=== PATIENT | female | born 1985 | race Caucasian/White ===

== ENCOUNTER 2017-01-25 14:37 | Inpatient (IN) | payer BC ==
[2017-01-25] MEDS ORDERED: Sodium Chloride 0.9% 2.5 ML Syringe FLUSH PRN (14:41)
--- NOTE | 2017-01-25 15:13 | PCM.HP ---
H&P History of Present Illness - General Date of Service: 01/25/17 Admit Problem/Dx: Admission Diagnosis/Problem Admission Diagnosis/Problem PE, Pulmonary embolism Source of Information: Patient History Limitations: Reports: No limitations - History of Present Illness Initial Comments - Free Text/Narative: This 31 year old female with pmh of HTN presented to the clinic today due to shortness of breath. She reports everyone in her office has been sick and started feeling ill on Tuesday. On Tuesday she continued to no feel well and noticed more SOB, today the SOB increased and she decided she needed to be evaluated. In the clinic, labwork was obtained. D dimer was elevated. CXR negative and CBC WNL. CT angio of chest ordered, which revealed multiple filling defects noted within the pulmonary arteries involving the right lower lobe, left upper lobe and left lower lobe bilaterally. No significant right ventricular enlargement. Heart is otherwise normal size. She reports she is currently taking control daily. She also reports she had been traveling the end of November on a flight to [place] and then on a Cruise in and near [place]. She also reports her father, who had multiple myeloma and other chronic medical issues, from a PE. She became emotional and is scared about her diagnosis. She was reassured regarding treatment and monitoring which did relieve some anxiety. She will be admitted for multiple PEs with dyspnea and tachycardia. - Related Data Allergies/Adverse Reactions: Allergies Allergy/AdvReac Type Severity Reaction Status Date / Time No Known Allergies Allergy Verified 01/25/17 15:18 Home Medications: Home Meds Hydrochlorothiazide 25 mg PO DAILY 01/25/17 [History] Levonorgestrel-Ethin Estradiol [Orsythia-28 Tablet] 1 tab PO DAILY 01/25/17 [ History] Past Medical History Cardiovascular History: Reports: Blood clots/VTE/DVT, Hypertension. Denies: CAD , [place] Respiratory History: Reports: None, PE (This admission is first. no personal history). Denies: Asthma, COPD Gastrointestinal History: Reports: None. Denies: GERD, GI bleed Genitourinary History: Reports: None. Denies: Chronic renal insuffiency Psychiatric History: Reports: None Endocrine/Metabolic History: Reports: Obesity/BMI 30+. Denies: Diabetes, type II, Hypothyroidism Hematologic History: Reports: None Social & Family History - Tobacco Use Smoking Status *Q: Former Smoker Tobacco Use Within Last Twelve Months: Cigarettes Used Tobacco, but Quit: Yes Month Tobacco Last Used: June 2016 - Alcohol Use Alcohol Use History: No Alcohol Use Frequency: Socially - Living Situation & Occupation Occupation: employed H&P Review of Systems - Review of Systems: Review Of Systems: See Below General: Reports: malaise. Denies: fever, chills HEENT: Reports: no symptoms. Denies: ear pain, headaches, post nasal drip, sinus congestion, visual changes Pulmonary: Reports: Shortness of Breath, Wheezing, Cough. Denies: Sputum Cardiovascular: Reports: chest pain (chest tightness and pressure with breathing ), dyspnea on exertion. Denies: palpitations, edema Gastrointestinal: Reports: No symptoms, Other. Denies: Abdominal pain, Black stool, Bloody stool, Nausea, Vomiting Genitourinary: Reports: no symptoms. Denies: dysuria, frequency, burning Musculoskeletal: Reports: no symptoms. Denies: leg pain Skin: Reports: no symptoms Psychiatric: Reports: no symptoms Neurological: Reports: No Symptoms Hematologic/Lymphatic: Reports: no symptoms Immunologic: Reports: no symptoms Exam - Exam Exam: See Below - Vital Signs Vital Signs: Last Vital Signs Temp 98.6 F 01/25/17 14:58 Pulse 120 H 01/25/17 14:58 Resp 18 01/25/17 14:58 BP 197/144 H 01/25/17 14:58 Pulse Ox 98 01/25/17 14:58 Weight: 186.4 kg - Exam Quality Assessment: DVT prophylaxis. No: supplemental oxygen General: alert, oriented, cooperative HEENT: Conjunctiva clear, Mucosa moist & pink, Nares patent, Normal nasal septum , Pupils reactive Neck: supple, trachea midline, 2 Lungs: Clear to auscultation, Normal respiratory effort Cardiovascular: regular rhythm, normal S1, normal S2, tachycardia. No: systolic murmur Abdomen: normal bowel sounds, soft. No: organomegaly, tenderness Extremities: normal inspection, normal pulses. No: calf tenderness, edema Neuro Extensive - Mental Status: alert, oriented x3, normal mood/affect, normal cognition Neuro Extensive - Motor, Sensory, Reflexes: CN II-XII intact, normal gait, normal reflexes Psychiatric: alert, normal affect, normal mood, anxious (intermittently) *Q Meaningful Use (ADM) - VTE *Q VTE Criteria *Q: - Stroke *Q Stroke Criteria *Q: - AMI *Q AMI Criteria *Q: - Problem List (1) Pulmonary emboli SNOMED Code(s): 53329685, 55486142 ICD Code: I26.99 - OTHER PULMONARY EMBOLISM WITHOUT ACUTE COR PULMONALE Status: Acute Current Visit: Yes Qualifiers: Chronicity: acute Acute cor pulmonale presence: without acute cor pulmonale (2) HTN (hypertension) SNOMED Code(s): 74988202 ICD Code: I10 - ESSENTIAL (PRIMARY) HYPERTENSION Status: Acute Current Visit: Yes Qualifiers: Hypertension type: essential hypertension Qualified Code(s): I10 - Essential (primary) hypertension Problem List Initiated/Reviewed/Updated: Yes Orders Last 24hrs: Active Orders 24 hr Category Date Time Status Patient Status [ADT] Routine ADT 01/25/17 14:39 Active Intake and Output [RC] QSHIFT Care 01/25/17 14:40 Active Oxygen Therapy [RC] PRN Care 01/25/17 14:39 Active Pulse Oximetry [RC] CONTINUOUS Care 01/25/17 14:40 Active Telemetry Monitoring [Cardiac Monitoring] [RC] . Care 01/25/17 14:42 Active DIRECTED Up With Assistance [RC] ASDIRECTED Care 01/25/17 14:39 Active VTE/DVT Education [RC] PER UNIT ROUTINE Care 01/25/17 14:39 Active Vital Signs [RC] Q4H Care 01/25/17 14:39 Active Regular Diet [DIET] Diet 01/25/17 Dinner Active BASIC METABOLIC PANEL,BMP [CHEM] AM Lab 01/26/17 05:11 Ordered BASIC METABOLIC PANEL,BMP [CHEM] AM Lab 01/27/17 05:11 Ordered BASIC METABOLIC PANEL,BMP [CHEM] AM Lab 01/28/17 05:11 Ordered CBC WITH AUTO DIFF [HEME] AM Lab 01/26/17 05:11 Ordered CBC WITH AUTO DIFF [HEME] AM Lab 01/27/17 05:11 Ordered CBC WITH AUTO DIFF [HEME] AM Lab 01/28/17 05:11 Ordered INR,PT,PROTHROMBIN TIME [COAG] Routine Lab 01/25/17 14:44 Ordered PTT,PARTIAL THROMBOPLSTIN TIME [COAG] Routine Lab 01/25/17 14:44 Ordered Acetaminophen [Tylenol] Med 01/25/17 14:39 Active 650 mg PO Q4H PRN Heparin Sodium/D5W [Heparin 25,000 Units in D5W 500 ML] Med 01/25/17 15:15 Ordered 25,000 units in 500 ml IV TITRATE Hydrochlorothiazide Med 01/25/17 15:15 Ordered 25 mg PO DAILY Morphine Med 01/25/17 14:39 Active 2 mg IVPUSH Q2H PRN Ondansetron [Zofran] Med 01/25/17 14:41 Active 4 mg IVPUSH Q4H PRN Sodium Chloride 0.9% [Saline Flush] Med 01/25/17 14:41 Active 2.5 ml FLUSH ASDIRECTED PRN Saline Lock Insert [OM.PC] Routine Oth 01/25/17 14:39 Ordered Resuscitation Status Routine Resus Stat 01/25/17 14:39 Ordered Medication Orders Acetaminophen (Tylenol) 650 mg PO Q4H PRN PRN Reason: Pain Heparin Sodium/Dextrose (Heparin 25,000 Units In D5w 500 Ml) 25,000 units in 500 mls @ 67.104 mls/hr IV TITRATE LAVERN; 18 UNITS/KG/HR PRN Reason: Protocol Morphine Sulfate (Morphine) 2 mg IVPUSH Q2H PRN PRN Reason: Pain (severe 7-10) Ondansetron HCl (Zofran) 4 mg IVPUSH Q4H PRN PRN Reason: Nausea Sodium Chloride (Saline Flush) 2.5 ml FLUSH ASDIRECTED PRN PRN Reason: Keep Vein Open Assessment/Plan Comment:: This 31 year old female admitted with multiple PEs 1. PE: Will intiate Heparin drip for anticoagulation. Has multiple risk factors including family history, control use and recent travel. Will discontinue control, patient aware and agrees with this. Will monitor on telemetry and continuos pulse oximetry. Oxygen PRN, analgesia for chest pain. Had discussion regarding oral regimen once heparin gtt stopped, would like to try a newer agent vs coumadin. Will monitor.
[2017-01-25] MEDS ORDERED: Heparin Sodium 5,000 Units/ML Vial IVPUSH PRN (15:20)
[2017-01-25] MEDS: Hydrochlorothiazide 25 MG Tab PO SCH (15:28)
[2017-01-25] MEDS ORDERED: Heparin Sodium 25,000 UNITS in Dextrose 5% in Water 500 ML IV SCH ×2 (15:30)
[2017-01-25] MEDS ORDERED: Heparin Sodium 5,000 Units/ML Vial IVPUSH SCH ×4 (15:30→16:06)
[2017-01-25 16:40] LABS: CHLORIDE,CL 105 mmol/L (98-110); SODIUM,NA 141 mmol/L (136-146)
[2017-01-25] MEDS ORDERED: LORazepam 1 MG Tab PO PRN (18:56)
[2017-01-26] MEDS: Acetaminophen 325 MG Tab PO PRN ×2 (00:36→09:01)
[2017-01-26 05:15] LABS: CHLORIDE,CL 103 mmol/L (98-110); SODIUM,NA 140 mmol/L (136-146)
--- NOTE | 2017-01-26 08:23 | PCM.PN ---
- General Info Date of Service: 01/26/17 Admission Dx/Problem (Free Text): Admission Diagnosis/Problem Admission Diagnosis/Problem PE, Pulmonary embolism Subjective Update: Feel good this am. Still having some SOB with chest tightness with activity and speech. When oxygen is on this is relieved. Still feeling very anxious. Functional Status: Reports: pain controlled, tolerating diet, ambulating, urinating - Review of Systems General: Reports: No Symptoms. Denies: Fever Pulmonary: Reports: shortness of breath, pleuritic chest pain. Denies: cough Cardiovascular: Reports: No Symptoms. Denies: Chest Pain, Palpitations, Edema Gastrointestinal: Reports: No symptoms. Denies: Abdominal pain, Nausea, Vomiting Genitourinary: Reports: no symptoms. Denies: dysuria, frequency, burning Musculoskeletal: Reports: no symptoms Skin: Reports: no symptoms Neurological: Reports: No Symptoms Psychiatric: Reports: no symptoms - Patient Data Vitals - most recent: Last Vital Signs Temp 97.2 F 01/26/17 04:00 Pulse 74 01/26/17 04:00 Resp 16 01/26/17 04:00 BP 134/64 01/26/17 04:00 Pulse Ox 100 01/26/17 04:00 Weight - most recent: 186.4 kg I&O - last 24 hours: Intake & Output 01/25/17 01/26/17 01/26/17 22:59 06:59 14:59 Intake Total 250 750 Balance 250 750 Lab Results last 24 hrs: Laboratory Results - last 24 hr 01/25/17 01/25/17 01/25/17 Range/Units 15:39 15:39 15:39 WBC (4.0-11.0) K/uL RBC (4.30-5.90) M/uL Hgb (12.0-16.0) g/dL Hct (36.0-46.0) % MCV (80.0-98.0) fL MCH (27.0-32.0) pg MCHC (31.0-37.0) g/dL RDW Std Deviation (28.0-62.0) fl RDW Coeff of Nicole (11.0-15.0) % Plt Count (150-400) K/uL MPV (7.40-12.00) fL Neut % (Auto) (48.0-80.0) % Lymph % (Auto) (16.0-40.0) % [place]ombs % (Auto) (0.0-15.0) % Eos % (Auto) (0.0-7.0) % Baso % (Auto) (0.0-1.5) % Neut # (Auto) (1.4-5.7) K/uL Lymph # (Auto) (0.6-2.4) K/uL [place]ombs # (Auto) (0.0-0.8) K/uL Eos # (Auto) (0.0-0.7) K/uL Baso # (Auto) (0.0-0.1) K/uL Nucleated RBC % /100WBC Nucleated RBCs # K/uL INR 1.00 (0.86-1.11) APTT 28.7 (18.6-31.3) SEC Sodium 141 (136-146) mmol/L Potassium 3.4 L (3.5-5.1) mmol/L Chloride 105 (98-110) mmol/L Carbon Dioxide 24 (21-31) mmol/L BUN 13 (6.0-23.0) mg/dL Creatinine 0.9 (0.6-1.5) mg/dL Est Cr Clr Drug Dosing 126.53 mL/min Estimated GFR (MDRD) > 60.0 ml/min Glucose 116 H (60-110) mg/dL Calcium 9.1 (8.8-10.8) mg/dL Total Bilirubin 0.3 (0.1-1.5) mg/dL AST 19 (5-40) IU/L ALT 26 (8-54) IU/L Alkaline Phosphatase 60 (40-150) Total Protein 7.9 (6.0-8.0) g/dL Albumin 3.8 (3.5-5.0) g/dL Globulin 4.1 H (2.0-3.5) g/dL Albumin/Globulin Ratio 0.9 L (1.3-2.8) 01/25/17 01/26/17 01/26/17 Range/Units 21:46 04:18 04:18 WBC 6.96 (4.0-11.0) K/uL RBC 4.84 (4.30-5.90) M/uL Hgb 12.4 (12.0-16.0) g/dL Hct 38.7 (36.0-46.0) % MCV 80.0 (80.0-98.0) fL MCH 25.6 L (27.0-32.0) pg MCHC 32.0 (31.0-37.0) g/dL RDW Std Deviation 45.7 (28.0-62.0) fl RDW Coeff of Nicole 16 H (11.0-15.0) % Plt Count 244 (150-400) K/uL MPV 9.70 (7.40-12.00) fL Neut % (Auto) 31.3 L (48.0-80.0) % Lymph % (Auto) 53.6 H (16.0-40.0) % [place]ombs % (Auto) 8.0 (0.0-15.0) % Eos % (Auto) 6.5 (0.0-7.0) % Baso % (Auto) 0.6 (0.0-1.5) % Neut # (Auto) 2.2 (1.4-5.7) K/uL Lymph # (Auto) 3.7 H (0.6-2.4) K/uL [place]ombs # (Auto) 0.6 (0.0-0.8) K/uL Eos # (Auto) 0.5 (0.0-0.7) K/uL Baso # (Auto) 0.0 (0.0-0.1) K/uL Nucleated RBC % 0.0 /100WBC Nucleated RBCs # 0 K/uL INR 1.01 (0.86-1.11) APTT 105.0 H (18.6-31.3) SEC Sodium 140 (136-146) mmol/L Potassium 3.5 (3.5-5.1) mmol/L Chloride 103 (98-110) mmol/L Carbon Dioxide 25 (21-31) mmol/L BUN 14 (6.0-23.0) mg/dL Creatinine 0.9 (0.6-1.5) mg/dL Est Cr Clr Drug Dosing 126.53 mL/min Estimated GFR (MDRD) > 60.0 ml/min Glucose 122 H (60-110) mg/dL Calcium 8.7 L (8.8-10.8) mg/dL Total Bilirubin (0.1-1.5) mg/dL AST (5-40) IU/L ALT (8-54) IU/L Alkaline Phosphatase (40-150) Total Protein (6.0-8.0) g/dL Albumin (3.5-5.0) g/dL Globulin (2.0-3.5) g/dL Albumin/Globulin Ratio (1.3-2.8) 01/26/17 Range/Units 04:18 WBC (4.0-11.0) K/uL RBC (4.30-5.90) M/uL Hgb (12.0-16.0) g/dL Hct (36.0-46.0) % MCV (80.0-98.0) fL MCH (27.0-32.0) pg MCHC (31.0-37.0) g/dL RDW Std Deviation (28.0-62.0) fl RDW Coeff of Nicole (11.0-15.0) % Plt Count (150-400) K/uL MPV (7.40-12.00) fL Neut % (Auto) (48.0-80.0) % Lymph % (Auto) (16.0-40.0) % [place]bs % (Auto) (0.0-15.0) % Eos % (Auto) (0.0-7.0) % Baso % (Auto) (0.0-1.5) % Neut # (Auto) (1.4-5.7) K/uL Lymph # (Auto) (0.6-2.4) K/uL [place]bs # (Auto) (0.0-0.8) K/uL Eos # (Auto) (0.0-0.7) K/uL Baso # (Auto) (0.0-0.1) K/uL Nucleated RBC % /100WBC Nucleated RBCs # K/uL INR 1.01 (0.86-1.11) APTT 60.4 H (18.6-31.3) SEC Sodium (136-146) mmol/L Potassium (3.5-5.1) mmol/L Chloride (98-110) mmol/L Carbon Dioxide (21-31) mmol/L BUN (6.0-23.0) mg/dL Creatinine (0.6-1.5) mg/dL Est Cr Clr Drug Dosing mL/min Estimated GFR (MDRD) ml/min Glucose (60-110) mg/dL Calcium (8.8-10.8) mg/dL Total Bilirubin (0.1-1.5) mg/dL AST (5-40) IU/L ALT (8-54) IU/L Alkaline Phosphatase (40-150) Total Protein (6.0-8.0) g/dL Albumin (3.5-5.0) g/dL Globulin (2.0-3.5) g/dL Albumin/Globulin Ratio (1.3-2.8) Med Orders - Current: Current Medications Acetaminophen (Tylenol) 650 mg PO Q4H PRN PRN Reason: Pain Last Admin: 01/26/17 00:36 Dose: 650 mg Heparin Sodium (Porcine) (Heparin Sodium) 0 units IVPUSH Q6H PRN PRN Reason: PTT LEVELS Hydrochlorothiazide (Hydrochlorothiazide) 25 mg PO DAILY LAVERN Last Admin: 01/25/17 15:28 Dose: 25 mg Heparin Sod,Pork In 0.45% Nacl (Heparin-1/2ns 25,000 Units/500) 500 mls @ 67.104 mls/hr IV TITRATE LAVERN; 18 UNITS/KG/HR PRN Reason: Protocol Last Admin: 01/26/17 01:00 Dose: 14.96 units/kg/hr, 55.8 mls/hr Lorazepam (Ativan) 1 mg PO Q6H PRN PRN Reason: Agitation Last Admin: 01/25/17 19:47 Dose: 1 mg Morphine Sulfate (Morphine) 2 mg IVPUSH Q2H PRN PRN Reason: Pain (severe 7-10) Ondansetron HCl (Zofran) 4 mg IVPUSH Q4H PRN PRN Reason: Nausea Sodium Chloride (Saline Flush) 2.5 ml FLUSH ASDIRECTED PRN PRN Reason: Keep Vein Open Discontinued Medications Heparin Sodium (Porcine) (Heparin Sodium) 5,000 units IVPUSH ONETIME LAVERN Stop: 01/25/17 17:00 Heparin Sodium (Porcine) (Heparin Sodium) 10,000 units IVPUSH ONETIME LAVERN Stop: 01/25/17 17:00 Heparin Sodium (Porcine) (Heparin Sodium) 15,000 units IVPUSH ONETIME LAVERN Stop: 01/25/17 17:00 Heparin Sodium (Porcine) (Heparin Sodium) 10,000 units IVPUSH ONETIME LAVERN Stop: 01/25/17 17:00 Last Admin: 01/25/17 16:13 Dose: 10,000 units Heparin Sodium (Porcine) 25, (000 units/ Dextrose/Water) 505 mls @ 67.77 mls/ hr IV TITRATE LAVERN; 18 UNITS/KG/HR PRN Reason: Protocol - Exam Quality Assessment: supplemental oxygen General: alert, oriented, cooperative Lungs: Clear to auscultation, Normal respiratory effort Cardiovascular: Regular Rate, Regular Rhythm Extremities: no edema, normal pulses Neurological: no new focal deficit Psy/Mental Status: alert, normal affect, normal mood - Problem List & Annotations (1) Pulmonary emboli SNOMED Code(s): 18971040, 39627497 Code(s): I26.99 - OTHER PULMONARY EMBOLISM WITHOUT ACUTE COR PULMONALE Status: Acute Current Visit: Yes Qualifiers: Chronicity: acute Acute cor pulmonale presence: without acute cor pulmonale (2) HTN (hypertension) SNOMED Code(s): 56626692 Code(s): I10 - ESSENTIAL (PRIMARY) HYPERTENSION Status: Acute Current Visit: Yes Qualifiers: Hypertension type: essential hypertension Qualified Code(s): I10 - Essential (primary) hypertension - Problem List Review Problem List Initiated/Reviewed/Updated: Yes - My Orders Last 24 Hours: My Active Orders 01/25/17 14:39 Patient Status [ADT] Routine Oxygen Therapy [RC] PRN Up With Assistance [RC] ASDIRECTED VTE/DVT Education [RC] PER UNIT ROUTINE Vital Signs [RC] Q4H Acetaminophen [Tylenol] 650 mg PO Q4H PRN Morphine 2 mg IVPUSH Q2H PRN Saline Lock Insert [OM.PC] Routine Resuscitation Status Routine 01/25/17 14:40 Intake and Output [RC] QSHIFT Pulse Oximetry [RC] CONTINUOUS 01/25/17 14:41 Ondansetron [Zofran] 4 mg IVPUSH Q4H PRN Sodium Chloride 0.9% [Saline Flush] 2.5 ml FLUSH ASDIRECTED PRN 01/25/17 14:42 Telemetry Monitoring [Cardiac Monitoring] [RC] Q8H 01/25/17 15:15 Hydrochlorothiazide 25 mg PO DAILY 01/25/17 15:19 EKG 12 Lead [EKG Documentation Completion] [RC] URGENT 01/25/17 15:20 Heparin Sodium 0 units IVPUSH Q6H PRN 01/25/17 15:30 Heparin Sod,Pork In 0.45% Nacl [Heparin-1/2Ns 25,000 Units/500] 500 ml IV TITRATE 01/25/17 Dinner Regular Diet [DIET] 01/27/17 05:11 BASIC METABOLIC PANEL,BMP [CHEM] AM CBC WITH AUTO DIFF [HEME] AM 01/28/17 05:11 BASIC METABOLIC PANEL,BMP [CHEM] AM CBC WITH AUTO DIFF [HEME] AM - Plan Plan:: This 31 year old female admitted with multiple PEs 1. PE: Continue Heparin drip for anticoagulation. Will monitor on telemetry and continuous pulse oximetry. Oxygen PRN, analgesia for chest pain. Will need to initiate Coumadin today, 10 mg and monitor INR. Unable to use new agents due to weight criteria. Will need to bridge Coumadin therapy for at least 5 days and monitor INR.
[2017-01-26] MEDS: Hydrochlorothiazide 25 MG Tab PO SCH (09:05)
[2017-01-26] MEDS: Morphine 2 MG/ML Syringe IVPUSH PRN ×2 (10:19→20:12)
[2017-01-26] MEDS: Ondansetron 4 MG/2 ML SDV IVPUSH PRN ×2 (10:19→23:37)
[2017-01-26] MEDS: LORazepam 1 MG Tab PO PRN ×2 (11:20→23:39)
[2017-01-26] MEDS ORDERED: Warfarin 10 MG Tab PO ONE (14:00)
[2017-01-27 07:41] LABS: CHLORIDE,CL 106 mmol/L (98-110); SODIUM,NA 141 mmol/L (136-146)
[2017-01-27] MEDS: Hydrochlorothiazide 25 MG Tab PO SCH (08:51)
--- NOTE | 2017-01-27 08:59 | PCM.PN ---
- General Info Date of Service: 01/27/17 Admission Dx/Problem (Free Text): Admission Diagnosis/Problem Admission Diagnosis/Problem PE, Pulmonary embolism Subjective Update: Doing better today, still has dyspnea with speech and activity, chest tightness has improved some. Feels less emotional today. Mother at bedside and discussed treatment plan and goals for Coumadin therapy and bridging with Heparin. Functional Status: Reports: pain controlled, tolerating diet, ambulating, urinating - Review of Systems General: Reports: No Symptoms Pulmonary: Reports: shortness of breath. Denies: cough Cardiovascular: Reports: Dyspnea on Exertion. Denies: Chest Pain, Edema Gastrointestinal: Reports: No symptoms. Denies: Abdominal pain, Nausea, Vomiting Genitourinary: Reports: no symptoms. Denies: dysuria, frequency, burning Musculoskeletal: Reports: no symptoms Skin: Reports: no symptoms Neurological: Reports: No Symptoms Psychiatric: Reports: no symptoms - Patient Data Vitals - most recent: Last Vital Signs Temp 97.0 F 01/27/17 08:00 Pulse 80 01/27/17 08:00 Resp 20 01/27/17 08:00 BP 150/90 H 01/27/17 08:00 Pulse Ox 99 01/27/17 08:00 Weight - most recent: 186.4 kg I&O - last 24 hours: Intake & Output 01/26/17 01/27/17 01/27/17 22:59 06:59 14:59 Intake Total 1700 2000 Output Total 900 1100 Balance 800 900 Lab Results last 24 hrs: Laboratory Results - last 24 hr 01/26/17 01/26/17 01/26/17 Range/Units 10:43 16:33 22:45 WBC (4.0-11.0) K/uL RBC (4.30-5.90) M/uL Hgb (12.0-16.0) g/dL Hct (36.0-46.0) % MCV (80.0-98.0) fL MCH (27.0-32.0) pg MCHC (31.0-37.0) g/dL RDW Std Deviation (28.0-62.0) fl RDW Coeff of Nicole (11.0-15.0) % Plt Count (150-400) K/uL MPV (7.40-12.00) fL Neut % (Auto) (48.0-80.0) % Lymph % (Auto) (16.0-40.0) % [place] % (Auto) (0.0-15.0) % Eos % (Auto) (0.0-7.0) % Baso % (Auto) (0.0-1.5) % Neut # (Auto) (1.4-5.7) K/uL Lymph # (Auto) (0.6-2.4) K/uL [place] # (Auto) (0.0-0.8) K/uL Eos # (Auto) (0.0-0.7) K/uL Baso # (Auto) (0.0-0.1) K/uL Nucleated RBC % /100WBC Nucleated RBCs # K/uL INR 1.04 0.98 0.97 (0.86-1.11) APTT 68.2 H 64.3 H 56.7 H (18.6-31.3) SEC Sodium (136-146) mmol/L Potassium (3.5-5.1) mmol/L Chloride (98-110) mmol/L Carbon Dioxide (21-31) mmol/L BUN (6.0-23.0) mg/dL Creatinine (0.6-1.5) mg/dL Est Cr Clr Drug Dosing mL/min Estimated GFR (MDRD) ml/min Glucose (60-110) mg/dL Calcium (8.8-10.8) mg/dL 01/27/17 01/27/17 01/27/17 Range/Units 07:09 07:09 07:09 WBC 6.79 (4.0-11.0) K/uL RBC 4.75 (4.30-5.90) M/uL Hgb 12.1 (12.0-16.0) g/dL Hct 38.2 (36.0-46.0) % MCV 80.4 (80.0-98.0) fL MCH 25.5 L (27.0-32.0) pg MCHC 31.7 (31.0-37.0) g/dL RDW Std Deviation 45.7 (28.0-62.0) fl RDW Coeff of Nicole 16 H (11.0-15.0) % Plt Count 228 (150-400) K/uL MPV 9.50 (7.40-12.00) fL Neut % (Auto) 41.3 L (48.0-80.0) % Lymph % (Auto) 41.2 H (16.0-40.0) % [place] % (Auto) 8.4 (0.0-15.0) % Eos % (Auto) 8.7 H (0.0-7.0) % Baso % (Auto) 0.4 (0.0-1.5) % Neut # (Auto) 2.8 (1.4-5.7) K/uL Lymph # (Auto) 2.8 H (0.6-2.4) K/uL [place] # (Auto) 0.6 (0.0-0.8) K/uL Eos # (Auto) 0.6 (0.0-0.7) K/uL Baso # (Auto) 0.0 (0.0-0.1) K/uL Nucleated RBC % 0.0 /100WBC Nucleated RBCs # 0 K/uL INR (0.86-1.11) APTT 67.9 H (18.6-31.3) SEC Sodium 141 (136-146) mmol/L Potassium 3.6 (3.5-5.1) mmol/L Chloride 106 (98-110) mmol/L Carbon Dioxide 26 (21-31) mmol/L BUN 16 (6.0-23.0) mg/dL Creatinine 0.9 (0.6-1.5) mg/dL Est Cr Clr Drug Dosing 126.53 mL/min Estimated GFR (MDRD) > 60.0 ml/min Glucose 104 (60-110) mg/dL Calcium 9.0 (8.8-10.8) mg/dL 01/27/17 Range/Units 07:09 WBC (4.0-11.0) K/uL RBC (4.30-5.90) M/uL Hgb (12.0-16.0) g/dL Hct (36.0-46.0) % MCV (80.0-98.0) fL MCH (27.0-32.0) pg MCHC (31.0-37.0) g/dL RDW Std Deviation (28.0-62.0) fl RDW Coeff of Nicole (11.0-15.0) % Plt Count (150-400) K/uL MPV (7.40-12.00) fL Neut % (Auto) (48.0-80.0) % Lymph % (Auto) (16.0-40.0) % [place] % (Auto) (0.0-15.0) % Eos % (Auto) (0.0-7.0) % Baso % (Auto) (0.0-1.5) % Neut # (Auto) (1.4-5.7) K/uL Lymph # (Auto) (0.6-2.4) K/uL [place] # (Auto) (0.0-0.8) K/uL Eos # (Auto) (0.0-0.7) K/uL Baso # (Auto) (0.0-0.1) K/uL Nucleated RBC % /100WBC Nucleated RBCs # K/uL INR 0.99 (0.86-1.11) APTT (18.6-31.3) SEC Sodium (136-146) mmol/L Potassium (3.5-5.1) mmol/L Chloride (98-110) mmol/L Carbon Dioxide (21-31) mmol/L BUN (6.0-23.0) mg/dL Creatinine (0.6-1.5) mg/dL Est Cr Clr Drug Dosing mL/min Estimated GFR (MDRD) ml/min Glucose (60-110) mg/dL Calcium (8.8-10.8) mg/dL Med Orders - Current: Current Medications Acetaminophen (Tylenol) 650 mg PO Q4H PRN PRN Reason: Pain Last Admin: 01/26/17 09:01 Dose: 650 mg Heparin Sodium (Porcine) (Heparin Sodium) 0 units IVPUSH Q6H PRN PRN Reason: PTT LEVELS Hydrochlorothiazide (Hydrochlorothiazide) 25 mg PO DAILY LAVERN Last Admin: 01/27/17 08:51 Dose: 25 mg Heparin Sod,Pork In 0.45% Nacl (Heparin-1/2ns 25,000 Units/500) 500 mls @ 67.104 mls/hr IV TITRATE LAVERN; 18 UNITS/KG/HR PRN Reason: Protocol Last Admin: 01/27/17 06:26 Dose: 14.96 units/kg/hr, 55.771 mls/hr Lorazepam (Ativan) 2 mg PO Q6H PRN PRN Reason: Anxiety Last Admin: 01/26/17 23:39 Dose: 2 mg Morphine Sulfate (Morphine) 2 mg IVPUSH Q2H PRN PRN Reason: Pain (severe 7-10) Last Admin: 01/26/17 20:12 Dose: 2 mg Ondansetron HCl (Zofran) 4 mg IVPUSH Q4H PRN PRN Reason: Nausea Last Admin: 01/26/17 23:37 Dose: 4 mg Sodium Chloride (Saline Flush) 2.5 ml FLUSH ASDIRECTED PRN PRN Reason: Keep Vein Open Warfarin Sodium (Coumadin) 15 mg PO 01/27/17@1400 LAVERN Stop: 01/27/17 14:01 Discontinued Medications Heparin Sodium (Porcine) (Heparin Sodium) 5,000 units IVPUSH ONETIME LAVERN Stop: 01/25/17 17:00 Heparin Sodium (Porcine) (Heparin Sodium) 10,000 units IVPUSH ONETIME LAVERN Stop: 01/25/17 17:00 Heparin Sodium (Porcine) (Heparin Sodium) 15,000 units IVPUSH ONETIME LAVERN Stop: 01/25/17 17:00 Heparin Sodium (Porcine) (Heparin Sodium) 10,000 units IVPUSH ONETIME LAVERN Stop: 01/25/17 17:00 Last Admin: 01/25/17 16:13 Dose: 10,000 units Heparin Sodium (Porcine) 25, (000 units/ Dextrose/Water) 505 mls @ 67.77 mls/ hr IV TITRATE LAVERN; 18 UNITS/KG/HR PRN Reason: Protocol Lorazepam (Ativan) 1 mg PO Q6H PRN PRN Reason: Agitation Last Admin: 01/25/17 19:47 Dose: 1 mg Warfarin Sodium (Coumadin) 10 mg PO ONETIME ONE Stop: 01/26/17 14:01 Last Admin: 01/26/17 14:00 Dose: 10 mg Warfarin Sodium (Coumadin Ask) 1 each PO ONETIME ONE Stop: 01/26/17 10:31 Last Admin: 01/26/17 11:28 Dose: Not Given - Exam General: alert, oriented, cooperative Lungs: Clear to auscultation, Normal respiratory effort Cardiovascular: Regular Rate, Regular Rhythm Abdomen: bowel sounds present, soft, no tenderness, no distension Extremities: no edema Neurological: no new focal deficit Psy/Mental Status: alert, normal affect, normal mood - Problem List & Annotations (1) Pulmonary emboli SNOMED Code(s): 14115442, 82930001 Code(s): I26.99 - OTHER PULMONARY EMBOLISM WITHOUT ACUTE COR PULMONALE Status: Acute Current Visit: Yes Qualifiers: Chronicity: acute Acute cor pulmonale presence: without acute cor pulmonale (2) HTN (hypertension) SNOMED Code(s): 31389814 Code(s): I10 - ESSENTIAL (PRIMARY) HYPERTENSION Status: Acute Current Visit: Yes Qualifiers: Hypertension type: essential hypertension Qualified Code(s): I10 - Essential (primary) hypertension - Problem List Review Problem List Initiated/Reviewed/Updated: Yes - My Orders Last 24 Hours: My Active Orders 01/26/17 10:29 LORazepam [Ativan] 2 mg PO Q6H PRN 01/28/17 05:11 BASIC METABOLIC PANEL,BMP [CHEM] AM CBC WITH AUTO DIFF [HEME] AM - Plan Plan:: This 31 year old female admitted with multiple PEs 1. PE: Continue Heparin drip for anticoagulation. Will monitor on telemetry and continuous pulse oximetry. Oxygen PRN, analgesia for chest pain. Continue Coumadin today pharmacy to dose and will monitor INR. Will need to bridge Coumadin therapy for at least 5 days and monitor INR.
[2017-01-27] MEDS: Acetaminophen 325 MG Tab PO PRN (13:28)
[2017-01-27] MEDS ORDERED: Warfarin 5 MG Tab PO SCH (14:00)
[2017-01-28] MEDS: LORazepam 1 MG Tab PO PRN (02:58)
[2017-01-28] MEDS: Acetaminophen 325 MG Tab PO PRN (03:03)
[2017-01-28 05:27] LABS: CHLORIDE,CL 104 mmol/L (98-110); SODIUM,NA 139 mmol/L (136-146)
[2017-01-28] MEDS: Hydrochlorothiazide 25 MG Tab PO SCH (09:18)
[2017-01-28] MEDS: Morphine 2 MG/ML Syringe IVPUSH PRN (09:46)
[2017-01-28] MEDS ORDERED: Fluticasone Propionate Nasal Spray 16 GM Bottle NASBOTH SCH (10:15)
[2017-01-28 12:26] VITALS: BP 164/121
[2017-01-28] MEDS ORDERED: Enoxaparin 150 MG/1 ML Syringe SUBCUT SCH (12:30)
[2017-01-28] MEDS ORDERED: Enoxaparin 40 MG/0.4 ML Syringe SUBCUT SCH (12:30)
[2017-01-28] MEDS ORDERED: Enoxaparin 150 MG/1 ML Syringe SUBCUT ONE (12:30)
[2017-01-28] MEDS ORDERED: Warfarin 5 MG Tab PO SCH (14:00)
--- NOTE | 2017-02-01 10:05 | PCM.DCSUM1 ---
Discharge Summary - Hospital Course Free Text/Narrative:: Admission diagnosis: 1. Multiple PE's Discharge diagnosis: 1. Multiple PE's 2. Sinus congestion 31 year old female admitted with multiple PE's as shown on Chest CT angio. Patient also had an elevated D-Dimer. She was started on a Heparin drip for bridging while starting daily Warfarin until her INR was therapeutic between 2- 3. Daily INR's were done with her INR at discharge being 1.12. She was started on Coumadin as opposed to the newer anticoagulant agents because of weight based restrictions in terms of their dosing. Throughout admission, the patients HR and RR improved to WNL and her work of breathing improved. She did not require supplemental O2 during admission. She was anxious at times throughout admission because of a family history of blood clots. Her control was d/c upon admission. At discharge, the heparin drip was stopped and she was started on Lovenox 190mg BID. Prior to leaving the hospital, the pharmacist came by to help her with her first injection. Patient also developed some sinus congestion during admission and was started on Flonase. ABX were not started as they would affect the patients INR. - Discharge Data Discharge Date: 01/28/17 Discharge Disposition: Home, Self-Care 01 Condition: Good - Patient Instructions Diet: Usual Diet as Tolerated Activity: As Tolerated Driving: May Drive Today Showering/Bathing: May Shower Notify Provider of: Fever, Increased Pain, Nausea and/or Vomiting - Discharge Plan Prescriptions/Med Rec: Enoxaparin [Lovenox] 40 mg SUBCUT Q12HR #10 syringe Enoxaparin [Lovenox] 150 mg SQ BID #10 syringe Fluticasone Propionate [Flonase] 2 sprays NASBOTH DAILY #1 bottle Home Medications: Home Meds Hydrochlorothiazide 25 mg PO DAILY 01/25/17 [History] Enoxaparin [Lovenox] 40 mg SUBCUT Q12HR #10 syringe 01/28/17 [Rx] Enoxaparin [Lovenox] 150 mg SQ BID #10 syringe 01/28/17 [Rx] Fluticasone Propionate [Flonase] 2 sprays NASBOTH DAILY #1 bottle 01/28/17 [Rx] Orphenadrine [Norflex] 100 mg PO BID #28 tab.er 01/31/17 [Rx] Warfarin [Coumadin] 15 mg PO DAILY 01/31/17 [History] methylPREDNISolone [Medrol] 4 mg PO DAILY #21 tab.ds.pk 01/31/17 [Rx] Patient Handouts: Warfarin: What You Need to Know, Fluticasone nasal spray, Enoxaparin injection, Warfarin tablets, Pulmonary Embolism, How and Where to Give Subcutaneous Injections Using a Prefilled Syringe Referrals: Radha Temple PA [Physician Roof Mechanic] - 02/02/17 10:00 am - Discharge Summary/Plan Comment DC Time >30 min.: No Discharge Summary/Plan Comment: Admission diagnosis: 1. Multiple PE's Discharge diagnosis: 1. Multiple PE's 2. Sinus congestion 31 year old female admitted with multiple PE's as shown on Chest CT angio. Patient also had an elevated D-Dimer. She was started on a Heparin drip for bridging while starting daily Warfarin until her INR was therapeutic between 2- 3. Daily INR's were done with her INR at discharge being 1.12. She was started on Coumadin as opposed to the newer anticoagulant agents because of weight based restrictions in terms of their dosing. Throughout admission, the patients HR and RR improved to WNL and her work of breathing improved. She did not require supplemental O2 during admission. She was anxious at times throughout admission because of a family history of blood clots. Her control was d/c upon admission. At discharge, the heparin drip was stopped and she was started on Lovenox 190mg BID. Prior to leaving the hospital, the pharmacist came by to help her with her first injection. Patient also developed some sinus congestion during admission and was started on Flonase. ABX were not started as they would affect the patients INR. Discharge plan: 1. Prescribed Lovenox 190mg BID until she f/u with Radha Fuchs on 02/02/17. 2. Prescribed flonase for sinus congestion 3. Prescribed Warfarin 15mg daily. Will get INR checked on Tuesday01/31/17. A referral has been [facility] to [facility]. 4. Patients control was d/c and she was told to stop taking it. - Patient Data Vitals - Most Recent: Last Vital Signs Temp 97.2 F 01/28/17 12:00 Pulse 115 H 01/28/17 12:00 Resp 18 01/28/17 12:00 BP 164/121 H 01/28/17 12:00 Pulse Ox 97 01/28/17 14:00 Weight - Most Recent: 410 lb 15.066 oz Med Orders - Current: Current Medications Discontinued Medications Acetaminophen (Tylenol) 650 mg PO Q4H PRN PRN Reason: Pain Last Admin: 01/28/17 03:03 Dose: 650 mg Enoxaparin Sodium (Lovenox) 150 mg SUBCUT ONETIME LAVERN Last Admin: 01/28/17 12:38 Dose: 150 mg Enoxaparin Sodium (Lovenox) 40 mg SUBCUT ONETIME LAVERN Last Admin: 01/28/17 12:38 Dose: 40 mg Fluticasone Propionate (Flonase) 0 gm NASBOTH DAILY LAVERN Last Admin: 01/28/17 11:16 Dose: 2 spray Heparin Sodium (Porcine) (Heparin Sodium) 0 units IVPUSH Q6H PRN PRN Reason: PTT LEVELS Heparin Sodium (Porcine) (Heparin Sodium) 5,000 units IVPUSH ONETIME LAVERN Stop: 01/25/17 17:00 Heparin Sodium (Porcine) (Heparin Sodium) 10,000 units IVPUSH ONETIME LAVERN Stop: 01/25/17 17:00 Heparin Sodium (Porcine) (Heparin Sodium) 15,000 units IVPUSH ONETIME LAVERN Stop: 01/25/17 17:00 Heparin Sodium (Porcine) (Heparin Sodium) 10,000 units IVPUSH ONETIME LAVERN Stop: 01/25/17 17:00 Last Admin: 01/25/17 16:13 Dose: 10,000 units Hydrochlorothiazide (Hydrochlorothiazide) 25 mg PO DAILY LAVERN Last Admin: 01/28/17 09:18 Dose: 25 mg Heparin Sodium (Porcine) 25, (000 units/ Dextrose/Water) 505 mls @ 67.77 mls/ hr IV TITRATE LAVERN; 18 UNITS/KG/HR PRN Reason: Protocol Heparin Sod,Pork In 0.45% Nacl (Heparin-1/2ns 25,000 Units/500) 500 mls @ 67.104 mls/hr IV TITRATE LAVERN; 18 UNITS/KG/HR PRN Reason: Protocol Last Titration: 01/28/17 06:51 Dose: 12.96 units/kg/hr, 48.315 mls/hr Lorazepam (Ativan) 1 mg PO Q6H PRN PRN Reason: Agitation Last Admin: 01/25/17 19:47 Dose: 1 mg Lorazepam (Ativan) 2 mg PO Q6H PRN PRN Reason: Anxiety Last Admin: 01/28/17 02:58 Dose: 2 mg Morphine Sulfate (Morphine) 2 mg IVPUSH Q2H PRN PRN Reason: Pain (severe 7-10) Last Admin: 01/28/17 09:46 Dose: 2 mg Ondansetron HCl (Zofran) 4 mg IVPUSH Q4H PRN PRN Reason: Nausea Last Admin: 01/26/17 23:37 Dose: 4 mg Sodium Chloride (Saline Flush) 2.5 ml FLUSH ASDIRECTED PRN PRN Reason: Keep Vein Open Warfarin Sodium (Coumadin) 10 mg PO ONETIME ONE Stop: 01/26/17 14:01 Last Admin: 01/26/17 14:00 Dose: 10 mg Warfarin Sodium (Coumadin Ask) 1 each PO ONETIME ONE Stop: 01/26/17 10:31 Last Admin: 01/26/17 11:28 Dose: Not Given Warfarin Sodium (Coumadin) 15 mg PO 01/27/17@1400 COUNT INCLUDES THE [facility] Stop: 01/27/17 14:01 Last Admin: 01/27/17 13:25 Dose: 15 mg Warfarin Sodium (Coumadin Ask) 1 each PO DAILY@1400 COUNT INCLUDES THE [facility] Warfarin Sodium (Coumadin) 15 mg PO 01/28/17@1400 COUNT INCLUDES THE [facility] Stop: 01/28/17 14:01 Last Admin: 01/28/17 13:24 Dose: 15 mg *Q Meaningful Use (DIS) - VTE *Q VTE Criteria *Q: - Stroke *Q Stroke Criteria *Q: - AMI *Q AMI Criteria *Q:
== END 2017-01-28 13:50 | disposition home or self-care (01) | DRG 134 ==
LOC: MW.MS 14:37
PROVIDERS: ADMIT Internal Medicine; ATTEND Internal Medicine
DX: I26.99 Other pulmonary embolism without acute cor pulmonale (principal); I10 Essential (primary) hypertension; Z79.3 Long term (current) use of hormonal contraceptives; Z86.718 Personal history of other venous thrombosis and embolism; E66.9 Obesity, unspecified; Z68.30 Body mass index [BMI] 30.0-30.9, adult; Z87.891 Personal history of nicotine dependence; R06.00 Dyspnea, unspecified; R79.89 Other specified abnormal findings of blood chemistry
CPT/HCPCS: 36415; 71020; 71020-26; 71275; 71275-26; 80048; 80053; 85025; 85379; 85610; 85730; 93005; A9270-GY; J1644; J1650; J2270; J2405; Q9967

== ENCOUNTER 2017-01-31 11:54 | Emergency (ER) | payer BC ==
[2017-01-31] MEDS ORDERED: Morphine 2 MG/ML Syringe IVPUSH ONE (12:23)
[2017-01-31] MEDS ORDERED: Sodium Chloride 0.9% 1,000 ML IV ONE (12:23)
[2017-01-31] MEDS ORDERED: Ondansetron 4 MG/2 ML SDV IVPUSH ONE (12:23)
[2017-01-31] MEDS ORDERED: Ketorolac 30 MG/ML SDV IVPUSH ONE (12:23)
--- NOTE | 2017-01-31 12:26 | EDM.PDOC ---
ED HPI GENERAL MEDICAL PROBLEM - General Chief Complaint: General Stated Complaint: BACK Time Seen by Provider: 01/31/17 12:25 Source of Information: Reports: Patient, Family History Limitations: Reports: No limitations - History of Present Illness INITIAL COMMENTS - FREE TEXT/NARRATIVE: History of present illness: [A 31-year-old female presenting with acute onset lower back pain. Patient was discharged from the hospital approximately 3 days ago for treatment of a PE. Patient indicates she was half asleep and rolled over this morning felt a stabbing pain in her lower back and subsequently felt like she was nauseated and would vomit. Patient indicates that it is very painful in her lower back she called to her mother from her bed and they returned here since she was instructed on discharge to return if she had any pain or any concerns. She denies any shortness of breath or difficulty breathing or any chest pain indicates that the pain is strictly related to her back and she must ambulate hunched over.] Review of systems: As per history of present illness and below otherwise all systems reviewed and negative. Past medical history: As per history of present illness and as reviewed below otherwise noncontributory. Surgical history: As per history of present illness and as reviewed below otherwise noncontributory. Social history: No reported history of drug or alcohol abuse. Family history: As per history of present illness and as reviewed below otherwise noncontributory. Physical exam: HEENT: Atraumatic, normocephalic, pupils reactive, negative for conjunctival pallor or scleral icterus, mucous membranes moist, throat clear, neck supple, nontender, trachea midline. Lungs: Clear to auscultation, breath sounds equal bilaterally, chest nontender. Heart: S1S2, regular, negative for clicks, rubs, or JVD. Abdomen: Soft, nondistended, nontender. Negative for masses or hepatosplenomegaly. Negative for costovertebral tenderness. Pelvis: Stable nontender. Genitourinary: Deferred. Rectal: Deferred. Extremities: Atraumatic, negative for cords or calf pain. Neurovascular unremarkable. Neuro: Awake, alert, oriented. Cranial nerves II through XII unremarkable. Cerebellum unremarkable. Motor and sensory unremarkable throughout. Exam nonfocal. Diagnostics: [For x-ray of the back lumbar spine sacral and coccyx] Therapeutics: [IV fluid, Toradol, Zofran, morphine] Impression: [Back pain] Plan: [Muscle relaxers, were brief bursts of steroids followup with PCP] Definitive disposition and diagnosis as appropriate pending reevaluation and review of above. Bilateral Back Pain Score (Numeric/FACES): 8 - Related Data Allergies Allergy/AdvReac Type Severity Reaction Status Date / Time No Known Allergies Allergy Verified 01/25/17 15:18 Home Meds: Home Meds Hydrochlorothiazide 25 mg PO DAILY 01/25/17 [History] Enoxaparin [Lovenox] 40 mg SUBCUT Q12HR #10 syringe 01/28/17 [Rx] Enoxaparin [Lovenox] 150 mg SQ BID #10 syringe 01/28/17 [Rx] Fluticasone Propionate [Flonase] 2 sprays NASBOTH DAILY #1 bottle 01/28/17 [Rx] Orphenadrine [Norflex] 100 mg PO BID #28 tab.er 01/31/17 [Rx] Warfarin [Coumadin] 15 mg PO DAILY 01/31/17 [History] methylPREDNISolone [Medrol] 4 mg PO DAILY #21 tab.ds.pk 01/31/17 [Rx] Past Medical History Cardiovascular History: Reports: Blood clots/VTE/DVT, Hypertension Respiratory History: Reports: None, PE Gastrointestinal History: Reports: None Genitourinary History: Reports: None 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 (see below) Other OB/BYN History: on control pills Psychiatric History: Reports: None Endocrine/Metabolic History: Reports: Obesity/BMI 30+ Hematologic History: Reports: None - Past Surgical History GI Surgical History: Reports: Appendectomy Social & Family History - Tobacco Use Smoking Status *Q: Never Smoker Used Tobacco, but Quit: Yes Month Tobacco Last Used: June 2016 Second Hand Smoke Exposure: No - Caffeine Use Caffeine Use: Reports: None - Alcohol Use Days Per Week of Alcohol Use: 1 Number of Drinks Per Day: 1 Total Drinks Per Week: 1 - Recreational Drug Use Recreational Drug Use: No - Living Situation & Occupation Occupation: employed ED ROS GENERAL - Review of Systems Review Of Systems: See Below (History of present illness) ED EXAM, GENERAL - Physical Exam Exam: See Below (History of present illness) Course - Vital Signs Last Recorded V/S: Last Vital Signs Temp 36.3 C 01/31/17 12:15 Pulse 77 01/31/17 12:15 Resp 18 01/31/17 12:15 BP 151/106 H 01/31/17 12:15 Pulse Ox 96 01/31/17 12:15 - Orders/Labs/Meds Orders: Active Orders 24 hr Category Date Time Status EKG 12 Lead [EKG Documentation Completion] [RC] STAT Care 01/31/17 13:38 Active Labs: Laboratory Tests 01/31/17 01/31/17 01/31/17 Range/Units 12:43 12:43 12:43 WBC 7.85 (4.0-11.0) K/uL RBC 5.33 (4.30-5.90) M/uL Hgb 13.8 (12.0-16.0) g/dL Hct 42.3 (36.0-46.0) % MCV 79.4 L (80.0-98.0) fL MCH 25.9 L (27.0-32.0) pg MCHC 32.6 (31.0-37.0) g/dL RDW Std Deviation 44.6 (28.0-62.0) fl RDW Coeff of Nicole 15 (11.0-15.0) % Plt Count 249 (150-400) K/uL MPV 9.40 (7.40-12.00) fL Neut % (Auto) 49.0 (48.0-80.0) % Lymph % (Auto) 38.0 (16.0-40.0) % [place] % (Auto) 8.4 (0.0-15.0) % Eos % (Auto) 4.2 (0.0-7.0) % Baso % (Auto) 0.4 (0.0-1.5) % Neut # (Auto) 3.9 (1.4-5.7) K/uL Lymph # (Auto) 3.0 H (0.6-2.4) K/uL [place] # (Auto) 0.7 (0.0-0.8) K/uL Eos # (Auto) 0.3 (0.0-0.7) K/uL Baso # (Auto) 0.0 (0.0-0.1) K/uL Nucleated RBC % 0.0 /100WBC Nucleated RBCs # 0 K/uL INR 2.10 H (0.86-1.11) Sodium 139 (136-146) mmol/L Potassium 4.1 (3.5-5.1) mmol/L Chloride 105 (98-110) mmol/L Carbon Dioxide 24 (21-31) mmol/L BUN 19 (6.0-23.0) mg/dL Creatinine 0.9 (0.6-1.5) mg/dL Est Cr Clr Drug Dosing 126.53 mL/min Estimated GFR (MDRD) > 60.0 ml/min Glucose 121 H (60-110) mg/dL Calcium 9.6 (8.8-10.8) mg/dL Total Bilirubin 0.2 (0.1-1.5) mg/dL AST 50 H (5-40) IU/L ALT 94 H (8-54) IU/L Alkaline Phosphatase 73 (40-150) Total Protein 8.3 H (6.0-8.0) g/dL Albumin 4.0 (3.5-5.0) g/dL Globulin 4.3 H (2.0-3.5) g/dL Albumin/Globulin Ratio 0.9 L (1.3-2.8) Meds: Medications Discontinued Medications Generic Name Dose Route Start Last Admin Trade Name Freq PRN Reason Stop Dose Admin Sodium Chloride 1,000 mls @ 999 mls/hr 01/31/17 12:23 01/31/17 12:44 Normal Saline IV 01/31/17 13:23 999 mls/hr STAT ONE Administration Ketorolac Tromethamine 30 mg 01/31/17 12:23 01/31/17 12:44 Toradol IVPUSH 01/31/17 12:24 30 mg ONETIME ONE Administration Morphine Sulfate 2 mg 01/31/17 12:23 01/31/17 12:45 Morphine IVPUSH 01/31/17 12:24 2 mg ONETIME ONE Administration Ondansetron HCl 8 mg 01/31/17 12:23 01/31/17 12:44 Zofran IVPUSH 01/31/17 12:24 8 mg ONETIME ONE Administration Departure - Departure Time of Disposition: 13:56 Disposition: Home, Self-Care 01 Condition: good Clinical Impression: Lower back pain Qualifiers: Chronicity: acute Back pain laterality: midline Sciatica presence: unspecified whether sciatica present Qualified Code(s): M54.5 - Low back pain Prescriptions: Orphenadrine [Norflex] 100 mg PO BID #28 tab.er methylPREDNISolone [Medrol] 4 mg PO DAILY #21 tab.ds.pk Forms: ED Department Discharge Additional Instructions: The following information is given to patients seen in the emergency department who are being discharged to home. This information is to outline your options for follow-up care. We provide all patients seen in our emergency department with a follow-up referral. The need for follow-up, as well as the timing and circumstances, are variable depending upon the specifics of your emergency department visit. If you don't have a primary care physician on staff, we will provide you with a referral. We always advise you to contact your personal physician following an emergency department visit to inform them of the circumstance of the visit and for follow-up with them and/or the need for any referrals to a consulting specialist. The emergency department will also refer you to a specialist when appropriate. This referral assures that you have the opportunity for follow-up care with a specialist. All of these measure are taken in an effort to provide you with optimal care, which includes your follow-up. Under all circumstances we always encourage you to contact your private physician who remains a resource for coordinating your care. When calling for follow-up care, please make the office aware that this follow-up is from your recent emergency room visit. If for any reason you are refused follow-up, please contact the [facility] Emergency Department at and asked to speak to the emergency department charge nurse. Take medication as directed Followup with PCP 1-2 days Return to ED as needed as discussed - My Orders Last 24 Hours: My Active Orders 01/31/17 13:38 EKG 12 Lead [EKG Documentation Completion] [RC] STAT - Assessment/Plan Last 24 Hours: My Active Orders 01/31/17 13:38 EKG 12 Lead [EKG Documentation Completion] [RC] STAT
[2017-01-31 13:17] LABS: CHLORIDE,CL 105 mmol/L (98-110); SODIUM,NA 139 mmol/L (136-146)
--- NOTE | 2017-01-31 13:43 | CR ---
EXAMINATION: Lumbar spine HISTORY: Pain COMPARISON: 07/16/2014 TECHNIQUE: AP and lateral views of the lumbar spine. Single lateral view of the sacrum and coccyx wa s obtained FINDINGS: The lumbar spinal alignment appears normal. The vertebral body heights and disc spaces devin ear well-maintained. There is no fracture or dislocation. Early marginal osteophytes are noted. The SI joints are symmetric. The sacrum and coccyx appear intact. Bone mineralization is normal. IMPRESSION: No acute osseous abnormality demonstrated.
[2017-01-31 14:24] VITALS: BP 118/78
== END 2017-01-31 14:24 | disposition home or self-care (01) ==
LOC: MW.ED 11:54
DX: M54.5 Low back pain (principal); Z79.899 Other long term (current) drug therapy; Z90.49 Acquired absence of other specified parts of digestive tract; I10 Essential (primary) hypertension; E66.9 Obesity, unspecified; Z68.42 Body mass index [BMI] 45.0-49.9, adult
CPT/HCPCS: 36415; 72100; 80053; 85025; 85610; 93005; 96361; 96374; 96375; 99284; J1885; J2270; J2405; J7040

== ENCOUNTER → 2017-02-02 | Outpatient (CLI) | payer BC | LOC: MW.CHFP 10:40 | PROVIDERS: ATTEND Physician Assistant | DX: I26.99 Other pulmonary embolism without acute cor pulmonale (principal) | CPT/HCPCS: 36415; 81291; 85300; 85303; 85306; 85610; 85611; 85613; 85670; 85730; 85732; 86146; 86147 ==

== ENCOUNTER 2017-09-11 21:48 | Observation (INO) | payer BC ==
[2017-09-11] MEDS ORDERED: Sodium Chloride 0.9% 10 ML Syringe FLUSH PRN (22:24)
[2017-09-11] MEDS ORDERED: Sodium Chloride 0.9% 2.5 ML Syringe FLUSH PRN (22:24)
--- NOTE | 2017-09-11 22:29 | EDM.PDOC ---
ED HPI GENERAL MEDICAL PROBLEM - General Chief Complaint: Headache Stated Complaint: SEIZURE Time Seen by Provider: 09/11/17 22:18 - History of Present Illness INITIAL COMMENTS - FREE TEXT/NARRATIVE: HISTORY AND PHYSICAL: History of present illness: Patient is a 32-year-old white female history of pulmonary embolus and was currently on warfarin who presents status post seizure this was witnessed and generalized lasted approximately 1-2 minutes with a postictal period upon arrival here via paramedics she's awake alert with no complaints other than mild headache and no numbness no weakness no visual disturbances she denies any recent trauma denies chest pain but states she has had some mild shortness of breath recently she states she's been compliant and therapeutic on her warfarin Review of systems: As per history of present illness and below otherwise all systems reviewed and negative. Past medical history: As per history of present illness and as reviewed below otherwise noncontributory. Surgical history: As per history of present illness and as reviewed below otherwise noncontributory. Social history: No reported history of drug or alcohol abuse. Family history: As per history of present illness and as reviewed below otherwise noncontributory. Physical exam: HEENT: Atraumatic, normocephalic, pupils reactive, negative for conjunctival pallor or scleral icterus, mucous membranes moist, throat clear, neck supple, nontender, trachea midline. Lungs: Clear to auscultation, breath sounds equal bilaterally, chest nontender. Heart: S1S2, regular, negative for clicks, rubs, or JVD. Abdomen: Soft, nondistended, nontender. Negative for masses or hepatosplenomegaly. Negative for costovertebral tenderness. Pelvis: Stable nontender. Genitourinary: Deferred. Rectal: Deferred. Extremities: Atraumatic, negative for cords or calf pain. Neurovascular unremarkable. Neuro: Awake, alert, oriented. Cranial nerves II through XII unremarkable. Cerebellum unremarkable. Motor and sensory unremarkable throughout. Exam nonfocal. Diagnostics: CBC CMP PT/INR chest x-ray EKG prolactin level urine drug screen chest x-ray CT brain Therapeutics: IV monitor Impression: #1 new onset seizure #2 history of pulmonary embolism Definitive disposition and diagnosis as appropriate pending reevaluation and review of above. Headache Pain Score (Numeric/FACES): 6 - Related Data Allergies Allergy/AdvReac Type Severity Reaction Status Date / Time No Known Allergies Allergy Verified 09/11/17 22:11 Home Meds: Home Meds Hydrochlorothiazide 25 mg PO DAILY 01/25/17 [History] Enoxaparin [Lovenox] 40 mg SUBCUT Q12HR #10 syringe 01/28/17 [Rx] Enoxaparin [Lovenox] 150 mg SQ BID #10 syringe 01/28/17 [Rx] Fluticasone Propionate [Flonase] 2 sprays NASBOTH DAILY #1 bottle 01/28/17 [Rx] Orphenadrine [Norflex] 100 mg PO BID #28 tab.er 01/31/17 [Rx] Warfarin [Coumadin] 15 mg PO DAILY 01/31/17 [History] methylPREDNISolone [Medrol] 4 mg PO DAILY #21 tab.ds.pk 01/31/17 [Rx] Past Medical History HEENT History: Reports: None Cardiovascular History: Reports: Blood Clots/VTE/DVT, Hypertension Respiratory History: Reports: None, PE Gastrointestinal History: Reports: None Genitourinary History: Reports: None 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) Other OB/BYN History: on control pills Musculoskeletal History: Reports: None Neurological History: Reports: None Psychiatric History: Reports: None Endocrine/Metabolic History: Reports: Obesity/BMI 30+ Hematologic History: Reports: None Immunologic History: Reports: None Oncologic (Cancer) History: Reports: None Dermatologic History: Reports: None - Infectious Disease History Infectious Disease History: Reports: Chicken Pox - Past Surgical History Head Surgeries/Procedures: Reports: None HEENT Surgical History: Reports: None Respiratory Surgical History: Reports: None GI Surgical History: Reports: Appendectomy Endocrine Surgical History: Reports: None Neurological Surgical History: Reports: None Musculoskeletal Surgical History: Reports: None Oncologic Surgical History: Reports: None Dermatological Surgical History: Reports: None Social & Family History - Family History Family Medical History: Noncontributory - Tobacco Use Smoking Status *Q: Never Smoker Used Tobacco, but Quit: Yes Month Tobacco Last Used: June 2016 Second Hand Smoke Exposure: No - Caffeine Use Caffeine Use: Reports: Coffee - Alcohol Use Days Per Week of Alcohol Use: 1 Number of Drinks Per Day: 1 Total Drinks Per Week: 1 - Recreational Drug Use Recreational Drug Use: No - Living Situation & Occupation Occupation: Employed ED ROS GENERAL - Review of Systems Review Of Systems: ROS reveals no pertinent complaints other than HPI. ED EXAM, GENERAL - Physical Exam Exam: See Below (The dictation) Course - Vital Signs Last Recorded V/S: Last Vital Signs Temp 36.8 C 09/11/17 22:11 Pulse 155 H 09/11/17 22:11 Resp 20 09/11/17 22:11 BP 163/106 H 09/11/17 22:11 Pulse Ox 99 09/11/17 23:10 - Orders/Labs/Meds Orders: Active Orders 24 hr Category Date Time Status Cardiac Monitoring [RC] . DIRECTED Care 09/11/17 22:24 Active EKG Documentation Completion [RC] STAT Care 09/11/17 22:24 Active Oxygen Therapy, ED [RC] ASDIRECTED Care 09/11/17 22:24 Active Chest 1V Frontal [CR] Stat Exams 09/11/17 22:25 Taken Head wo Cont [CT] Stat Exams 09/11/17 22:25 Taken Sodium Chloride 0.9% [Saline Flush] Med 09/11/17 22:24 Active 10 ml FLUSH ASDIRECTED PRN Sodium Chloride 0.9% [Saline Flush] Med 09/11/17 22:24 Active 2.5 ml FLUSH ASDIRECTED PRN Saline Lock Insert [OM.PC] Stat Oth 09/11/17 22:24 Ordered Medication Orders Sodium Chloride (Saline Flush) 10 ml FLUSH ASDIRECTED PRN PRN Reason: Keep Vein Open Sodium Chloride (Saline Flush) 2.5 ml FLUSH ASDIRECTED PRN PRN Reason: Keep Vein Open Labs: Laboratory Tests 09/11/17 09/11/17 09/11/17 Range/Units 22:05 22:05 22:44 WBC 14.09 H (4.0-11.0) K/uL RBC 4.98 (4.30-5.90) M/uL Hgb 13.9 (12.0-16.0) g/dL Hct 41.5 (36.0-46.0) % MCV 83.3 (80.0-98.0) fL MCH 27.9 (27.0-32.0) pg MCHC 33.5 (31.0-37.0) g/dL RDW Std Deviation 46.0 (28.0-62.0) fl RDW Coeff of Nicole 15 (11.0-15.0) % Plt Count 288 (150-400) K/uL MPV 9.60 (7.40-12.00) fL Neut % (Auto) 77.0 (48.0-80.0) % Lymph % (Auto) 15.7 L (16.0-40.0) % [place] % (Auto) 5.6 (0.0-15.0) % Eos % (Auto) 1.5 (0.0-7.0) % Baso % (Auto) 0.2 (0.0-1.5) % Neut # (Auto) 10.9 H (1.4-5.7) K/uL Lymph # (Auto) 2.2 (0.6-2.4) K/uL [place] # (Auto) 0.8 (0.0-0.8) K/uL Eos # (Auto) 0.2 (0.0-0.7) K/uL Baso # (Auto) 0.0 (0.0-0.1) K/uL Nucleated RBC % 0.0 /100WBC Nucleated RBCs # 0 K/uL INR (0.86-1.11) Sodium (136-146) mmol/L Potassium (3.5-5.1) mmol/L Chloride (98-110) mmol/L Carbon Dioxide (21-31) mmol/L BUN (6.0-23.0) mg/dL Creatinine (0.6-1.5) mg/dL Est Cr Clr Drug Dosing mL/min Estimated GFR (MDRD) ml/min Glucose (60-110) mg/dL Calcium (8.8-10.8) mg/dL Total Bilirubin (0.1-1.5) mg/dL AST (5-40) IU/L ALT (8-54) IU/L Alkaline Phosphatase (40-150) Total Protein (6.0-8.0) g/dL Albumin (3.5-5.0) g/dL Globulin (2.0-3.5) g/dL Albumin/Globulin Ratio (1.3-2.8) Prolactin (0-27) ng/mL HCG, Qual (NEG) Urine Color YELLOW Urine Appearance SLT CLOUDY Urine pH 5.5 (5.0-8.0) Ur Specific [place] >= 1.030 (1.001-1.035) Urine Protein TRACE (NEGATIVE) mg/dL Urine Glucose (UA) NEGATIVE (NEGATIVE) mg/dL Urine Ketones NEGATIVE (NEGATIVE) mg/dL Urine Occult Blood NEGATIVE (NEGATIVE) Urine Nitrite NEGATIVE (NEGATIVE) Urine Bilirubin NEGATIVE (NEGATIVE) Urine Urobilinogen 0.2 (<2.0) EU/dL Ur Leukocyte Esterase SMALL (NEGATIVE) Urine RBC 0-3 (0-2/HPF) Urine WBC 4-6 (0-5/HPF) Ur Epithelial Cells MODERATE (NONE-FEW) Urine Bacteria FEW (NEGATIVE) Urine Opiates Screen NEGATIVE (NEGATIVE) Ur Oxycodone Screen NEGATIVE (NEGATIVE) Urine Methadone Screen NEGATIVE (NEGATIVE) Ur Barbiturates Screen NEGATIVE (NEGATIVE) Ur Phencyclidine Scrn NEGATIVE (NEGATIVE) Ur Amphetamine Screen NEGATIVE (NEGATIVE) U Methamphetamines Scrn NEGATIVE (NEGATIVE) U Benzodiazepines Scrn NEGATIVE (NEGATIVE) U Cocaine Metab Screen NEGATIVE (NEGATIVE) U Marijuana (THC) Screen NEGATIVE (NEGATIVE) 09/11/17 09/11/17 09/11/17 Range/Units 22:44 22:44 22:44 WBC (4.0-11.0) K/uL RBC (4.30-5.90) M/uL Hgb (12.0-16.0) g/dL Hct (36.0-46.0) % MCV (80.0-98.0) fL MCH (27.0-32.0) pg MCHC (31.0-37.0) g/dL RDW Std Deviation (28.0-62.0) fl RDW Coeff of Nicole (11.0-15.0) % Plt Count (150-400) K/uL MPV (7.40-12.00) fL Neut % (Auto) (48.0-80.0) % Lymph % (Auto) (16.0-40.0) % [place] % (Auto) (0.0-15.0) % Eos % (Auto) (0.0-7.0) % Baso % (Auto) (0.0-1.5) % Neut # (Auto) (1.4-5.7) K/uL Lymph # (Auto) (0.6-2.4) K/uL [place] # (Auto) (0.0-0.8) K/uL Eos # (Auto) (0.0-0.7) K/uL Baso # (Auto) (0.0-0.1) K/uL Nucleated RBC % /100WBC Nucleated RBCs # K/uL INR 2.02 H (0.86-1.11) Sodium 136 (136-146) mmol/L Potassium 3.5 (3.5-5.1) mmol/L Chloride 102 (98-110) mmol/L Carbon Dioxide 22 (21-31) mmol/L BUN 14 (6.0-23.0) mg/dL Creatinine 1.3 (0.6-1.5) mg/dL Est Cr Clr Drug Dosing 86.81 mL/min Estimated GFR (MDRD) 48.1 ml/min Glucose 214 H (60-110) mg/dL Calcium 9.7 (8.8-10.8) mg/dL Total Bilirubin 0.2 (0.1-1.5) mg/dL AST 15 (5-40) IU/L ALT 20 (8-54) IU/L Alkaline Phosphatase 83 (40-150) Total Protein 8.1 H (6.0-8.0) g/dL Albumin 4.0 (3.5-5.0) g/dL Globulin 4.1 H (2.0-3.5) g/dL Albumin/Globulin Ratio 1.0 L (1.3-2.8) Prolactin 36 H (0-27) ng/mL HCG, Qual NEGATIVE (NEG) Urine Color Urine Appearance Urine pH (5.0-8.0) Ur Specific [place] (1.001-1.035) Urine Protein (NEGATIVE) mg/dL Urine Glucose (UA) (NEGATIVE) mg/dL Urine Ketones (NEGATIVE) mg/dL Urine Occult Blood (NEGATIVE) Urine Nitrite (NEGATIVE) Urine Bilirubin (NEGATIVE) Urine Urobilinogen (<2.0) EU/dL Ur Leukocyte Esterase (NEGATIVE) Urine RBC (0-2/HPF) Urine WBC (0-5/HPF) Ur Epithelial Cells (NONE-FEW) Urine Bacteria (NEGATIVE) Urine Opiates Screen (NEGATIVE) Ur Oxycodone Screen (NEGATIVE) Urine Methadone Screen (NEGATIVE) Ur Barbiturates Screen (NEGATIVE) Ur Phencyclidine Scrn (NEGATIVE) Ur Amphetamine Screen (NEGATIVE) U Methamphetamines Scrn (NEGATIVE) U Benzodiazepines Scrn (NEGATIVE) U Cocaine Metab Screen (NEGATIVE) U Marijuana (THC) Screen (NEGATIVE) Meds: Medications Generic Name Dose Route Start Last Admin Trade Name Fretroy PRN Reason Stop Dose Admin Sodium Chloride 10 ml 09/11/17 22:24 Saline Flush FLUSH ASDIRECTED PRN Keep Vein Open Sodium Chloride 2.5 ml 09/11/17 22:24 Saline Flush FLUSH ASDIRECTED PRN Keep Vein Open Discontinued Medications Generic Name Dose Route Start Last Admin Trade Name Freq PRN Reason Stop Dose Admin Ondansetron HCl 4 mg 09/11/17 23:38 Zofran IVPUSH 09/11/17 23:39 ONETIME ONE Departure - Departure Time of Disposition: 23:42 Disposition: Refer to Observation Condition: Good Clinical Impression: New onset seizure, History of pulmonary embolus (PE) - Discharge Information Referrals: PCP,None [Primary Care Provider] - Forms: ED Department Discharge - My Orders Last 24 Hours: My Active Orders 09/11/17 22:24 Cardiac Monitoring [RC] . DIRECTED EKG Documentation Completion [RC] STAT Oxygen Therapy, ED [RC] ASDIRECTED Sodium Chloride 0.9% [Saline Flush] 10 ml FLUSH ASDIRECTED PRN Sodium Chloride 0.9% [Saline Flush] 2.5 ml FLUSH ASDIRECTED PRN Saline Lock Insert [OM.PC] Stat 09/11/17 22:25 Chest 1V Frontal [CR] Stat Head wo Cont [CT] Stat - Assessment/Plan Last 24 Hours: My Active Orders 09/11/17 22:24 Cardiac Monitoring [RC] . DIRECTED EKG Documentation Completion [RC] STAT Oxygen Therapy, ED [RC] ASDIRECTED Sodium Chloride 0.9% [Saline Flush] 10 ml FLUSH ASDIRECTED PRN Sodium Chloride 0.9% [Saline Flush] 2.5 ml FLUSH ASDIRECTED PRN Saline Lock Insert [OM.PC] Stat 09/11/17 22:25 Chest 1V Frontal [CR] Stat Head wo Cont [CT] Stat
[2017-09-11] MEDS ORDERED: Ondansetron 4 MG/2 ML SDV IVPUSH ONE (23:38)
[2017-09-12] MEDS ORDERED: levETIRAcetam 500 MG Tab PO ONE (00:58)
[2017-09-12] MEDS ORDERED: FLU Vacc QS 2017-18 (36mos UP)/PF 60 MCG/0.5 ML Syringe IM SCH (01:00)
[2017-09-12] MEDS ORDERED: LORazepam 2 MG/ML SDV IVPUSH PRN (01:01)
[2017-09-12] MEDS: Morphine 2 MG/ML Syringe IVPUSH PRN ×3 (02:13→12:52)
[2017-09-12 08:02] LABS: CHLORIDE,CL 105 mmol/L (98-110); SODIUM,NA 138 mmol/L (136-146)
[2017-09-12 09:41] VITALS: BP 126/83
--- NOTE | 2017-09-12 10:18 | PCM.HP ---
H&P History of Present Illness - General Date of Service: 09/12/17 Admit Problem/Dx: Admission Diagnosis/Problem Admission Diagnosis/Problem Seizure Source of Information: Patient History Limitations: Reports: No Limitations - History of Present Illness Initial Comments - Free Text/Narative: This 32 year old female with pmh of PE on chronic anticoagulation, HTN, obesity presented to the ED via EMS with seizure activity witnessed by her brother and mother. What she last remembers was she was sitting on the couch watching TV and then waking up in the ambulance. From reports from family, her mother started hearing weird noises from the living room and called out to her with no response they headed to the living room and noted her to be having a generalized seizure, arms and legs were stiff, she had blue lips. This last approimately 1-2 minutes and she then woke up, initially groggy mumbling then she become more alert and was near normal when the ambulance arrived. She reports no recent head trauma, no fevers or suspected infections. No alcohol intake and no recreational drug use. She does not smoke or use tobacco products. She reports she has had very little sleep the last couple days with family around, maybe 4 hours total in the last day and a half. She reports never having seizure activity in the past, a half brother reported he had a seizure 6 months ago, but never sought medical treatment/workup for this. She recently started the Keto diet to help with losing weight, she knows to monitor amount of leafy greens she is taking in due to Warfarin. In the ED leukocytosis was noted 14,090. INR 2.02, Prolactin 36, HCG negative. Toxicology screen negative. Head CT negative and CXR negative. UA negative as well. Keppra 1,000 mg PO given in ED. She was admitted for observation on telemetry for new onset seizure. Headache Pain Score (Numeric/FACES): 8 Right Arm Pain Score (Numeric/FACES): 8 - Related Data Allergies/Adverse Reactions: Allergies Allergy/AdvReac Type Severity Reaction Status Date / Time No Known Allergies Allergy Verified 09/11/17 22:11 Home Medications: Home Meds Hydrochlorothiazide 25 mg PO DAILY 01/25/17 [History] Warfarin [Coumadin] 10 mg PO DAILY 01/31/17 [History] Acetaminophen/HYDROcodone [Olympia 325-10 MG] 1 tab PO Q4H PRN #20 tablet [Rx] Losartan [Cozaar] 50 mg PO DAILY 09/12/17 [History] metFORMIN [Glucophage] 500 mg PO DAILY 09/12/17 [History] Past Medical History HEENT History: Reports: Impaired Vision Other HEENT History: uses eyeglasses Cardiovascular History: Reports: Blood Clots/VTE/DVT, Hypertension. Denies: Heart Failure, MA Respiratory History: Reports: PE Gastrointestinal History: Reports: None. Denies: GI Bleed Genitourinary History: Reports: None. Denies: Acute Renal Failure, Chronic Renal Insuffiency COPYMAN History: Reports: Other (See Below) Other OB/BYN History: on control pills Musculoskeletal History: Reports: None Neurological History: Reports: None Psychiatric History: Reports: Anxiety Endocrine/Metabolic History: Reports: Diabetes, Type II (borderline, metformin daily), Obesity/BMI 30+ Hematologic History: Reports: None Immunologic History: Reports: None Oncologic (Cancer) History: Reports: None Dermatologic History: Reports: None - Infectious Disease History Infectious Disease History: Reports: Chicken Pox - Past Surgical History Head Surgeries/Procedures: Reports: None HEENT Surgical History: Reports: None Cardiovascular Surgical History: Reports: None Respiratory Surgical History: Reports: None GI Surgical History: Reports: Appendectomy Endocrine Surgical History: Reports: None Neurological Surgical History: Reports: None Musculoskeletal Surgical History: Reports: Other (See Below) Other Musculoskeletal Surgeries/Procedures:: meniscus repair left knee Oncologic Surgical History: Reports: None Dermatological Surgical History: Reports: None Social & Family History - Family History Respiratory: Reports: PE (father) Neurological: Reports: Seizure (half brother who never was worked up for it, otherwise no known family history) - Tobacco Use Smoking Status *Q: Former Smoker Used Tobacco, but Quit: No Month Tobacco Last Used: June 2016 Second Hand Smoke Exposure: No - Caffeine Use Caffeine Use: Reports: Coffee Caffeine Use Comment: 2 cups a day - Alcohol Use Days Per Week of Alcohol Use: 1 Number of Drinks Per Day: 1 Total Drinks Per Week: 1 Alcohol Use Frequency: Rarely, Socially - Recreational Drug Use Recreational Drug Use: No - Living Situation & Occupation Living situation: Reports: Single 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 Denies: Fever, Chills HEENT: Reports: No Symptoms. Denies: Headaches, Hearing Changes, Sinus Congestion, Sore Throat, Visual Changes Pulmonary: Reports: No Symptoms. Denies: Shortness of Breath, Wheezing, Cough, Sputum Cardiovascular: Reports: No Symptoms. Denies: Chest Pain, Palpitations, Edema Gastrointestinal: Reports: No Symptoms. Denies: Abdominal Pain, Black Stool, Bloody Stool, Nausea, Vomiting Musculoskeletal: Reports: Neck Pain (tension not really pain. ), Shoulder Pain ( tension, not really pain), Arm Pain (mid R arm bruising unclear of how this happened. very sore. ). Denies: Leg Pain Psychiatric: Reports: No Symptoms. Denies: Confusion Neurological: Reports: Seizure (last evening.). Denies: Dizziness, Numbness, Paresthesia, Syncope, Trouble Speaking Exam - Exam Exam: See Below - Vital Signs Vital Signs: Last Vital Signs Temp 97.9 F 09/12/17 08:00 Pulse 85 09/12/17 08:00 Resp 16 09/12/17 08:00 BP 126/83 09/12/17 08:00 Pulse Ox 97 09/12/17 08:00 Weight: 186.563 kg - Exam General: Alert, Oriented, Cooperative HEENT: Conjunctiva Clear, Mucosa Moist & Poole, Posterior Pharynx Clear, Pupils Reactive, Other (no tongue abrasions or lacerations from seizure) Neck: Supple, Trachea Midline, 2 Lungs: Clear to Auscultation, Normal Respiratory Effort Cardiovascular: Regular Rate, Regular Rhythm, Normal S1, Normal S2. No: Systolic Murmur GI/Abdominal Exam: Normal Bowel Sounds, Soft, Non-Tender, No Organomegaly, No Distention, No Abnormal Bruit, No Mass, Pelvis Stable, Other (obese abdomen) Extremities: Normal Inspection, Normal Range of Motion, Non-Tender, No Pedal Edema, Normal Capillary Refill Skin: Ecchymosis (bruising noted mid humerus, some pain and swelling noted. Patient reports "muscle pain". ) Neurological: Cranial Nerves Intact, Reflexes Equal Bilateral, Strength Equal Bilateral, Normal Gait, Normal Speech Neuro Extensive - Mental Status: Alert, Oriented x3, Normal Mood/Affect, Normal Cognition, Memory Intact Neuro Extensive - Motor, Sensory, Reflexes: CN II-XII Intact, Normal Gait, Normal Reflexes Psychiatric: Alert, Normal Affect, Normal Mood - Patient Data Lab Results Last 24 hrs: Laboratory Results - last 24 hr 09/12/17 09/12/17 09/12/17 Range/Units 06:28 06:28 08:28 WBC 13.62 H (4.0-11.0) K/uL RBC 4.63 (4.30-5.90) M/uL Hgb 13.0 (12.0-16.0) g/dL Hct 38.6 (36.0-46.0) % MCV 83.4 (80.0-98.0) fL MCH 28.1 (27.0-32.0) pg MCHC 33.7 (31.0-37.0) g/dL RDW Std Deviation 46.7 (28.0-62.0) fl RDW Coeff of Nicole 15 (11.0-15.0) % Plt Count 269 (150-400) K/uL MPV 9.60 (7.40-12.00) fL Nucleated RBC % 0.0 /100WBC Nucleated RBCs # 0 K/uL Sodium 138 (136-146) mmol/L Potassium 3.3 L (3.5-5.1) mmol/L Chloride 105 (98-110) mmol/L Carbon Dioxide 24 (21-31) mmol/L BUN 15 (6.0-23.0) mg/dL Creatinine 0.9 (0.6-1.5) mg/dL Est Cr Clr Drug Dosing 125.23 mL/min Estimated GFR (MDRD) > 60.0 ml/min Glucose 107 (60-110) mg/dL Calcium 8.6 L (8.8-10.8) mg/dL Magnesium 1.5 (1.5-2.3) mEq/L TSH 3rd Generation 1.86 (0.47-5.0) uIU/mL Result Diagrams: 09/12/17 06:28 09/12/17 06:28 *Q Meaningful Use (ADM) - VTE *Q VTE Criteria *Q: - Stroke *Q Stroke Criteria *Q: - AMI *Q AMI Criteria *Q: - Problem List (1) New onset seizure SNOMED Code(s): 69735412 ICD Code: R56.9 - UNSPECIFIED CONVULSIONS Status: Acute Current Visit: Yes (2) Right arm pain SNOMED Code(s): 440880075 ICD Code: M79.601 - PAIN IN RIGHT ARM Status: Acute Current Visit: Yes (3) History of pulmonary embolus (PE) SNOMED Code(s): 736628405 ICD Code: Z86.711 - PERSONAL HISTORY OF PULMONARY EMBOLISM Status: Chronic Current Visit: Yes (4) HTN (hypertension) SNOMED Code(s): 24541314 ICD Code: I10 - ESSENTIAL (PRIMARY) HYPERTENSION Status: Chronic Current Visit: No Qualifiers: Hypertension type: essential hypertension Qualified Code(s): I10 - Essential (primary) hypertension (5) Obesity SNOMED Code(s): 976818224 ICD Code: E66.9 - OBESITY, UNSPECIFIED Status: Chronic Current Visit: Yes Qualifiers: Obesity type: due to excess calories Body mass index: BMI 45.0-49.9 Problem List Initiated/Reviewed/Updated: Yes Orders Last 24hrs: Active Orders 24 hr Category Date Time Status Patient Status [ADT] Routine ADT 09/12/17 00:53 Active Antiembolic Devices [RC] PER UNIT ROUTINE Care 09/12/17 00:58 Active Neuro Check [RC] Q2H Care 09/12/17 01:00 Active Oxygen Therapy [RC] PRN Care 09/12/17 00:53 Active Pulse Oximetry [RC] PRN Care 09/12/17 00:54 Active Telemetry Monitoring [Cardiac Monitoring] [RC] Q8H Care 09/12/17 00:28 Active Up With Assistance [RC] ASDIRECTED Care 09/12/17 00:53 Active Vital Signs [RC] Q4H Care 09/12/17 00:53 Active 2 Gram Sodium Diet [DIET] Diet 09/12/17 Breakfast Active FLU Vacc [id number] 36mos UP/PF [Fluarix Quad [id number]] Med 09/12/17 01:00 Active 60 mcg IM .ONCE Hydrochlorothiazide Med 09/13/17 09:00 Active 25 mg PO DAILY LORazepam [Ativan] Med 09/12/17 01:01 Active 2 mg IVPUSH Q4H PRN Losartan [Cozaar] Med 09/13/17 09:00 Active 50 mg PO DAILY Morphine Med 09/12/17 01:23 Active 2 mg IVPUSH Q2H PRN Warfarin [Coumadin] Med 09/12/17 14:00 Active 10 mg PO DAILY@1400 levETIRAcetam [Keppra] Med 09/12/17 21:00 Active 500 mg PO BID Seizure Precautions [OM.PC] Routine Oth 09/12/17 01:01 Ordered Sequential Compression Device [OM.PC] Per Unit Routine Oth 09/12/17 00:57 Ordered Resuscitation Status Routine Resus Stat 09/12/17 00:53 Ordered Medication Orders Hydrochlorothiazide (Hydrochlorothiazide) 25 mg PO DAILY [facility] Influenza Virus Vaccine (Fluarix Quad 9821-5734) 60 mcg IM .ONCE [facility] Levetiracetam (Keppra) 500 mg PO BID [facility] Lorazepam (Ativan) 2 mg IVPUSH Q4H PRN PRN Reason: Seizures Losartan Potassium (Cozaar) 50 mg PO DAILY [facility] Morphine Sulfate (Morphine) 2 mg IVPUSH Q2H PRN PRN Reason: Pain Last Admin: 09/12/17 07:39 Dose: 2 mg Admin: 09/12/17 02:13 Dose: 2 mg Sodium Chloride (Saline Flush) 10 ml FLUSH ASDIRECTED PRN PRN Reason: Keep Vein Open Last Admin: 09/11/17 23:49 Dose: 10 ml Sodium Chloride (Saline Flush) 2.5 ml FLUSH ASDIRECTED PRN PRN Reason: Keep Vein Open Last Admin: 09/11/17 23:50 Dose: 2.5 ml Warfarin Sodium (Coumadin) 10 mg PO DAILY@1400 [facility] Assessment/Plan Comment:: This 32 year old female admitted for new onset seizure ADMISSION/DISCHARGE PLAN 1. New onset seizure: Labwork WNL. No further seizures. I spoke with Dr. rod regarding this patient and she requested outpatient MRI and sleep deprived EEG. She recommended to hold off on starting Keppra. Telemetry shows no arrhythmia. SR 80-100s. She will follow up on test results and see patient as an outpatient. Patient is alert and oriented now and comfortable with discharge this morning. Brother at bedside to hear instructions and seizure precautions to follow at home. She was explained the [place] law, that she is unable to drive for 6 months. She will be arranged with outpatient MRI and sleep deprived EEG this week. She will also follow up with PCP. She understands not continuing Keppra. 2. R upper arm pain: Injury likely occured during seizure. muscle soreness as patient describes, some bruisnig noted, no taughtness ,but scant swelling. She is able to move extremity/fingers but has some pain in her shoulder upon movement. ICE is helping. She was encouraged to monitor this for worsening hematoma, especially due to anticoagulation. She declines wanting xray, " I don' t think is a bone issue, is muscle, Ill be ok." Brother at bedside who also agrees. He remembers trying to lift her and give her the heimlich because he thought she was choking. She will be given Olympia 10/325 mg 1 tab every 4-6 hrs PRN pain #20 no refills. She is unable to take NSAIDs due to anticoagulation. She was also encouraged to elevated and ice PRN. She will follow with PCP as well. 3. Hx PE: Continue Warfarin. INR therapeutic' 4. HTN: stable, Continue HCTZ/Losartan Return to Clinic or ED if concerns should arise. Brother at bedside who will be at home with her as well and all questions and concerns answered.
[2017-09-12] MEDS ORDERED: Acetaminophen/HYDROcodone 325-10 MG Tab PO PRN (10:37)
[2017-09-12] MEDS ORDERED: Warfarin 10 MG Tab PO SCH (14:00)
--- NOTE | 2017-09-12 17:33 | CR ---
EXAM DATE: 09/11/17 PATIENT'S AGE: 32 Patient: OSCAR MINOR Facility: [place], [place] Site . Site : 1985 Study: XRay Chest [id number]/26/2017 11:30:11 PM Ordering Physician: Colette Aragon Final Report: INDICATION: pain/sob TECHNIQUE: Chest 1 view. COMPARISON: None. FINDINGS: Cardiovascular and mediastinum: Heart size and vasculature are normal in caliber and appearance. Mediastinum is within normal limits. Lungs and pleural space: Lungs are clear. No sign of infiltrate or mass. No sign of pleural effusion. No pneumothorax. Bones and soft tissues: No significant findings. IMPRESSION: Unremarkable chest. Dictated by: Jeffrey Sky MD @ 09/11/2017 23:55:12 (Electronic Signature) Report Signed by Proxy. [facility]Alfonso
--- NOTE | 2017-09-12 17:34 | CT ---
EXAM DATE: 09/11/17 PATIENT'S AGE: 32 Patient: OSCAR MINOR Facility: [place], [place] Site . Site : 1985 Study: CT Head [id number]/26/2017 11:32:53 PM Ordering Physician: Colette Aragon Final Report: INDICATION: Seizure TECHNIQUE: CT head without contrast. COMPARISON: None FINDINGS: CSF spaces: Within normal limits for age. Brain parenchyma: The nuñez-white differentiation is normal. No sign of mass, hemorrhage, or midline shift. Skull base and calvarium: The visualized paranasal sinuses and mastoid air cells demonstrate no acute or significant findings. The visualized orbits are grossly unremarkable. No skull fractures. IMPRESSION: Unremarkable noncontrast head CT. Dictated by Jeffrey Sky MD @ 09/11/2017 11:58:31 PM Dictated by: Jeffrey Sky MD @ 09/11/2017 23:58:37 (Electronic Signature) Report Signed by Proxy. [facility]
[2017-09-12] MEDS ORDERED: levETIRAcetam 500 MG Tab PO SCH (21:00)
[2017-09-13] MEDS ORDERED: Losartan 50 MG Tab PO SCH (09:00)
[2017-09-13] MEDS ORDERED: Hydrochlorothiazide 25 MG Tab PO SCH (09:00)
== END 2017-09-12 13:20 | disposition home or self-care (01) ==
LOC: MW.ED 21:48 → MW.MS 23:43
PROVIDERS: ADMIT Internal Medicine; ATTEND Internal Medicine
DX: R56.9 Unspecified convulsions (principal); M79.601 Pain in right arm; I10 Essential (primary) hypertension; E11.9 Type 2 diabetes mellitus without complications; F41.9 Anxiety disorder, unspecified; E66.09 Other obesity due to excess calories; Z68.42 Body mass index [BMI] 45.0-49.9, adult; Z86.711 Personal history of pulmonary embolism; Z86.718 Personal history of other venous thrombosis and embolism; Z79.01 Long term (current) use of anticoagulants; Z79.84 Long term (current) use of oral hypoglycemic drugs; Z79.3 Long term (current) use of hormonal contraceptives; Z79.899 Other long term (current) drug therapy; Z98.890 Other specified postprocedural states; Z87.891 Personal history of nicotine dependence
CPT/HCPCS: 36415; 70450; 71010; 80048; 80053; 80305; 81001; 83735; 84146; 84443; 84703; 85025; 85027; 85610; 93005; 96374; 96375; 96376; 99285; A9270; G0378; J2270; J2405; 99283

== ENCOUNTER 2020-10-24 18:40 | Emergency (ER) | payer BC ==
[2020-10-24] MEDS ORDERED: Codeine/Promethazine 10-6.25 MG/5 ML Syrup 5 ML UD Cup PO STA (19:10)
[2020-10-24] MEDS ORDERED: Sodium Chloride 0.9% 1,000 ML IV ONE ×2 (19:10→20:45)
[2020-10-24 19:44] LABS: CARBON DIOXIDE,CO2 26.9 mmol/L (21.0-32.0); POTASSIUM,K 3.5 mmol/L (3.5-5.1)
--- NOTE | 2020-10-24 19:46 | EDM.PDOC ---
ED HPI GENERAL MEDICAL PROBLEM - General Chief Complaint: ENT Problem Stated Complaint: STREP, ABCESS TOOTH, UNABLE TO EAT OR DRINK Time Seen by Provider: 10/24/20 18:41 Source of Information: Reports: Patient History Limitations: Reports: No Limitations - History of Present Illness INITIAL COMMENTS - FREE TEXT/NARRATIVE: HISTORY AND PHYSICAL: History of present illness: Patient is a 35-year-old female who presents to the emergency room with complaints of throat pain, fever, difficulty/pain with swallowing and eating. She was seen at the clinic yesterday and was told she had strep throat and a dental abscess. She was started on Augmentin yesterday but does not feel any improvement. Her pain is "so bad I feel nauseated". She is able to swallow although this does cause increased pain. She states she was also tested for COVID-19, negative. Patient denies any chills, headache, change in vision, syncope or near syncope. Denies any chest pain, back pain, shortness of breath or cough. Denies any abdominal pain, vomiting, diarrhea, constipation or dysuria. Review of systems: As per history of present illness and below otherwise all systems reviewed and negative. Past medical history: As per history of present illness and as reviewed below otherwise noncontributory. Surgical history: As per history of present illness and as reviewed below otherwise nonco ntributory. Social history: See social history for further information Family history: As per history of present illness and as reviewed below otherwise noncontributory. Physical exam: General: Well developed and well nourished. Alert and orientated x 3. Nontoxic in appearance and in no acute distress. Vital signs are stable and have been reviewed by me. Nursing notes were reviewed. HEENT: Atraumatic, normocephalic, pupils equal and reactive bilaterally, negative for conjunctival pallor or scleral icterus, mucous membranes moist, TMs normal bilaterally, throat is erythematous with +1 fullness bilaterally, she does have exudate to the left side of throat and erythema to her left posterior gumline, neck supple, nontender, trachea midline. No drooling or trismus noted. No meningeal signs. No hot potato voice noted. Lungs: Clear to auscultation, breath sounds equal bilaterally. Normal work of breathing, no accessory muscles used. Heart: S1S2, regular rate and rhythm without overt murmur Abdomen: Soft, nondistended, nontender. Negative for masses or hepatosplenomegaly. Negative for costovertebral tenderness. Skin: Intact, warm, dry. No lesions or rashes noted. Hematologic: No petechiae or purpra. Mucosa appropriate color and normal nail bed color and refill. Extremities: Atraumatic, moves all extremities per self without difficulty or deficits. Neurovascular unremarkable. Neuro: Awake, alert, oriented. Cranial nerves II through XII unremarkable. Cerebellum unremarkable. Motor and sensory unremarkable throughout. Exam nonfocal. Psychiatric: Mood and affect are appropriate. Normal thought process. Answering questions appropriately. Notes: Patient states she did not get much relief with the Phenergan with codeine. We will give her additional medication. CT shows mild tonsillar enlargement which can be seen in tonsillitis without evidence of peritonsillar abscess. Submandibular and jugular lymphadenopathy, likely reactive. Lab work is unremarkable. She does feel improved after the IV fluids. Patient has only had 2 doses of her antibiotic, will have her continue and monitor his symptoms closely. She states she does feel better after the pain medications and would like to be discharged home I have talked with the patient about today's findings, in addition to providing specific details for plan of care. Reassessment at the time of disposition demonstrates that the patient is in no acute distress. The patient is stable for discharge, counseling was provided and we discussed in great detail signs and symptoms that would prompt them to return to the Emergency Department. Medication, follow up and supportive care measures were reviewed and discussed. Voices understanding and is agreeable to plan of care. Denies any further questions or concerns at this time. Diagnostics: CBC, CMP, HCG, CT soft tissue neck Therapeutics: IV fluids, Phenergan w/ codeine Prescription: Miracle mouthwash, Percocet Impression: Tonsillitis Plan: 1. Today your lab work and CT are within normal limits. Continue taking your antibiotic as prescribed.. 2. Use the miracle mouthwash as directed. You can alternate Tylenol and ibuprofen as needed. Percocet for moderate to sever pain. This medication may cause drowsiness, so do not take while driving or needing to be functioning outside the house. 3. We encourage you to follow up with your primary care provider and/or recommended specialist in the next few days for re-evaluation and further care/management. If your symptoms should worsen, new symptoms develop or any of the signs and symptoms we discussed should arise please return to the emergency room or call 911 (if needed). Definitive disposition and diagnosis as appropriate pending reevaluation and review of above. throat Pain Score (Numeric/FACES): 8 - Related Data Allergies Allergy/AdvReac Type Severity Reaction Status Date / Time No Known Allergies Allergy Verified 10/24/20 18:58 Home Meds: Home Meds Amoxicillin/Potassium Clav [Amox Tr-K Clv 875-125 mg Tab] 1 each PO BID 10/24/20 [History] Labetalol HCl [Labetalol] 100 mg PO DAILY 10/24/20 [History] lamoTRIgine [Lamotrigine] 150 mg PO BID 10/24/20 [History] metFORMIN [Glucophage] 1,000 mg PO WITHDINNER 10/24/20 [History] oxyCODONE HCl/Acetaminophen [Percocet 5-325 mg Tablet] 1 - 2 tab PO Q6HR PRN #20 tablet 10/24/20 [Rx] Past Medical History HEENT History: Reports: Impaired Vision Other HEENT History: uses eyeglasses Cardiovascular History: Reports: Blood Clots/VTE/DVT, Hypertension Respiratory History: Reports: PE Gastrointestinal History: Reports: None Genitourinary History: Reports: None [employer] History: Reports: None Other [employer] History: on control pills Musculoskeletal History: Reports: None Neurological History: Reports: None Psychiatric History: Reports: Anxiety Endocrine/Metabolic History: Reports: Diabetes, Type II, Obesity/BMI 30+ Insulin Pump Model and Exhaust Tender: None Hematologic History: Reports: None Immunologic History: Reports: None Oncologic (Cancer) History: Reports: None Dermatologic History: Reports: None - Infectious Disease History Infectious Disease History: Reports: Chicken Pox - Past Surgical History Head Surgeries/Procedures: Reports: None HEENT Surgical History: Reports: None Cardiovascular Surgical History: Reports: None Respiratory Surgical History: Reports: None GI Surgical History: Reports: Appendectomy Endocrine Surgical History: Reports: None Neurological Surgical History: Reports: None Musculoskeletal Surgical History: Reports: Other (See Below) Other Musculoskeletal Surgeries/Procedures:: meniscus repair left knee Oncologic Surgical History: Reports: None Dermatological Surgical History: Reports: None Social & Family History - Family History Family Medical History: No Pertinent Family History Respiratory: Reports: PE Neurological: Reports: Seizure - Tobacco Use Tobacco Use Status *Q: Former Tobacco User Used Tobacco, but Quit: No - Caffeine Use Caffeine Use: Reports: Coffee Caffeine Use Comment: 2 cups a day - Recreational Drug Use Recreational Drug Use: No - Living Situation & Occupation Living situation: Reports: Single 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 ED EXAM, ENT - Physical Exam Exam: See Below (See dictation) Course - Vital Signs Last Recorded V/S: Last Vital Signs Temp 97.2 F 10/24/20 19:01 Pulse 107 H 10/24/20 19:01 Resp 18 10/24/20 19:01 BP 141/95 H 10/24/20 19:01 Pulse Ox 97 10/24/20 19:01 - Orders/Labs/Meds Orders: Active Orders 24 hr Category Date Time Status Sodium Chloride 0.9% [Normal Saline] 1,000 ml Med 10/24/20 20:45 Active IV STAT Medication Orders Sodium Chloride (Normal Saline) 1,000 mls @ 999 mls/hr IV STAT ONE Stop: 10/24/20 21:45 Last Admin: 10/24/20 21:06 Dose: 999 mls/hr Documented by: WYATT Labs: Laboratory Tests 10/24/20 10/24/20 10/24/20 Range/Units 19:18 19:18 19:28 WBC 10.60 (4.0-11.0) K/uL RBC 5.11 (4.30-5.90) M/uL Hgb 14.4 (12.0-16.0) g/dL Hct 43.5 (36.0-46.0) % MCV 85.1 (80.0-98.0) fL MCH 28.2 (27.0-32.0) pg MCHC 33.1 (31.0-37.0) g/dL RDW Std Deviation 44.9 (28.0-62.0) fl RDW Coeff of Nicole 15 (11.0-15.0) % Plt Count 276 (150-400) K/uL MPV 9.60 (7.40-12.00) fL Neut % (Auto) 69.3 (48.0-80.0) % Lymph % (Auto) 16.3 (16.0-40.0) % [place] % (Auto) 14.1 (0.0-15.0) % Eos % (Auto) 0.0 (0.0-7.0) % Baso % (Auto) 0.3 (0.0-1.5) % Neut # (Auto) 7.4 H (1.4-5.7) K/uL Lymph # (Auto) 1.7 (0.6-2.4) K/uL [place] # (Auto) 1.5 H (0.0-0.8) K/uL Eos # (Auto) 0.0 (0.0-0.7) K/uL Baso # (Auto) 0.0 (0.0-0.1) K/uL Nucleated RBC % 0.0 /100WBC Nucleated RBCs # 0 K/uL Sodium 133 L (136-145) mmol/L Potassium 3.5 (3.5-5.1) mmol/L Chloride 95 L (98-107) mmol/L Carbon Dioxide 26.9 (21.0-32.0) mmol/L BUN 13 (7.0-18.0) mg/dL Creatinine 1.1 H (0.6-1.0) mg/dL Est Cr Clr Drug Dosing 99.79 mL/min Estimated GFR (MDRD) 57.2 ml/min Glucose 106 (74-106) mg/dL Calcium 9.0 (8.5-10.1) mg/dL Total Bilirubin 0.5 (0.2-1.0) mg/dL AST 53 H (15-37) IU/L ALT 38 (14-63) IU/L Alkaline Phosphatase 81 (46-116) U/L Total Protein 8.5 H (6.4-8.2) g/dL Albumin 3.7 (3.4-5.0) g/dL Globulin 4.8 H (2.6-4.0) g/dL Albumin/Globulin Ratio 0.8 L (0.9-1.6) Urine HCG, Qual NEGATIVE (NEGATIVE) Meds: Medications Generic Name Dose Route Start Last Admin Trade Name Freq PRN Reason Stop Dose Admin Sodium Chloride 1,000 mls @ 999 mls/hr 10/24/20 20:45 10/24/20 21:06 Normal Saline IV 10/24/20 21:45 999 mls/hr STAT ONE Administration Discontinued Medications Generic Name Dose Route Start Last Admin Trade Name Chris PRN Reason Stop Dose Admin Sodium Chloride 1,000 mls @ 999 mls/hr 10/24/20 19:10 10/24/20 19:19 Normal Saline IV 10/24/20 20:10 999 mls/hr STAT ONE Administration Iopamidol 80 ml 10/24/20 20:07 10/24/20 20:09 Isovue-370 (76%) IVPUSH 10/24/20 20:08 80 ml ONETIME ONE Administration Lidocaine HCl 20 ml 10/24/20 20:37 10/24/20 21:12 Xylocaine 2% Viscous PO 10/24/20 20:38 Not Given ONETIME ONE Lidocaine HCl Confirm 10/24/20 21:00 10/24/20 21:09 Xylocaine 2% Viscous Administered 10/24/20 21:01 Not Given Dose 15 ml .ROUTE .STK-MED ONE Lidocaine HCl 15 ml 10/24/20 21:09 10/24/20 21:10 Xylocaine 2% Viscous PO 10/24/20 21:10 15 ml ONETIME ONE Administration Morphine Sulfate 4 mg 10/24/20 20:37 10/24/20 21:07 Morphine IVPUSH 10/24/20 20:38 4 mg ONETIME ONE Administration Promethazine HCl/Codeine 10 ml 10/24/20 19:10 10/24/20 19:19 Phenergan With Codeine PO 10/24/20 19:11 10 ml NOW STA Administration Departure - Departure Time of Disposition: 21:40 Disposition: Home, Self-Care 01 Clinical Impression: Tonsillitis - Discharge Information Prescriptions: oxyCODONE HCl/Acetaminophen [Percocet 5-325 mg Tablet] 1 - 2 tab PO Q6HR PRN #20 tablet PRN Reason: Pain Instructions: Tonsillitis, [id number] Referrals: [facility] [Primary Care Provider] - Forms: ED Department Discharge Additional Instructions: The following information is given to patients seen in the emergency department who are being discharged to home. This information is to outline your options for follow-up care. We provide all patients seen in our emergency department with a follow-up referral. The need for follow-up, as well as the timing and circumstances, are variable depending upon the specifics of your emergency department visit. If you don't have a primary care physician on staff, we will provide you with a referral. We always advise you to contact your personal physician following an emergency department visit to inform them of the circumstance of the visit and for follow-up with them and/or the need for any referrals to a consulting specialist. The emergency department will also refer you to a specialist when appropriate. This referral assures that you have the opportunity for follow-up care with a specialist. All of these measure are taken in an effort to provide you with optimal care, which includes your follow-up. Under all circumstances we always encourage you to contact your private physician who remains a resource for coordinating your care. When calling for follow-up care, please make the office aware that this follow-up is from your recent emergency room visit. If for any reason you are refused follow-up, please contact the [facility] Emergency Department at and asked to speak to the emergency department charge nurse. [facility] [address] [place] [id number] [place] [address] Thank you for choosing the [facility] emergency department in [place] for your medical needs today. It was a pleasure caring for you. Today you were seen in the emergency department for increased throat pain. 1. Today your lab work and CT are within normal limits. Continue taking your antibiotic as prescribed. 2. Use the miracle mouthwash as directed. You can alternate Tylenol and ibuprofen as needed. Percocet for moderate to sever pain. This medication may cause drowsiness, so do not take while driving or needing to be functioning outside the house. 3. We encourage you to follow up with your primary care provider and/or recommended specialist in the next few days for re-evaluation and further care/management. If your symptoms should worsen, new symptoms develop or any of the signs and symptoms we discussed should arise please return to the emergency room or call 911 (if needed). Sepsis Event Note (ED) - Evaluation Sepsis Screening Result: No Definite Risk - Focused Exam Vital Signs: Vital Signs Temp Pulse Resp BP Pulse Ox 10/24/20 19:01 97.2 F 107 H 18 141/95 H 97 - My Orders Last 24 Hours: My Active Orders 10/24/20 20:45 Sodium Chloride 0.9% [Normal Saline] 1,000 ml IV STAT - Assessment/Plan Last 24 Hours: My Active Orders 10/24/20 20:45 Sodium Chloride 0.9% [Normal Saline] 1,000 ml IV STAT
[2020-10-24] MEDS ORDERED: Iopamidol 755 Mg/ML 100 ML Bottle IVPUSH ONE (20:07)
--- NOTE | 2020-10-24 20:33 | CT ---
INDICATION: Pain, possible peritonsillar abscess TECHNIQUE: CT soft tissue of the neck was acquired with 80 cc Isovue 370 intravenous contrast. COMPARISON: None FINDINGS: Included portions of the brain are unremarkable. Orbits are unremarkable. Paranasal sinuses are clear. Parotid and submandibular glands are unremarkable. The tonsils are mildly enlarged although without peritonsillar collection. Epiglottis is unremarkable. Submandibular adenopathy with submandibular lymph nodes measure up to 12 millimeters in short axis. Jugular adenopathy with lymph nodes measuring up to 15 millimeters in short axis. Vocal cords and thyroid gland unremarkable. IMPRESSION: 1. Mild tonsillar enlargement which can be seen in tonsillitis without evidence of peritonsillar abscess. 2. Submandibular and jugular lymphadenopathy, likely reactive. Please note that all CT scans at this facility use dose modulation, iterative reconstruction, and/or weight-based dosing when appropriate to reduce radiation dose to as low as reasonably achievable. Dictated by Rafael Moya MD @ Oct 24 2020 8:22PM Signed by Dr. Rafael Moya @ Oct 24 2020 8:32PM
[2020-10-24] MEDS ORDERED: Lidocaine 2% Viscous Solution 100 ML Bottle PO ONE (20:37)
[2020-10-24] MEDS ORDERED: Morphine 4 MG/ML Syringe IVPUSH ONE (20:37)
[2020-10-24] MEDS ORDERED: Lidocaine 2% Viscous Solution 15 ML Cup ONE (21:00)
[2020-10-24] MEDS ORDERED: Lidocaine 2% Viscous Solution 15 ML Cup PO ONE (21:09)
[2020-10-24 22:28] VITALS: BP 135/85; PULSE 100
== END 2020-10-24 22:16 | disposition home or self-care (01) ==
LOC: MW.ED 18:40
DX: J03.90 Acute tonsillitis, unspecified (principal); I10 Essential (primary) hypertension; E11.9 Type 2 diabetes mellitus without complications; E66.9 Obesity, unspecified; Z68.42 Body mass index [BMI] 45.0-49.9, adult; Z79.84 Long term (current) use of oral hypoglycemic drugs; Z79.899 Other long term (current) drug therapy; Z87.891 Personal history of nicotine dependence
CPT/HCPCS: 36415; 70491; 80053; 81025; 85025; 96374; 99284; A9270; J2270; J7030; Q9967; 99283

== ENCOUNTER 2020-10-26 02:53 | Emergency (ER) | payer BC ==
[2020-10-26] MEDS ORDERED: Ketorolac 60 MG/2 ML SDV IM ONE (03:12)
[2020-10-26] MEDS ORDERED: traMADol 50 MG Tab PO ONE (03:12)
[2020-10-26] MEDS ORDERED: Morphine 4 MG/ML Syringe IM ONE (03:13)
[2020-10-26] MEDS ORDERED: Ondansetron 4 MG Tab.DIS PO ONE (03:13)
--- NOTE | 2020-10-26 03:21 | EDM.PDOC ---
ED HPI GENERAL MEDICAL PROBLEM - General Chief Complaint: ENT Problem Stated Complaint: MEDICATION NOT HELPING PAIN; HARD TIME BREATHING Time Seen by Provider: 10/26/20 03:05 - History of Present Illness INITIAL COMMENTS - FREE TEXT/NARRATIVE: HISTORY AND PHYSICAL: History of present illness: This is a 35-year-old female who presents to the ER today secondary to pain to her mouth, tongue, throat x2 days. Patient reports she was seen in the ED here yesterday and was diagnosed with a throat infection and was discharged home. Patient reports that she has been taking Percocet at home with some relief in her discomfort however this evening she felt like her throat was getting more swollen and she was having difficulty breathing and with having more pain that she can tolerate. Patient reports she has been able to tolerate some p.o. liquids without much difficulty. Patient currently is on some antibiotics that was prescribed to her for a throat infection. Patient's coronavirus test was negative on Tuesday. Patient reports tactile fevers, no nausea, vomiting, diarrhea, dysuria, frequency, urgency, chest pain, shortness of breath. Patient reports that she was tested for STDs recently because she is undergoing nicole tility treatment at this time. Patient denies any history of herpes simplex 1 or herpes simplex 2 in the past. Patient denies any other sick family members at home. Review of systems: As per history of present illness and below otherwise all systems reviewed and negative. Past medical history: As per history of present illness and as reviewed below otherwise noncontributory. Surgical history: As per history of present illness and as reviewed below otherwise noncontributory. Social history: No reported history of drug or alcohol abuse. Family history: As per history of present illness and as reviewed below otherwise noncontributory. Physical exam: Constitutional: Patient is oriented to person, place, and time. Appears well- developed and well-nourished. No distress. HEENT: Moist mucous membranes Head: Normocephalic and atraumatic Eyes: Right eye exhibits no discharge. Left eye exhibits no discharge. No scleral icterus Neck: Normal range of motion. No tracheal deviation present. Cardiovascular: Normal rate and regular rhythm. Pulmonary: Effort normal, no respiratory distress. Abdominal: No distention Musculoskeletal: Normal range of motion Neurologic: Alert and oriented to person, place and time. Skin: [place], warm and dry. Psychiatric: Normal mood and affect. Behavior is normal. Judgment and thought content normal. Nursing note and vital signs have been reviewed Patient's ER physical exam is significant for bilateral pharyngeal erythema. Patient's oropharynx is clear and her tonsils are just mildly edematous with mild erythema. Patient does have multiple oral ulcers on her tonsillar pillar as well as on the lateral aspect of her tongue on the left and right. Patient has extremely moist mucous membranes. Patient has no stridor. Patient is able speak in full sentences without difficulty. Patient is voice is not appear to be hoarse. Patient reports she has pain with talking secondary to discomfort from her tongue. Patient reports that she feels like her tongue is swollen although on exam I do not appreciate any evidence of angioedema of the tongue, uvula, soft palate, lips. Patient is having a hard time talking and appears mor e related to pain secondary to the multiple ulcerative lesions that are seen on her tongue. Patient has no stridor. Patient appears to be in no acute respiratory distress and does not appear to have any evidence of airway obstruction. This patient was seen and evaluated during the 2019 SARS-CoV-2 novel coronavirus pandemic period. Community viral transmission is ongoing at time of this encounter and the emergency department is operating under pandemic response procedures. Diagnostics: CT scan of her neck was reviewed from yesterday with no evidence of abscess identified. Therapeutics: Toradol 60 IM, Ultram 50 p.o., morphine 4 mg IM, Zofran ODT Assessment and plan: This is a 35-year-old female who presents ER today secondary to pain to her throat and tongue and mouth x2 days. Patient exam appears to be consistent with multiple ulcerative appearing lesions to her tongue and oral mucosa. This appears to be consistent with a viral stomatitis. Patient's airway is patent and there is no concern with airway compromise at this time. Patient appears to be well-hydrated with a significant amount of saliva underneath her tongue. There is no evidence of any angioedema appreciated on exam. I have discussed with the patient that this appears to be most consistent with a viral stomatitis and that she needs to continue taking the Percocet for her pain and I will prescribe Ultram as well as ibuprofen to assist her with pain as well. Patient is to follow-up with her doctor on Tuesday for reevaluation. Reassessment at the time of disposition demonstrates that the patient is in no acute distress. The patient has remained stable throughout the entire ED visit and is without objective evidence for acute process requiring urgent intervention or hospitalization. The patient is stable for discharge, counseling is provided as documented above, discussed symptomatic treatment and specific conditions for return. I have spoken with the patient/caregiver and discussed todays findings, in addition to providing specific details for the plan of care. Questions are answered and there is agreement with the plan. 7:26 PM October 26, 2020. Phone call follow-up made no answer. Message left on machine. Definitive disposition and diagnosis as appropriate pending reevaluation and review of above. Oral/Mouth Pain Score (Numeric/FACES): 9 - Related Data Allergies Allergy/AdvReac Type Severity Reaction Status Date / Time No Known Allergies Allergy Verified 10/26/20 03:09 Home Meds: Home Meds Amoxicillin/Potassium Clav [Amox Tr-K Clv 875-125 mg Tab] 1 each PO BID 10/24/20 [History] Labetalol HCl [Labetalol] 100 mg PO DAILY 10/24/20 [History] lamoTRIgine [Lamotrigine] 150 mg PO BID 10/24/20 [History] metFORMIN [Glucophage] 1,000 mg PO WITHDINNER 10/24/20 [History] oxyCODONE HCl/Acetaminophen [Percocet 5-325 mg Tablet] 1 - 2 tab PO Q6HR PRN #20 tablet 10/24/20 [Rx] Ibuprofen 600 mg PO Q6HR PRN #30 tablet 10/26/20 [Rx] traMADol [Ultram] 50 mg PO Q6H PRN #12 tab 10/26/20 [Rx] Past Medical History HEENT History: Reports: Impaired Vision Other HEENT History: uses eyeglasses Cardiovascular History: Reports: Blood Clots/VTE/DVT, Hypertension Respiratory History: Reports: PE Gastrointestinal History: Reports: None Genitourinary History: Reports: None 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 Musculoskeletal History: Reports: None Neurological History: Reports: None Psychiatric History: Reports: Anxiety Endocrine/Metabolic History: Reports: Diabetes, Type II, Obesity/BMI 30+ 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 Pump Model 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 Hematologic History: Reports: None Immunologic History: Reports: None Oncologic (Cancer) History: Reports: None Dermatologic History: Reports: None - Infectious Disease History Infectious Disease History: Reports: Chicken Pox - Past Surgical History Head Surgeries/Procedures: Reports: None HEENT Surgical History: Reports: None Cardiovascular Surgical History: Reports: None Respiratory Surgical History: Reports: None GI Surgical History: Reports: Appendectomy Endocrine Surgical History: Reports: None Neurological Surgical History: Reports: None Musculoskeletal Surgical History: Reports: Other (See Below) Other Musculoskeletal Surgeries/Procedures:: meniscus repair left knee Oncologic Surgical History: Reports: None Dermatological Surgical History: Reports: None Social & Family History - Family History Family Medical History: No Pertinent Family History Respiratory: Reports: PE Neurological: Reports: Seizure - Caffeine Use Caffeine Use: Reports: Coffee Caffeine Use Comment: 2 cups a day - Living Situation & Occupation Living situation: Reports: Single 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) ED ROS GENERAL - Review of Systems Review Of Systems: See Below ED EXAM, GENERAL - Physical Exam Exam: See Below Course - Vital Signs Last Recorded V/S: Last Vital Signs Temp 98.1 F 10/26/20 03:55 Pulse 91 10/26/20 03:55 Resp 18 10/26/20 03:55 BP 133/84 10/26/20 03:55 Pulse Ox 95 10/26/20 03:55 - Orders/Labs/Meds Meds: Medications Discontinued Medications Generic Name Dose Route Start Last Admin Trade Name Freq PRN Reason Stop Dose Admin Ketorolac Tromethamine 60 mg 10/26/20 03:12 10/26/20 03:28 Toradol IM 10/26/20 03:13 60 mg ONETIME ONE Administration Morphine Sulfate 4 mg 10/26/20 03:13 10/26/20 03:28 Morphine IM 10/26/20 03:14 4 mg ONETIME ONE Administration Ondansetron HCl 4 mg 10/26/20 03:13 10/26/20 03:28 Zofran Odt PO 10/26/20 03:14 4 mg ONETIME ONE Administration Tramadol HCl 50 mg 10/26/20 03:12 10/26/20 03:28 Ultram PO 10/26/20 03:13 50 mg ONETIME ONE Administration Departure - Departure Time of Disposition: 03: Disposition: Home, Self-Care 01 Condition: Good Clinical Impression: Stomatitis, viral, Aphthous ulcer of mouth - Discharge Information Prescriptions: Ibuprofen 600 mg PO Q6HR PRN #30 tablet PRN Reason: Pain traMADol [Ultram] 50 mg PO Q6H PRN #12 tab PRN Reason: Pain Instructions: Canker Sores, Stomatitis, [id number] Referrals: Mercy Cornell NP [Primary Care Provider] - Forms: ED Department Discharge Additional Instructions: Your seen and evaluated in the ER today secondary to the pain and swelling of your tongue from the aphthous ulcers and canker sores. These are usually secondary to viral infections. They are treated with pain medicines and plenty of hydration. Usually last anywhere between 5 to 7 days. Please make an appointment to see your doctor next week for reevaluation. You will be given a prescription for Ultram and ibuprofen to assist with your pain. Please drink plenty of liquids and stay as hydrated as possible. The following information is given to patients seen in the emergency department who are being discharged to home. This information is to outline your options for follow-up care. We provide all patients seen in our emergency department with a follow-up referral. The need for follow-up, as well as the timing and circumstances, are variable depending upon the specifics of your emergency department visit. If you don't have a primary care physician on staff, we will provide you with a referral. We always advise you to contact your personal physician following an emergency department visit to inform them of the circumstance of the visit and for follow-up with them and/or the need for any referrals to a consulting specialist. The emergency department will also refer you to a specialist when appropriate. This referral assures that you have the opportunity for follow-up care with a specialist. All of these measure are taken in an effort to provide you with optimal care, which includes your follow-up. Under all circumstances we always encourage you to contact your private physician who remains a resource for coordinating your care. When calling for follow-up care, please make the office aware that this follow-up is from your recent emergency room visit. If for any reason you are refused follow-up, please contact the [facility] Emergency Department at and asked to speak to the emergency department charge nurse. [facility] [address] [place] [id number] [facility] [address] [place] [address] Sepsis Event Note (ED) - Evaluation Sepsis Screening Result: No Definite Risk
[2020-10-26 03:55] VITALS: BP 133/84; PULSE 91
== END 2020-10-26 03:53 | disposition home or self-care (01) ==
LOC: MW.ED 02:53
DX: K12.0 Recurrent oral aphthae (principal); K12.1 Other forms of stomatitis; I10 Essential (primary) hypertension; E11.9 Type 2 diabetes mellitus without complications; E66.9 Obesity, unspecified; Z68.42 Body mass index [BMI] 45.0-49.9, adult; Z79.899 Other long term (current) drug therapy
CPT/HCPCS: 96372; 99283; A9270; J1885; J2270

== ENCOUNTER 2020-10-26 21:12 | Inpatient (IN) | payer BC ==
[2020-10-26] MEDS ORDERED: Ondansetron 4 MG/2 ML SDV IVPUSH ONE (21:23)
[2020-10-26] MEDS ORDERED: Sodium Chloride 0.9% 2.5 ML Syringe FLUSH PRN (21:23)
[2020-10-26] MEDS ORDERED: Ketorolac 30 MG/ML SDV IVPUSH ONE (21:23)
[2020-10-26] MEDS ORDERED: Sodium Chloride 0.9% 1,000 ML IV ONE ×2 (21:23→21:24)
[2020-10-26] MEDS ORDERED: Sodium Chloride 0.9% 10 ML Syringe FLUSH PRN (21:23)
[2020-10-26] MEDS ORDERED: HYDROmorphone 1 MG/ML Syringe IVPUSH ONE (21:23)
[2020-10-26 22:08] LABS: CARBON DIOXIDE,CO2 31.8 mmol/L (21.0-32.0); POTASSIUM,K 3.5 mmol/L (3.5-5.1)
[2020-10-26] MEDS ORDERED: Lidocaine 2% Viscous Solution 100 ML Bottle PO ONE (22:42)
[2020-10-26] MEDS ORDERED: Lidocaine 2% Viscous Solution 15 ML Cup ONE (22:43)
[2020-10-26] MEDS ORDERED: Lidocaine 2% Viscous Solution 15 ML Cup PO ONE ×2 (22:44)
--- NOTE | 2020-10-26 22:58 | EDM.PDOC ---
ED HPI GENERAL MEDICAL PROBLEM - General Chief Complaint: ENT Problem Stated Complaint: PAIN, NOT GETTING BETTER Time Seen by Provider: 10/26/20 21:25 - History of Present Illness INITIAL COMMENTS - FREE TEXT/NARRATIVE: HISTORY AND PHYSICAL: History of present illness: This is a 35-year-old female who presents ER today secondary to intractable pain, difficulty to tolerate p.o. solids and liquids secondary to aphthous ulcers in her oral mucosa x2 to 3 days. Patient was seen by her primary care physician secondary to sore throat and reports was diagnosed with strep throat and started on amoxicillin. At that time she had a coronavirus test which was negative. Patient shortly after starting her antibiotic was seen here in the ED 2 days ago secondary to pain and discomfort in her mouth. Patient had a CT scan of her soft tissue neck at that time which was negative for any abscess. Patient was discharged home with pain medicines including Magic mouthwash, Percocet, Motrin. Patient return to the ER yesterday where she was seen by me and was treated with a IM shot of morphine, Toradol, Ultram. Patient was discharged home with a prescription for Ultram which she has been taking. Patient reports that since has been home, after the IM medication wore off, she has been unable to tolerate any p.o. solids or liquids. Patient presents ER today for reevaluation of dehydration. Patient denies any recent fevers, shakes, chills, nausea, vomiting, diarrhea, dysuria, frequency, urgency. Patient reports that she has been using Anbesol ointment Rey, and on her oral ulcers without significant improvement. Review of systems: As per history of present illness and below otherwise all systems reviewed and negative. Past medical history: As per history of present illness and as reviewed below otherwise noncontr ibutory. Surgical history: As per history of present illness and as reviewed below otherwise noncontributory. Social history: No reported history of drug or alcohol abuse. Family history: As per history of present illness and as reviewed below otherwise noncontributory. Physical exam: Constitutional: Patient is oriented to person, place, and time. Appears well- developed and well-nourished. No distress. HEENT: Moist mucous membranes Head: Normocephalic and atraumatic Eyes: Right eye exhibits no discharge. Left eye exhibits no discharge. No scleral icterus Neck: Normal range of motion. No tracheal deviation present. Cardiovascular: Normal rate and regular rhythm. Pulmonary: Effort normal, no respiratory distress. Abdominal: No distention Musculoskeletal: Normal range of motion Neurologic: Alert and oriented to person, place and time. Skin: [place], warm and dry. Psychiatric: Normal mood and affect. Behavior is normal. Judgment and thought content normal. Nursing note and vital signs have been reviewed This patient was seen and evaluated during the 2019 SARS-CoV-2 novel coronavirus pandemic period. Community viral transmission is ongoing at time of this enco unter and the emergency department is operating under pandemic response procedures. Patient's ER physical exam is significant for multiple aphthous ulcers in her tongue that have increased in number since yesterday. Patient also has some superficial aphthous ulcers on her lower gumline. Patient's oropharynx is clear with some mild erythema and few ulcers to her oropharynx. Patient's airway is p atent with no stridor, angioedema, or difficulty tolerating secretions. Patient stable tolerating secretions appear to be limited secondary to her pain rather than difficulty from obstruction. Diagnostics: CBC, CMP unremarkable Therapeutics: Dilaudid 0.5 mg IV, Toradol 30 mg IV, NSS x2 L Assessment and plan: After medication has been given, the patient is still having significant amount of pain discomfort. I feel that if the patient is discharged she will likely return once again tomorrow as this appears to be an extremely angry looking oral mucosa and looks extremely painful. I have discussed the case with our hospitalist who agrees with admission to the hospital for observation for pain management and hydration since patient is unable to tolerate p.o. solids and liquids at home. Definitive disposition and diagnosis as appropriate pending reevaluation and review of above. oral Pain Score (Numeric/FACES): 9 - Related Data Allergies Allergy/AdvReac Type Severity Reaction Status Date / Time No Known Allergies Allergy Verified 10/26/20 21:22 Home Meds: Home Meds Amoxicillin/Potassium Clav [Amox Tr-K Clv 875-125 mg Tab] 1 each PO BID 10/24/20 [History] Labetalol HCl [Labetalol] 100 mg PO DAILY 10/24/20 [History] lamoTRIgine [Lamotrigine] 150 mg PO BID 10/24/20 [History] metFORMIN [Glucophage] 1,000 mg PO WITHDINNER 10/24/20 [History] oxyCODONE HCl/Acetaminophen [Percocet 5-325 mg Tablet] 1 - 2 tab PO Q6HR PRN #20 tablet 10/24/20 [Rx] Ibuprofen 600 mg PO Q6HR PRN #30 tablet 10/26/20 [Rx] traMADol [Ultram] 50 mg PO Q6H PRN #12 tab 10/26/20 [Rx] Sertraline [Zoloft] 50 mg PO DAILY 10/27/20 [History] hydroCHLOROthiazide [Hydrochlorothiazide] 1 tab PO DAILY 10/27/20 [History] Past Medical History HEENT History: Reports: Impaired Vision Other HEENT History: uses eyeglasses Cardiovascular History: Reports: Blood Clots/VTE/DVT, Hypertension Respiratory History: Reports: PE Gastrointestinal History: Reports: None Genitourinary History: Reports: None SCHOOL OPERATIONS MANAGER History: Reports: None Other SCHOOL OPERATIONS MANAGER History: on control pills Musculoskeletal History: Reports: None Neurological History: Reports: None Psychiatric History: Reports: Anxiety Endocrine/Metabolic History: Reports: Diabetes, Type II, Obesity/BMI 30+ Insulin Pump Model and Show Card Letterer: None Hematologic History: Reports: None Immunologic History: Reports: None Oncologic (Cancer) History: Reports: None Dermatologic History: Reports: None - Infectious Disease History Infectious Disease History: Reports: Chicken Pox - Past Surgical History Head Surgeries/Procedures: Reports: None HEENT Surgical History: Reports: None Cardiovascular Surgical History: Reports: None Respiratory Surgical History: Reports: None GI Surgical History: Reports: Appendectomy Endocrine Surgical History: Reports: None Neurological Surgical History: Reports: None Musculoskeletal Surgical History: Reports: Other (See Below) Other Musculoskeletal Surgeries/Procedures:: meniscus repair left knee Oncologic Surgical History: Reports: None Dermatological Surgical History: Reports: None Social & Family History - Family History Family Medical History: No Pertinent Family History Respiratory: Reports: PE Neurological: Reports: Seizure - Tobacco Use Tobacco Use Status *Q: Never Tobacco User - Caffeine Use Caffeine Use: Reports: Coffee, Soda Caffeine Use Comment: 2 cups a day - Recreational Drug Use Recreational Drug Use: No - Living Situation & Occupation Living situation: Reports: Single 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) ED ROS GENERAL - Review of Systems Review Of Systems: See Below ED EXAM, GENERAL - Physical Exam Exam: See Below Course - Vital Signs Last Recorded V/S: Last Vital Signs Temp 98.4 F 01/11/21 15:20 Pulse 73 10/27/20 15:20 Resp 16 10/27/20 15:20 BP 134/89 10/27/20 15:20 Pulse Ox 94 L 10/27/20 15:20 - Orders/Labs/Meds Orders: Active Orders 24 hr Category Date Time Status Patient Status [ADT] Routine ADT 10/26/20 22:53 Active HSV 1/2 PCR [REF] Stat Lab 10/26/20 23:26 Received Sodium Chloride 0.9% [Saline Flush] Med 10/26/20 21:23 Active 2.5 ml FLUSH ASDIRECTED PRN Saline Lock Insert [OM.PC] Stat Oth 10/26/20 21:23 Ordered Medication Orders Albuterol/Ipratropium (Duoneb 3.0-0.5 Mg/3 Ml) 3 ml NEB Q4HRRT PRN PRN Reason: Shortness Of Breath/wheezing Lidocaine HCl 30 ml/ Al Hydroxide/Mg Hydroxide 30 ml/Diphenhydramine HCl 75 mg/Nystatin 30 ml 0 ml PO TID [facility] Last Admin: 10/27/20 14:35 Dose: 10 ml Documented by: GURINDER Dexamethasone (Dexamethasone Intensol) 1 mg PO DAILY [facility] Dextrose/Water (Dextrose 50% In Water) 50 ml IV ASDIRECTED PRN PRN Reason: Hypoglycemia Enoxaparin Sodium (Lovenox) 40 mg SUBCUT Q24H [facility] Last Admin: 10/27/20 18:05 Dose: 40 mg Documented by: GURINDER Glucagon (Glucagen) 1 mg IM ASDIRECTED PRN PRN Reason: Hypoglycemia Hydrochlorothiazide (Hydrochlorothiazide) 25 mg PO DAILY [facility] Acyclovir 1,000 mg/ Sodium (Chloride) 270 mls @ 250 mls/hr IV Q8H [facility] Last Admin: 10/27/20 11:24 Dose: 250 mls/hr Documented by: GURINDER Lactated Ringer's (Ringers, Lactated) 1,000 mls @ 200 mls/hr IV Q5H [facility] Last Admin: 10/27/20 16:38 Dose: 200 mls/hr Documented by: Infusion: 10/27/20 15:27 Dose: 200 mls/hr Documented by: Admin: 10/27/20 10:27 Dose: 200 mls/hr Documented by: GURINDER Pantoprazole Sodium 40 mg/ (Sodium Chloride) 10 mls @ 300 mls/hr IV DAILY [facility] Insulin Aspart (Novolog) 0 unit SUBCUT Q6H [facility]; Protocol Last Admin: 10/27/20 17:59 Dose: Not Given Documented by: Admin: 10/27/20 12:32 Dose: Not Given Documented by: GURINDER Ketorolac Tromethamine (Toradol) 15 mg IVPUSH Q3H PRN PRN Reason: Pain Labetalol HCl (Normodyne) 100 mg PO DAILY [facility] Lamotrigine (Lamotrigine) 150 mg PO BID [facility] Last Admin: 10/27/20 12:32 Dose: 150 mg Documented by: GURINDER Minocycline HCl (Minocin) 100 mg PO TID [facility] Last Admin: 10/27/20 14:35 Dose: 100 mg Documented by: GURINDER Ondansetron HCl (Zofran) 4 mg IVPUSH Q4H PRN PRN Reason: Nausea/Vomiting Oxycodone HCl (Oxycodone) 10 mg PO Q6H PRN PRN Reason: Pain (moderate 4-6) Sertraline HCl (Zoloft) 50 mg PO DAILY [facility] Last Admin: 10/27/20 12:32 Dose: 50 mg Documented by: GURINDER Sodium Chloride (Saline Flush) 2.5 ml FLUSH ASDIRECTED PRN PRN Reason: Keep Vein Open Last Admin: 10/26/20 21:49 Dose: 2.5 ml Documented by: GUERRERO Labs: Laboratory Tests 10/26/20 10/26/20 10/26/20 Range/Units 21:40 21:40 21:40 WBC 12.09 H (4.0-11.0) K/uL RBC 5.06 (4.30-5.90) M/uL Hgb 14.3 (12.0-16.0) g/dL Hct 43.6 (36.0-46.0) % MCV 86.2 (80.0-98.0) fL MCH 28.3 (27.0-32.0) pg MCHC 32.8 (31.0-37.0) g/dL RDW Std Deviation 44.8 (28.0-62.0) fl RDW Coeff of Nicole 14 (11.0-15.0) % Plt Count 247 (150-400) K/uL MPV 9.70 (7.40-12.00) fL Neut % (Auto) 75.3 (48.0-80.0) % Lymph % (Auto) 12.7 L (16.0-40.0) % [place] % (Auto) 11.7 (0.0-15.0) % Eos % (Auto) 0.1 (0.0-7.0) % Baso % (Auto) 0.2 (0.0-1.5) % Neut # (Auto) 9.1 H (1.4-5.7) K/uL Lymph # (Auto) 1.5 (0.6-2.4) K/uL [place] # (Auto) 1.4 H (0.0-0.8) K/uL Eos # (Auto) 0.0 (0.0-0.7) K/uL Baso # (Auto) 0.0 (0.0-0.1) K/uL Nucleated RBC % 0.0 /100WBC Nucleated RBCs # 0 K/uL Sodium 138 (136-145) mmol/L Potassium 3.5 (3.5-5.1) mmol/L Chloride 96 L (98-107) mmol/L Carbon Dioxide 31.8 (21.0-32.0) mmol/L BUN 14 (7.0-18.0) mg/dL Creatinine 1.1 H (0.6-1.0) mg/dL Est Cr Clr Drug Dosing 99.79 mL/min Estimated GFR (MDRD) 57.2 ml/min Glucose 110 H (74-106) mg/dL Calcium 9.1 (8.5-10.1) mg/dL Total Bilirubin 0.4 (0.2-1.0) mg/dL AST 54 H (15-37) IU/L ALT 40 (14-63) IU/L Alkaline Phosphatase 78 (46-116) U/L Total Protein 8.7 H (6.4-8.2) g/dL Albumin 3.4 (3.4-5.0) g/dL Globulin 5.3 H (2.6-4.0) g/dL Albumin/Globulin Ratio 0.6 L (0.9-1.6) HCG, Qual NEGATIVE (NEG) SARS-CoV-2 RNA (MAYA) (NEGATIVE) 10/26/20 Range/Units 22:51 WBC (4.0-11.0) K/uL RBC (4.30-5.90) M/uL Hgb (12.0-16.0) g/dL Hct (36.0-46.0) % MCV (80.0-98.0) fL MCH (27.0-32.0) pg MCHC (31.0-37.0) g/dL RDW Std Deviation (28.0-62.0) fl RDW Coeff of Nicole (11.0-15.0) % Plt Count (150-400) K/uL MPV (7.40-12.00) fL Neut % (Auto) (48.0-80.0) % Lymph % (Auto) (16.0-40.0) % [place] % (Auto) (0.0-15.0) % Eos % (Auto) (0.0-7.0) % Baso % (Auto) (0.0-1.5) % Neut # (Auto) (1.4-5.7) K/uL Lymph # (Auto) (0.6-2.4) K/uL [place] # (Auto) (0.0-0.8) K/uL Eos # (Auto) (0.0-0.7) K/uL Baso # (Auto) (0.0-0.1) K/uL Nucleated RBC % /100WBC Nucleated RBCs # K/uL Sodium (136-145) mmol/L Potassium (3.5-5.1) mmol/L Chloride (98-107) mmol/L Carbon Dioxide (21.0-32.0) mmol/L BUN (7.0-18.0) mg/dL Creatinine (0.6-1.0) mg/dL Est Cr Clr Drug Dosing mL/min Estimated GFR (MDRD) ml/min Glucose (74-106) mg/dL Calcium (8.5-10.1) mg/dL Total Bilirubin (0.2-1.0) mg/dL AST (15-37) IU/L ALT (14-63) IU/L Alkaline Phosphatase (46-116) U/L Total Protein (6.4-8.2) g/dL Albumin (3.4-5.0) g/dL Globulin (2.6-4.0) g/dL Albumin/Globulin Ratio (0.9-1.6) HCG, Qual (NEG) SARS-CoV-2 RNA (MAYA) NEGATIVE (NEGATIVE) Meds: Medications Generic Name Dose Route Start Last Admin Trade Name Freq PRN Reason Stop Dose Admin Albuterol/Ipratropium 3 ml 10/27/20 00:50 Duoneb 3.0-0.5 Mg/3 Ml NEB Q4HRRT PRN Shortness Of Breath/wheezing Lidocaine HCl 30 ml/ Al 0 ml 10/27/20 11:55 10/27/20 14:35 Hydroxide/Mg Hydroxide 30 ml/ PO 10 ml Diphenhydramine HCl 75 mg/ TID [facility] Administration Nystatin 30 ml Dexamethasone 1 mg 10/28/20 09:00 Dexamethasone Intensol PO DAILY [facility] Dextrose/Water 50 ml 10/27/20 10:01 Dextrose 50% In Water IV ASDIRECTED PRN Hypoglycemia Enoxaparin Sodium 40 mg 10/27/20 17:45 10/27/20 18:05 Lovenox SUBCUT 40 mg Q24H [facility] Administration Glucagon 1 mg 10/27/20 10:01 Glucagen IM ASDIRECTED PRN Hypoglycemia Hydrochlorothiazide 25 mg 10/28/20 09:00 Hydrochlorothiazide PO DAILY [facility] Acyclovir 1,000 mg/ Sodium 270 mls @ 250 mls/hr 10/27/20 10:15 10/27/20 11:24 Chloride IV 250 mls/hr Q8H [facility] Administration Lactated Ringer's 1,000 mls @ 200 mls/hr 10/27/20 10:15 10/27/20 16:38 Ringers, Lactated IV 200 mls/hr Q5H [facility] Administration Pantoprazole Sodium 40 mg/ 10 mls @ 300 mls/hr 10/28/20 09:00 Sodium Chloride IV DAILY [facility] Insulin Aspart 0 unit 10/27/20 12:00 10/27/20 17:59 Novolog SUBCUT Not Given Q6H [facility] Protocol Ketorolac Tromethamine 15 mg 10/27/20 16:45 Toradol IVPUSH Q3H PRN Pain Labetalol HCl 100 mg 10/28/20 09:00 Normodyne PO DAILY [facility] Lamotrigine 150 mg 10/27/20 12:15 10/27/20 12:32 Lamotrigine PO 150 mg BID [facility] Administration Minocycline HCl 100 mg 10/27/20 14:00 10/27/20 14:35 Minocin PO 100 mg TID [facility] Administration Ondansetron HCl 4 mg 10/27/20 00:50 Zofran IVPUSH Q4H PRN Nausea/Vomiting Oxycodone HCl 10 mg 10/27/20 21:00 Oxycodone PO Q6H PRN Pain (moderate 4-6) Sertraline HCl 50 mg 10/27/20 12:00 10/27/20 12:32 Zoloft PO 50 mg DAILY [facility] Administration Sodium Chloride 2.5 ml 10/26/20 21:23 10/26/20 21:49 Saline Flush FLUSH 2.5 ml ASDIRECTED PRN Administration Keep Vein Open Discontinued Medications Generic Name Dose Route Start Last Admin Trade Name Freq PRN Reason Stop Dose Admin Benzocaine 2 each 10/27/20 16:39 10/27/20 17:59 Hurricaine One 20% MUCMEM 10/27/20 16:40 2 each ONETIME ONE Administration Lidocaine HCl 30 ml/ Al 0 ml 10/27/20 06:00 10/27/20 07:00 Hydroxide/Mg Hydroxide 30 ml/ PO 10 ml Diphenhydramine HCl 75 mg/ TID [facility] Administration Nystatin 30 ml Dexamethasone 0.5 mg 10/27/20 00:57 10/27/20 11:37 Dexamethasone Intensol PO 0.5 ml Q6HR [facility] Administration Dexamethasone 10 mg 10/27/20 14:51 10/27/20 15:17 Decadron IVPUSH 10/27/20 14:52 10 mg ONETIME ONE Administration Dexamethasone 6 mg 10/28/20 09:00 Dexamethasone Intensol PO DAILY [facility] Fentanyl 25 mcg 10/27/20 16:44 10/27/20 18:04 Sublimaze IVPUSH 10/27/20 16:45 25 mcg ONETIME ONE Administration Hydromorphone HCl 0.5 mg 10/26/20 21:23 10/26/20 21:49 Dilaudid IVPUSH 10/26/20 21:24 0.5 mg ONETIME ONE Administration Hydromorphone HCl 0.5 mg 10/26/20 23:44 10/26/20 23:55 Dilaudid IVPUSH 10/26/20 23:45 0.5 mg ONETIME ONE Administration Hydromorphone HCl 0.5 mg 10/27/20 00:50 10/27/20 01:51 Dilaudid IVPUSH 0.5 mg Q3H PRN Administration Pain (severe 7-10) Hydromorphone HCl 1 mg 10/27/20 05:01 10/27/20 05:17 Dilaudid IVPUSH 1 mg Q3H PRN Administration Pain (severe 7-10) Hydromorphone HCl 1 mg 10/27/20 08:18 10/27/20 08:44 Dilaudid IVPUSH 1 mg Q3H PRN Administration Pain (severe 7-10) Sodium Chloride 1,000 mls @ 999 mls/hr 10/26/20 21:24 10/26/20 21:47 Normal Saline IV 10/26/20 22:24 999 mls/hr .Bolus ONE Administration Sodium Chloride 1,000 mls @ 999 mls/hr 10/26/20 21:23 10/26/20 22:39 Normal Saline IV 10/26/20 22:23 999 mls/hr .Bolus ONE Administration Lactated Ringer's 1,000 mls @ 125 mls/hr 10/27/20 01:00 10/27/20 02:22 Ringers, Lactated IV 125 mls/hr ASDIRECTED [facility] Administration Ketorolac Tromethamine 30 mg 10/26/20 21:23 10/26/20 21:49 Toradol IVPUSH 10/26/20 21:24 30 mg ONETIME ONE Administration Ketorolac Tromethamine 30 mg 10/27/20 05:00 10/27/20 11:51 Toradol IVPUSH 30 mg Q6H PRN Administration Pain Lidocaine HCl 20 ml 10/26/20 22:42 10/26/20 22:47 Xylocaine 2% Viscous PO 10/26/20 22:43 Not Given ONETIME ONE Lidocaine HCl Confirm 10/26/20 22:43 10/26/20 22:47 Xylocaine 2% Viscous Administered 10/26/20 22:44 Not Given Dose 30 ml .ROUTE .STK-MED ONE Lidocaine HCl 30 ml 10/26/20 22:44 10/26/20 22:47 Xylocaine 2% Viscous PO 10/26/20 22:45 Not Given ONETIME ONE Lidocaine HCl 20 ml 10/26/20 22:44 10/26/20 22:46 Xylocaine 2% Viscous PO 10/26/20 22:45 20 ml ONETIME ONE Administration Lidocaine HCl 20 ml 10/27/20 16:39 10/27/20 17:59 Xylocaine 2% Viscous PO 10/27/20 16:40 20 ml ONETIME ONE Administration Lorazepam 2 mg 10/27/20 10:11 10/27/20 10:24 Ativan IVPUSH 10/27/20 10:12 2 mg ONETIME ONE Administration Morphine Sulfate 4 mg 10/27/20 14:51 10/27/20 15:13 Morphine IVPUSH 4 mg Q3H PRN Administration Pain Ondansetron HCl 4 mg 10/26/20 21:23 10/26/20 21:49 Zofran IVPUSH 10/26/20 21:24 4 mg ONETIME ONE Administration Penicillin G Benzathine 2.4 millunits 10/27/20 10:37 10/27/20 11:26 Bicillin L-A IM 10/27/20 10:38 2.4 millunits ONETIME ONE Administration Sodium Chloride 10 ml 10/26/20 21:23 10/26/20 21:49 Saline Flush FLUSH 10 ml ASDIRECTED PRN Administration Keep Vein Open Departure - Departure Time of Disposition: 22:58 Disposition: Refer to Observation Condition: Good Clinical Impression: Herpetic gingivostomatitis, Aphthous ulcer of mouth, Dehydration - Discharge Information Sepsis Event Note (ED) - Evaluation Sepsis Screening Result: No Definite Risk - My Orders Last 24 Hours: My Active Orders 10/26/20 21:23 Sodium Chloride 0.9% [Saline Flush] 2.5 ml FLUSH ASDIRECTED PRN Saline Lock Insert [OM.PC] Stat 10/26/20 22:53 Patient Status [ADT] Routine 10/26/20 23:26 HSV 1/2 PCR [REF] Stat - Assessment/Plan Last 24 Hours: My Active Orders 10/26/20 21:23 Sodium Chloride 0.9% [Saline Flush] 2.5 ml FLUSH ASDIRECTED PRN Saline Lock Insert [OM.PC] Stat 10/26/20 22:53 Patient Status [ADT] Routine 10/26/20 23:26 HSV 1/2 PCR [REF] Stat
[2020-10-26] MEDS ORDERED: HYDROmorphone 2 MG/ML Syringe IVPUSH ONE (23:44)
[2020-10-27] MEDS ORDERED: Ondansetron 4 MG/2 ML SDV IVPUSH PRN (00:50)
[2020-10-27] MEDS ORDERED: HYDROmorphone 2 MG/ML Syringe IVPUSH PRN ×2 (00:50→05:01)
[2020-10-27] MEDS ORDERED: Albuterol/Ipratropium 3.0-0.5 MG/3 ML Neb Soln NEB PRN (00:50)
[2020-10-27] MEDS ORDERED: Lactated Ringers 1,000 ML IV SCH (01:00)
[2020-10-27] MEDS: Dexamethasone 1 MG/ML Oral Drops 30 ML Bottle PO SCH ×3 (02:48→11:37)
[2020-10-27] MEDS: LIDOCAINE 2% PO SCH ×16 (04:21→21:57)
[2020-10-27] MEDS: [UNRECOGNIZED DRUG - OTHER] PO SCH ×16 (04:21→21:57)
[2020-10-27] MEDS: DIPHENHYDRAMINE PO SCH ×16 (04:21→21:57)
[2020-10-27] MEDS: MAG HYDROX PO SCH ×16 (04:21→21:57)
[2020-10-27] MEDS: SIMETH PO SCH ×16 (04:21→21:57)
[2020-10-27] MEDS: ALUM HYDROX PO SCH ×16 (04:21→21:57)
[2020-10-27] MEDS: Ketorolac 30 MG/ML SDV IVPUSH PRN ×2 (05:07→11:51)
[2020-10-27 06:50] LABS: CARBON DIOXIDE,CO2 29.6 mmol/L (21.0-32.0)
[2020-10-27] MEDS ORDERED: HYDROmorphone 1 MG/ML Syringe IVPUSH PRN (08:18)
[2020-10-27] MEDS ORDERED: 50% Dextrose in Water 50 ML Syringe IV PRN (10:01)
[2020-10-27] MEDS ORDERED: Glucagon,Human Recombinant 1 MG Vial IM PRN (10:01)
[2020-10-27] MEDS ORDERED: LORazepam 2 MG/ML SDV IVPUSH ONE (10:11)
[2020-10-27] MEDS: Lactated Ringers 1,000 ML IV SCH ×3 (10:27→23:04)
[2020-10-27] MEDS ORDERED: Penicillin G Benzathine 1,200,000 Units/2 ML Syringe IM ONE (10:37)
--- NOTE | 2020-10-27 11:45 | PCM.HP.2 ---
<Dolores Barriga - Last Filed: 10/27/20 17:15> H&P History of Present Illness - General Date of Service: 10/27/20 Admit Problem/Dx: Admission Diagnosis/Problem Admission Diagnosis/Problem Dehydration - History of Present Illness Initial Comments - Free Text/Narative: Patient is a kofi 35-year-old female admitted for herpetic gingiva stomatitis ptosis versus aphthous ulcers of the mouth and significant dehydration. Patient initially came in with intractable pain, unable to tolerate p.o. both solids and liquids since last 3 days. Denies any previous similar episodes, denies any known sick contacts with similar symptoms, denies any previous herpetic outbreaks. Previously was seen in PCPs office, thought to have strep throat and was treated with amoxicillin, patient did not complete complete course of antibiotics due to difficulty tolerating p.o. Since has had repeat visits to the ER; 2 days prior was given Magic mouthwash and pain control with Percocet and Motrin. In addition CT scan of the neck did not indicate any abscess or soft tissue abnormalities. Shortly after patient returned to the ED early yesterday, was given IM morphine, Toradol and Ultram for pain. Was discharged with Ultram prescription. Patient then again resumed to the ED once IM pain medication had worn off, complaining of significant pain rated 7 out of 10 on the pain scale. Denied any alleviating factors. States worsen with talking, or putting any solids or liquids in her mouth. Overnight, continue to use oral swabs with ice water. This morning, patient is tearful and uncomfortable asking for symptom relief. Denies any shortness of breath, cough. At bedside noted multiple vesicular lesions on the inner side of her lip on peripheral margins of the tongue bilaterally and gumlines kervin aterally. No erythema or discharge noted from eyes ears throat or nose. Patient remains afebrile and vitally stable. oral Pain Score (Numeric/FACES): 9 - Related Data Allergies/Adverse Reactions: Allergies Allergy/AdvReac Type Severity Reaction Status Date / Time No Known Allergies Allergy Verified 10/26/20 21:22 Home Medications: Home Meds Amoxicillin/Potassium Clav [Amox Tr-K Clv 875-125 mg Tab] 1 each PO BID 10/24/20 [History] Labetalol HCl [Labetalol] 100 mg PO DAILY 10/24/20 [History] lamoTRIgine [Lamotrigine] 150 mg PO BID 10/24/20 [History] metFORMIN [Glucophage] 1,000 mg PO WITHDINNER 10/24/20 [History] oxyCODONE HCl/Acetaminophen [Percocet 5-325 mg Tablet] 1 - 2 tab PO Q6HR PRN #20 tablet 10/24/20 [Rx] Ibuprofen 600 mg PO Q6HR PRN #30 tablet 10/26/20 [Rx] traMADol [Ultram] 50 mg PO Q6H PRN #12 tab 10/26/20 [Rx] Sertraline [Zoloft] 50 mg PO DAILY 10/27/20 [History] hydroCHLOROthiazide [Hydrochlorothiazide] 1 tab PO DAILY 10/27/20 [History] Past Medical History HEENT History: Reports: Impaired Vision Other HEENT History: uses eyeglasses Cardiovascular History: Reports: Blood Clots/VTE/DVT, Hypertension Respiratory History: Reports: PE Gastrointestinal History: Reports: None Genitourinary History: Reports: None SPECIAL EDUCATION SUPERINTENDENT History: Reports: None Other OB/BYN History: on control pills Musculoskeletal History: Reports: None Neurological History: Reports: None Psychiatric History: Reports: Anxiety Endocrine/Metabolic History: Reports: Diabetes, Type II, Obesity/BMI 30+ Insulin Pump Model and Senior Payroll Administrator: None Hematologic History: Reports: None Immunologic History: Reports: None Oncologic (Cancer) History: Reports: None Dermatologic History: Reports: None - Infectious Disease History Infectious Disease History: Reports: Chicken Pox - Past Surgical History Head Surgeries/Procedures: Reports: None HEENT Surgical History: Reports: None Cardiovascular Surgical History: Reports: None Respiratory Surgical History: Reports: None GI Surgical History: Reports: Appendectomy Endocrine Surgical History: Reports: None Neurological Surgical History: Reports: None Musculoskeletal Surgical History: Reports: Other (See Below) Other Musculoskeletal Surgeries/Procedures:: meniscus repair left knee Oncologic Surgical History: Reports: None Dermatological Surgical History: Reports: None Social & Family History - Family History Family Medical History: No Pertinent Family History Respiratory: Reports: PE Neurological: Reports: Seizure - Tobacco Use Tobacco Use Status *Q: Never Tobacco User - Caffeine Use Caffeine Use: Reports: Coffee, Soda Caffeine Use Comment: 2 cups a day - Recreational Drug Use Recreational Drug Use: No - Living Situation & Occupation Living situation: Reports: Single 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 Exam - Exam Exam: See Below - Vital Signs Vital Signs: Last Vital Signs Temp 95.9 F L 10/27/20 11:04 Pulse 82 10/27/20 11:04 Resp 20 10/27/20 11:04 BP 149/83 H 10/27/20 11:04 Pulse Ox 90 L 10/27/20 11:04 Weight: 183.569 kg - Exam Quality Assessment: DVT Prophylaxis (SCDs) General: Alert, Oriented, Cooperative, Moderate Distress HEENT: Conjunctiva Clear, EACs Clear, EOMI, Hearing Intact, Mucosa Moist & [place] (Vesicular lesions on the inside of the upper lip, lower lip, and bilateral margins of the tongue, bilaterally on gumlines), Nares Patent, PERRLA Neck: Supple, Trachea Midline, Full Range of Motion, Lymphadenopathy Lungs: Clear to Auscultation, Normal Respiratory Effort Cardiovascular: Regular Rate, Regular Rhythm GI/Abdominal Exam: Normal Bowel Sounds, Soft, Non-Tender, No Organomegaly, No Distention, No Mass Extremities: Normal Inspection, Normal Range of Motion, Non-Tender, No Pedal Edema, Normal Capillary Refill Peripheral Pulses: 2+: Radial (L), Radial (R), Dorsalis Pedis (L), Dorsalis Pedis (R) Skin: Warm, Dry, Other (Vesicular lesions within oral cavity,/ulcerations) Neurological: Cranial Nerves Intact, Reflexes Equal Bilateral Neuro Extensive - Mental Status: Alert, Oriented x3, Normal Mood/Affect, Normal Cognition, Memory Intact Neuro Extensive - Motor, Sensory, Reflexes: CN II-XII Intact, Normal Gait, Normal Reflexes DTR: 2+: Bicep (L), Bicep (R), Achilles (L), Achilles (R) Psychiatric: Alert, Normal Affect, Normal Mood - Patient Data Lab Results Last 24 hrs: Laboratory Results - last 24 hr 10/26/20 10/26/20 10/26/20 Range/Units 21:40 21:40 21:40 WBC 12.09 H (4.0-11.0) K/uL RBC 5.06 (4.30-5.90) M/uL Hgb 14.3 (12.0-16.0) g/dL Hct 43.6 (36.0-46.0) % MCV 86.2 (80.0-98.0) fL MCH 28.3 (27.0-32.0) pg MCHC 32.8 (31.0-37.0) g/dL RDW Std Deviation 44.8 (28.0-62.0) fl RDW Coeff of Nicole 14 (11.0-15.0) % Plt Count 247 (150-400) K/uL MPV 9.70 (7.40-12.00) fL Neut % (Auto) 75.3 (48.0-80.0) % Lymph % (Auto) 12.7 L (16.0-40.0) % [place] % (Auto) 11.7 (0.0-15.0) % Eos % (Auto) 0.1 (0.0-7.0) % Baso % (Auto) 0.2 (0.0-1.5) % Neut # (Auto) 9.1 H (1.4-5.7) K/uL Lymph # (Auto) 1.5 (0.6-2.4) K/uL [place] # (Auto) 1.4 H (0.0-0.8) K/uL Eos # (Auto) 0.0 (0.0-0.7) K/uL Baso # (Auto) 0.0 (0.0-0.1) K/uL Nucleated RBC % 0.0 /100WBC Nucleated RBCs # 0 K/uL Sodium 138 (136-145) mmol/L Potassium 3.5 (3.5-5.1) mmol/L Chloride 96 L (98-107) mmol/L Carbon Dioxide 31.8 (21.0-32.0) mmol/L BUN 14 (7.0-18.0) mg/dL Creatinine 1.1 H (0.6-1.0) mg/dL Est Cr Clr Drug Dosing 99.79 mL/min Estimated GFR (MDRD) 57.2 ml/min Glucose 110 H (74-106) mg/dL Calcium 9.1 (8.5-10.1) mg/dL Phosphorus (2.6-4.7) mg/dL Magnesium (1.8-2.4) mg/dL Total Bilirubin 0.4 (0.2-1.0) mg/dL AST 54 H (15-37) IU/L ALT 40 (14-63) IU/L Alkaline Phosphatase 78 (46-116) U/L Total Protein 8.7 H (6.4-8.2) g/dL Albumin 3.4 (3.4-5.0) g/dL Globulin 5.3 H (2.6-4.0) g/dL Albumin/Globulin Ratio 0.6 L (0.9-1.6) HCG, Qual NEGATIVE (NEG) SARS-CoV-2 RNA (MAYA) (NEGATIVE) 10/26/20 10/27/20 10/27/20 Range/Units 22:51 06:00 06:00 WBC 11.43 H (4.0-11.0) K/uL RBC 4.73 (4.30-5.90) M/uL Hgb 13.0 (12.0-16.0) g/dL Hct 41.0 (36.0-46.0) % MCV 86.7 (80.0-98.0) fL MCH 27.5 (27.0-32.0) pg MCHC 31.7 (31.0-37.0) g/dL RDW Std Deviation 45.5 (28.0-62.0) fl RDW Coeff of Nicole 14 (11.0-15.0) % Plt Count 246 (150-400) K/uL MPV 9.60 (7.40-12.00) fL Neut % (Auto) 76.3 (48.0-80.0) % Lymph % (Auto) 12.9 L (16.0-40.0) % [place] % (Auto) 10.6 (0.0-15.0) % Eos % (Auto) 0.0 (0.0-7.0) % Baso % (Auto) 0.2 (0.0-1.5) % Neut # (Auto) 8.7 H (1.4-5.7) K/uL Lymph # (Auto) 1.5 (0.6-2.4) K/uL [place] # (Auto) 1.2 H (0.0-0.8) K/uL Eos # (Auto) 0.0 (0.0-0.7) K/uL Baso # (Auto) 0.0 (0.0-0.1) K/uL Nucleated RBC % 0.0 /100WBC Nucleated RBCs # 0 K/uL Sodium 139 (136-145) mmol/L Potassium 4.0 (3.5-5.1) mmol/L Chloride 98 (98-107) mmol/L Carbon Dioxide 29.6 (21.0-32.0) mmol/L BUN 12 (7.0-18.0) mg/dL Creatinine 1.1 H (0.6-1.0) mg/dL Est Cr Clr Drug Dosing 99.79 mL/min Estimated GFR (MDRD) 57.2 ml/min Glucose 110 H (74-106) mg/dL Calcium 8.9 (8.5-10.1) mg/dL Phosphorus 3.4 (2.6-4.7) mg/dL Magnesium 2.0 (1.8-2.4) mg/dL Total Bilirubin (0.2-1.0) mg/dL AST (15-37) IU/L ALT (14-63) IU/L Alkaline Phosphatase (46-116) U/L Total Protein (6.4-8.2) g/dL Albumin (3.4-5.0) g/dL Globulin (2.6-4.0) g/dL Albumin/Globulin Ratio (0.9-1.6) HCG, Qual (NEG) SARS-CoV-2 RNA (MAYA) NEGATIVE (NEGATIVE) Result Diagrams: 10/27/20 06:00 10/27/20 06:00 Sepsis Event Note - Evaluation Sepsis Screening Result: No Definite Risk - Focused Exam Vital Signs: Vital Signs Temp Pulse Resp BP Pulse Ox 10/27/20 11:04 95.9 F L 82 20 149/83 H 90 L 10/27/20 07:08 96.1 F L 75 20 126/76 94 L 10/27/20 04:27 97.2 F 78 18 135/79 95 10/27/20 01:40 97.5 F 78 18 135/78 93 L 10/27/20 01:00 81 20 95 Problem List Initiated/Reviewed/Updated: Yes Orders Last 24hrs: Active Orders 24 hr Category Date Time Status Patient Status [ADT] Routine ADT 10/26/20 22:53 Active Ambulate [RC] ASDIRECTED Care 10/27/20 00:50 Active Antiembolic Devices [RC] PER UNIT ROUTINE Care 10/27/20 00:51 Active Blood Glucose Check, Bedside [RC] Q6HR Care 10/27/20 12:00 Active Oxygen Therapy [RC] PRN Care 10/27/20 00:50 Active RT Aerosol Therapy [RC] ASDIRECTED Care 10/27/20 00:52 Active VTE/DVT Education [RC] PER UNIT ROUTINE Care 10/27/20 00:50 Active Vital Signs [RC] Q4H Care 10/27/20 00:50 Active Clear Liquid Diet [DIET] Diet 10/27/20 Breakfast Active HSV 1/2 PCR [REF] Stat Lab 10/26/20 23:26 Received STREP A BY PCR [MOLEC] Urgent Lab 10/27/20 10:33 Ordered Acyclovir [Zovirax] 1,000 mg Med 10/27/20 10:15 Active Sodium Chloride 0.9% [Normal Saline] 250 ml IV Q8H Albuterol/Ipratropium [DuoNeb 3.0-0.5 MG/3 ML] Med 10/27/20 00:50 Active 3 ml NEB Q4HRRT PRN Dextrose 50% in Water Med 10/27/20 10:01 Active 50 ml IV ASDIRECTED PRN Glucagon,Human Recombinant [GlucaGen] Med 10/27/20 10:01 Active 1 mg IM ASDIRECTED PRN HYDROmorphone [Dilaudid] Med 10/27/20 08:18 Active 1 mg IVPUSH Q3H PRN Insulin Aspart [NovoLOG] Med 10/27/20 12:00 Active See Protocol SUBCUT Q6H Ketorolac [Toradol] Med 10/27/20 05:00 Active 30 mg IVPUSH Q6H PRN Lactated Ringers [Ringers, Lactated] 1,000 ml Med 10/27/20 10:15 Active IV Q5H Lidocaine 2% [Xylocaine 2% Viscous] 30 ml Med 10/27/20 06:00 Active Alum Hydrox/Mag Hydrox/Simeth [Mag-Al Plus] 30 ml diphenhydrAMINE [Benadryl] 75 mg Nystatin [Mycostatin] 30 ml PO TID Ondansetron [Zofran] Med 10/27/20 00:50 Active 4 mg IVPUSH Q4H PRN Sodium Chloride 0.9% [Saline Flush] Med 10/26/20 21:23 Active 2.5 ml FLUSH ASDIRECTED PRN dexAMETHasone [DexAMETHasone IntensoL] Med 10/27/20 00:57 Active 0.5 mg PO Q6HR Saline Lock Insert [OM.PC] Stat Oth 10/26/20 21:23 Ordered Sequential Compression Device [OM.PC] Per Unit Routine Oth 10/27/20 00:51 Ordered Resuscitation Status Routine Resus Stat 10/27/20 00:50 Ordered Medication Orders Albuterol/Ipratropium (Duoneb 3.0-0.5 Mg/3 Ml) 3 ml NEB Q4HRRT PRN PRN Reason: Shortness Of Breath/wheezing Lidocaine HCl 30 ml/ Al Hydroxide/Mg Hydroxide 30 ml/Diphenhydramine HCl 75 mg/Nystatin 30 ml 0 ml PO TID [facility] Last Admin: 10/27/20 07:00 Dose: 10 ml Documented by: Admin: 10/27/20 04:21 Dose: 10 ml Documented by: ZACKARY Dexamethasone (Dexamethasone Intensol) 0.5 mg PO Q6HR [facility] Last Admin: 10/27/20 11:37 Dose: 0.5 ml Documented by: Admin: 10/27/20 06:59 Dose: 0.5 ml Documented by: Admin: 10/27/20 02:48 Dose: 0.5 ml Documented by: ZACKARY Dextrose/Water (Dextrose 50% In Water) 50 ml IV ASDIRECTED PRN PRN Reason: Hypoglycemia Glucagon (Glucagen) 1 mg IM ASDIRECTED PRN PRN Reason: Hypoglycemia Hydromorphone HCl (Dilaudid) 1 mg IVPUSH Q3H PRN PRN Reason: Pain (severe 7-10) Last Admin: 10/27/20 08:44 Dose: 1 mg Documented by: GURINDER Acyclovir 1,000 mg/ Sodium (Chloride) 270 mls @ 250 mls/hr IV Q8H [facility] Last Admin: 10/27/20 11:24 Dose: 250 mls/hr Documented by: GURINDER Lactated Ringer's (Ringers, Lactated) 1,000 mls @ 200 mls/hr IV Q5H [facility] Last Admin: 10/27/20 10:27 Dose: 200 mls/hr Documented by: GURINDER Insulin Aspart (Novolog) 0 unit SUBCUT Q6H [facility]; Protocol Ketorolac Tromethamine (Toradol) 30 mg IVPUSH Q6H PRN PRN Reason: Pain Last Admin: 10/27/20 05:07 Dose: 30 mg Documented by: ZACKARY Ondansetron HCl (Zofran) 4 mg IVPUSH Q4H PRN PRN Reason: Nausea/Vomiting Sodium Chloride (Saline Flush) 2.5 ml FLUSH ASDIRECTED PRN PRN Reason: Keep Vein Open Last Admin: 10/26/20 21:49 Dose: 2.5 ml Documented by: GUERRERO Assessment/Plan Comment:: Patient is a kofi 35-year-old female admitted with herpetic gingivmatosis versus aphthous ulcers of the mouth and dehydration. 1. Oral herpetic vesicular lesions: Patient remains afebrile, negative CT neck, mild leukocytosis 11.4, some lymphadenopathy noted bilaterally in the anterior cervical chain. Pain controlled with Viscous Lidocaine 2%, dexamethasone, Toradol 30, Dilaudid 2, patient states Dilaudid has been ineffective or wears off quickly, currently anxious therefore given Ativan followed by morphine 4. Zofran 4 every 4 hours for nausea as needed LR 200 cc/h for hydration Magic mouthwash, with added minocycline to dissolve and use with Penicillin G 2.4 1x dose IM Acyclovir, 1000 g IV daily HSV pending Assesd for strep via PCR 2. Mild CAROLYNN: Creatinine 1.1, likely secondary to dehydration, patient received 2 boluses of fluids in the ER, will continue with LR at 200 cc/h. Continue to trend with daily CMP in the morning 3. Past medical history of hypertension, blood clots, anxiety, type 2 diabetes, obesity: We will resume all appropriate home medications SCDs for DVT prophylaxis, pantoprazole 40 IV for GI prophylaxis, diet n.p.o., activity as tolerated <Ravinder Choudhury - Last Filed: 10/27/20 23:16> H&P History of Present Illness - General Admit Problem/Dx: Admission Diagnosis/Problem Admission Diagnosis/Problem Dehydration - History of Present Illness Initial Comments - Free Text/Narative: I performed a history and physical exam of the patient and discussed management with resident. I have reviewed the residents note and agree with documented findings and plan unless otherwise specified in my note. Exam - Vital Signs Vital Signs: Last Vital Signs Temp 36.7 C 10/27/20 19:00 Pulse 85 10/27/20 19:00 Resp 18 10/27/20 19:00 BP 132/75 10/27/20 19:00 Pulse Ox 95 10/27/20 19:00 - Patient Data Lab Results Last 24 hrs: Laboratory Results - last 24 hr 10/26/20 10/26/20 10/27/20 Range/Units 21:40 22:51 06:00 WBC 11.43 H (4.0-11.0) K/uL RBC 4.73 (4.30-5.90) M/uL Hgb 13.0 (12.0-16.0) g/dL Hct 41.0 (36.0-46.0) % MCV 86.7 (80.0-98.0) fL MCH 27.5 (27.0-32.0) pg MCHC 31.7 (31.0-37.0) g/dL RDW Std Deviation 45.5 (28.0-62.0) fl RDW Coeff of Nicole 14 (11.0-15.0) % Plt Count 246 (150-400) K/uL MPV 9.60 (7.40-12.00) fL Neut % (Auto) 76.3 (48.0-80.0) % Lymph % (Auto) 12.9 L (16.0-40.0) % [place] % (Auto) 10.6 (0.0-15.0) % Eos % (Auto) 0.0 (0.0-7.0) % Baso % (Auto) 0.2 (0.0-1.5) % Neut # (Auto) 8.7 H (1.4-5.7) K/uL Lymph # (Auto) 1.5 (0.6-2.4) K/uL [place] # (Auto) 1.2 H (0.0-0.8) K/uL Eos # (Auto) 0.0 (0.0-0.7) K/uL Baso # (Auto) 0.0 (0.0-0.1) K/uL Nucleated RBC % 0.0 /100WBC Nucleated RBCs # 0 K/uL Sodium (136-145) mmol/L Potassium (3.5-5.1) mmol/L Chloride (98-107) mmol/L Carbon Dioxide (21.0-32.0) mmol/L BUN (7.0-18.0) mg/dL Creatinine (0.6-1.0) mg/dL Est Cr Clr Drug Dosing mL/min Estimated GFR (MDRD) ml/min Glucose (74-106) mg/dL POC Glucose (60-110) mg/dL Calcium (8.5-10.1) mg/dL Phosphorus (2.6-4.7) mg/dL Magnesium (1.8-2.4) mg/dL HCG, Qual NEGATIVE (NEG) SARS-CoV-2 RNA (MAYA) NEGATIVE (NEGATIVE) Group A Strep (PCR) (NOT DETECT) 10/27/20 10/27/20 10/27/20 Range/Units 06:00 12:04 15:55 WBC (4.0-11.0) K/uL RBC (4.30-5.90) M/uL Hgb (12.0-16.0) g/dL Hct (36.0-46.0) % MCV (80.0-98.0) fL MCH (27.0-32.0) pg MCHC (31.0-37.0) g/dL RDW Std Deviation (28.0-62.0) fl RDW Coeff of Nicole (11.0-15.0) % Plt Count (150-400) K/uL MPV (7.40-12.00) fL Neut % (Auto) (48.0-80.0) % Lymph % (Auto) (16.0-40.0) % [place] % (Auto) (0.0-15.0) % Eos % (Auto) (0.0-7.0) % Baso % (Auto) (0.0-1.5) % Neut # (Auto) (1.4-5.7) K/uL Lymph # (Auto) (0.6-2.4) K/uL [place] # (Auto) (0.0-0.8) K/uL Eos # (Auto) (0.0-0.7) K/uL Baso # (Auto) (0.0-0.1) K/uL Nucleated RBC % /100WBC Nucleated RBCs # K/uL Sodium 139 (136-145) mmol/L Potassium 4.0 (3.5-5.1) mmol/L Chloride 98 (98-107) mmol/L Carbon Dioxide 29.6 (21.0-32.0) mmol/L BUN 12 (7.0-18.0) mg/dL Creatinine 1.1 H (0.6-1.0) mg/dL Est Cr Clr Drug Dosing 99.79 mL/min Estimated GFR (MDRD) 57.2 ml/min Glucose 110 H (74-106) mg/dL POC Glucose 103 (60-110) mg/dL Calcium 8.9 (8.5-10.1) mg/dL Phosphorus 3.4 (2.6-4.7) mg/dL Magnesium 2.0 (1.8-2.4) mg/dL HCG, Qual (NEG) SARS-CoV-2 RNA (MAYA) (NEGATIVE) Group A Strep (PCR) NOT DETECTED (NOT DETECT) 10/27/20 Range/Units 16:48 WBC (4.0-11.0) K/uL RBC (4.30-5.90) M/uL Hgb (12.0-16.0) g/dL Hct (36.0-46.0) % MCV (80.0-98.0) fL MCH (27.0-32.0) pg MCHC (31.0-37.0) g/dL RDW Std Deviation (28.0-62.0) fl RDW Coeff of Nicole (11.0-15.0) % Plt Count (150-400) K/uL MPV (7.40-12.00) fL Neut % (Auto) (48.0-80.0) % Lymph % (Auto) (16.0-40.0) % [place] % (Auto) (0.0-15.0) % Eos % (Auto) (0.0-7.0) % Baso % (Auto) (0.0-1.5) % Neut # (Auto) (1.4-5.7) K/uL Lymph # (Auto) (0.6-2.4) K/uL [place] # (Auto) (0.0-0.8) K/uL Eos # (Auto) (0.0-0.7) K/uL Baso # (Auto) (0.0-0.1) K/uL Nucleated RBC % /100WBC Nucleated RBCs # K/uL Sodium (136-145) mmol/L Potassium (3.5-5.1) mmol/L Chloride (98-107) mmol/L Carbon Dioxide (21.0-32.0) mmol/L BUN (7.0-18.0) mg/dL Creatinine (0.6-1.0) mg/dL Est Cr Clr Drug Dosing mL/min Estimated GFR (MDRD) ml/min Glucose (74-106) mg/dL POC Glucose 100 (60-110) mg/dL Calcium (8.5-10.1) mg/dL Phosphorus (2.6-4.7) mg/dL Magnesium (1.8-2.4) mg/dL HCG, Qual (NEG) SARS-CoV-2 RNA (MAYA) (NEGATIVE) Group A Strep (PCR) (NOT DETECT) Result Diagrams: 10/27/20 06:00 10/27/20 06:00 Sepsis Event Note - Focused Exam Vital Signs: Vital Signs Temp Pulse Resp BP Pulse Ox 10/27/20 19:00 36.7 C 85 18 132/75 95 10/27/20 15:20 36.9 C 73 16 134/89 94 L Orders Last 24hrs: Active Orders 24 hr Category Date Time Status Patient Status [ADT] Routine ADT 10/26/20 22:53 Active Ambulate [RC] ASDIRECTED Care 10/27/20 00:50 Active Antiembolic Devices [RC] PER UNIT ROUTINE Care 10/27/20 00:51 Active Blood Glucose Check, Bedside [RC] Q6HR Care 10/27/20 12:00 Active Oxygen Therapy [RC] PRN Care 10/27/20 00:50 Active RT Aerosol Therapy [RC] ASDIRECTED Care 10/27/20 00:52 Active VTE/DVT Education [RC] PER UNIT ROUTINE Care 10/27/20 00:50 Active Vital Signs [RC] Q4H Care 10/27/20 00:50 Active Clear Liquid Diet [DIET] Diet 10/27/20 Breakfast Active CBC WITH AUTO DIFF [HEME] AM Lab 10/28/20 05:11 Ordered CBC WITH AUTO DIFF [HEME] AM Lab 10/29/20 05:11 Ordered CBC WITH AUTO DIFF [HEME] AM Lab 10/30/20 05:11 Ordered CBC WITH AUTO DIFF [HEME] AM Lab 10/31/20 05:11 Ordered CBC WITH AUTO DIFF [HEME] AM Lab 11/01/20 05:11 Ordered CMP [COMPREHENSIVE METABOLIC PN,CMP] [CHEM] AM Lab 10/28/20 05:11 Ordered CMP [COMPREHENSIVE METABOLIC PN,CMP] [CHEM] AM Lab 10/29/20 05:11 Ordered CMP [COMPREHENSIVE METABOLIC PN,CMP] [CHEM] AM Lab 10/30/20 05:11 Ordered CMP [COMPREHENSIVE METABOLIC PN,CMP] [CHEM] AM Lab 10/31/20 05:11 Ordered CMP [COMPREHENSIVE METABOLIC PN,CMP] [CHEM] AM Lab 11/01/20 05:11 Ordered HSV 1/2 PCR [REF] Stat Lab 10/26/20 23:26 Received Acyclovir [Zovirax] 1,000 mg Med 10/27/20 10:15 Active Sodium Chloride 0.9% [Normal Saline] 250 ml IV Q8H Albuterol/Ipratropium [DuoNeb 3.0-0.5 MG/3 ML] Med 10/27/20 00:50 Active 3 ml NEB Q4HRRT PRN Benzocaine [Hurricaine One 20%] Med 10/28/20 00:00 Active 0 each MUCMEM Q6HR Dextrose 50% in Water Med 10/27/20 10:01 Active 50 ml IV ASDIRECTED PRN Enoxaparin [Lovenox] Med 10/27/20 17:45 Active 40 mg SUBCUT Q24H Glucagon,Human Recombinant [GlucaGen] Med 10/27/20 10:01 Active 1 mg IM ASDIRECTED PRN Insulin Aspart [NovoLOG] Med 10/27/20 12:00 Active See Protocol SUBCUT Q6H Ketorolac [Toradol] Med 10/27/20 16:45 Active 15 mg IVPUSH Q3H PRN Labetalol [Normodyne] Med 10/28/20 09:00 Active 100 mg PO DAILY Lactated Ringers [Ringers, Lactated] 1,000 ml Med 10/27/20 10:15 Active IV Q5H Lidocaine 2% [Xylocaine 2% Viscous] Med 10/28/20 00:00 Active 20 ml PO Q6HR Lidocaine 2% [Xylocaine 2% Viscous] 30 ml Med 10/27/20 11:55 Active Alum Hydrox/Mag Hydrox/Simeth [Mag-Al Plus] 30 ml diphenhydrAMINE [Benadryl] 75 mg Nystatin [Mycostatin] 30 ml PO TID Minocycline [Minocin] Med 10/27/20 14:00 Active 100 mg PO TID Ondansetron [Zofran] Med 10/27/20 00:50 Active 4 mg IVPUSH Q4H PRN Pantoprazole [ProTONIX IV] 40 mg Med 10/28/20 09:00 Active Sodium Chloride 0.9% [Normal Saline] 10 ml IV DAILY Sertraline [Zoloft] Med 10/27/20 12:00 Active 50 mg PO DAILY dexAMETHasone [DexAMETHasone IntensoL] Med 10/28/20 09:00 Active 1 mg PO DAILY hydroCHLOROthiazide Med 10/28/20 09:00 Active 25 mg PO DAILY lamoTRIgine Med 10/27/20 12:15 Active 150 mg PO BID oxyCODONE Med 10/27/20 21:00 Active 10 mg PO Q6H PRN Sequential Compression Device [OM.PC] Per Unit Routine Oth 10/27/20 00:51 Ordered Resuscitation Status Routine Resus Stat 10/27/20 00:50 Ordered Medication Orders Albuterol/Ipratropium (Duoneb 3.0-0.5 Mg/3 Ml) 3 ml NEB Q4HRRT PRN PRN Reason: Shortness Of Breath/wheezing Benzocaine (Hurricaine One 20%) 0 each MUCMEM Q6HR [facility] Lidocaine HCl 30 ml/ Al Hydroxide/Mg Hydroxide 30 ml/Diphenhydramine HCl 75 mg/Nystatin 30 ml 0 ml PO TID [facility] Last Admin: 10/27/20 21:57 Dose: 10 ml Documented by: Admin: 10/27/20 14:35 Dose: 10 ml Documented by: GURINDER Dexamethasone (Dexamethasone Intensol) 1 mg PO DAILY [facility] Dextrose/Water (Dextrose 50% In Water) 50 ml IV ASDIRECTED PRN PRN Reason: Hypoglycemia Enoxaparin Sodium (Lovenox) 40 mg SUBCUT Q24H [facility] Last Admin: 10/27/20 18:05 Dose: 40 mg Documented by: GURINDER Glucagon (Glucagen) 1 mg IM ASDIRECTED PRN PRN Reason: Hypoglycemia Hydrochlorothiazide (Hydrochlorothiazide) 25 mg PO DAILY [facility] Acyclovir 1,000 mg/ Sodium (Chloride) 270 mls @ 250 mls/hr IV Q8H [facility] Last Admin: 10/27/20 19:10 Dose: 250 mls/hr Documented by: Infusion: 10/27/20 12:29 Dose: 250 mls/hr Documented by: Admin: 10/27/20 11:24 Dose: 250 mls/hr Documented by: GURINDER Lactated Ringer's (Ringers, Lactated) 1,000 mls @ 200 mls/hr IV Q5H [facility] Last Admin: 10/27/20 23:04 Dose: 200 mls/hr Documented by: Infusion: 10/27/20 21:38 Dose: 200 mls/hr Documented by: Admin: 10/27/20 16:38 Dose: 200 mls/hr Documented by: Infusion: 10/27/20 15:27 Dose: 200 mls/hr Documented by: Admin: 10/27/20 10:27 Dose: 200 mls/hr Documented by: GURINDER Pantoprazole Sodium 40 mg/ (Sodium Chloride) 10 mls @ 300 mls/hr IV DAILY [facility] Insulin Aspart (Novolog) 0 unit SUBCUT Q6H [facility]; Protocol Last Admin: 10/27/20 17:59 Dose: Not Given Documented by: Admin: 10/27/20 12:32 Dose: Not Given Documented by: GURINDER Ketorolac Tromethamine (Toradol) 15 mg IVPUSH Q3H PRN PRN Reason: Pain Labetalol HCl (Normodyne) 100 mg PO DAILY [facility] Lamotrigine (Lamotrigine) 150 mg PO BID [facility] Last Admin: 10/27/20 20:59 Dose: 150 mg Documented by: Admin: 10/27/20 12:32 Dose: 150 mg Documented by: GURINDER Lidocaine HCl (Xylocaine 2% Viscous) 20 ml PO Q6HR [facility] Minocycline HCl (Minocin) 100 mg PO TID [facility] Last Admin: 10/27/20 21:58 Dose: 100 mg Documented by: Admin: 10/27/20 14:35 Dose: 100 mg Documented by: GURINDER Ondansetron HCl (Zofran) 4 mg IVPUSH Q4H PRN PRN Reason: Nausea/Vomiting Oxycodone HCl (Oxycodone) 10 mg PO Q6H PRN PRN Reason: Pain (moderate 4-6) Last Admin: 10/27/20 21:52 Dose: 10 mg Documented by: ZACKARY Sertraline HCl (Zoloft) 50 mg PO DAILY [facility] Last Admin: 10/27/20 12:32 Dose: 50 mg Documented by: GURINDER Sodium Chloride (Saline Flush) 2.5 ml FLUSH ASDIRECTED PRN PRN Reason: Keep Vein Open Last Admin: 10/26/20 21:49 Dose: 2.5 ml Documented by: GUERRERO
[2020-10-27] MEDS: Sertraline 50 MG Tab PO SCH (12:32)
[2020-10-27] MEDS: Insulin Aspart 100 Units/ML 3 ML Pen SUBCUT SCH ×3 (12:32→23:45)
[2020-10-27] MEDS: lamoTRIgine 100 MG Tab PO SCH ×2 (12:32→20:59)
[2020-10-27] MEDS ORDERED: Morphine 4 MG/ML Syringe IVPUSH PRN (14:51)
[2020-10-27] MEDS ORDERED: Dexamethasone 10 MG/ML SDV IVPUSH ONE (14:51)
[2020-10-27] MEDS ORDERED: Benzocaine 20% Topical Spray UD MUCMEM ONE (16:39)
[2020-10-27] MEDS ORDERED: fentaNYL 100 MCG/2 ML SDV IVPUSH ONE (16:44)
[2020-10-27] MEDS: Lidocaine 2% Viscous Solution 15 ML Cup PO ONE (17:59)
[2020-10-27] MEDS: Enoxaparin 40 MG/0.4 ML Syringe SUBCUT SCH (18:05)
[2020-10-27] MEDS ORDERED: Benzocaine 20% Topical Spray UD ONE (19:45)
[2020-10-27] MEDS ORDERED: Lidocaine 2% Viscous Solution 15 ML Cup ONE (19:45)
[2020-10-27] MEDS: oxyCODONE 5 MG Tab PO PRN (21:52)
[2020-10-27] MEDS: Benzocaine 20% Topical Spray UD MUCMEM SCH (23:51)
[2020-10-27] MEDS: Lidocaine 2% Viscous Solution 100 ML Bottle PO SCH (23:52)
[2020-10-28] MEDS: Ketorolac 30 MG/ML SDV IVPUSH PRN ×5 (00:04→23:47)
[2020-10-28] MEDS ORDERED: fentaNYL 250 MCG/5 ML SDV IVPUSH ONE (04:04)
[2020-10-28] MEDS ORDERED: fentaNYL 100 MCG/2 ML SDV IVPUSH ONE (04:15)
[2020-10-28] MEDS: Lactated Ringers 1,000 ML IV SCH ×5 (05:30→23:48)
[2020-10-28] MEDS: oxyCODONE 5 MG Tab PO PRN (05:31)
[2020-10-28 05:43] LABS: BLOOD UREA NITROGEN,BUN 14 mg/dL (7.0-18.0); CARBON DIOXIDE,CO2 29.3 mmol/L (21.0-32.0); CHLORIDE,CL 103 mmol/L (98-107); GLUCOSE RANDOM 115 mg/dL (74-106); SODIUM,NA 141 mmol/L (136-145)
[2020-10-28] MEDS: DIPHENHYDRAMINE PO SCH ×4 (06:27)
[2020-10-28] MEDS: LIDOCAINE 2% PO SCH ×4 (06:27)
[2020-10-28] MEDS: MAG HYDROX PO SCH ×4 (06:27)
[2020-10-28] MEDS: SIMETH PO SCH ×4 (06:27)
[2020-10-28] MEDS: ALUM HYDROX PO SCH ×4 (06:27)
[2020-10-28] MEDS: [UNRECOGNIZED DRUG - OTHER] PO SCH ×4 (06:27)
[2020-10-28] MEDS: Insulin Aspart 100 Units/ML 3 ML Pen SUBCUT SCH ×3 (06:30→20:10)
[2020-10-28] MEDS: Benzocaine 20% Topical Spray UD MUCMEM SCH ×6 (06:32→23:20)
[2020-10-28] MEDS: Lidocaine 2% Viscous Solution 100 ML Bottle PO SCH (06:33)
[2020-10-28] MEDS ORDERED: Dexamethasone 1 MG/ML Oral Drops 30 ML Bottle PO SCH ×2 (09:00)
[2020-10-28] MEDS: Sertraline 50 MG Tab PO SCH (09:36)
[2020-10-28] MEDS: lamoTRIgine 100 MG Tab PO SCH ×2 (09:36→20:11)
[2020-10-28] MEDS: Pantoprazole 40 MG in Sodium Chloride 0.9% 10 ML IV SCH (09:38)
[2020-10-28] MEDS: Labetalol 100 MG Tab PO SCH (09:38)
[2020-10-28] MEDS: Hydrochlorothiazide 25 MG Tab PO SCH (09:39)
[2020-10-28] MEDS: Lidocaine 2% Viscous Solution 15 ML Cup PO ONE (10:57)
[2020-10-28] MEDS ORDERED: Non-Formulary Medication 1 Each BUCCAL PRN (10:59)
[2020-10-28] MEDS: oxyCODONE 5 MG Tab PO SCH ×3 (12:05→23:19)
[2020-10-28] MEDS ORDERED: Morphine 2 MG/ML SYRINGE IVPUSH ONE (12:41)
--- NOTE | 2020-10-28 14:01 | PCM.PN ---
<Dolores Barriga - Last Filed: 10/28/20 13:56> - General Info Date of Service: 10/28/20 Admission Dx/Problem (Free Text): Admission Diagnosis/Problem Admission Diagnosis/Problem Dehydration Subjective Update: admitted with herpetic gingival stomatosis, there were no overnight events. This morning pt states she is much Improved, able to talk, resting comfortably, able to tolerate liquid diet and requesting apple sauce. Functional Status: Reports: Pain Controlled, Tolerating Diet - Review of Systems General: Reports: No Symptoms HEENT: Reports: No Symptoms, Other (less painful mouth) Pulmonary: Reports: No Symptoms Cardiovascular: Reports: No Symptoms Gastrointestinal: Reports: No Symptoms Genitourinary: Reports: No Symptoms Musculoskeletal: Reports: No Symptoms Skin: Reports: No Symptoms Neurological: Reports: No Symptoms Psychiatric: Reports: No Symptoms - Patient Data Vitals - Most Recent: Last Vital Signs Temp 96.9 F 10/28/20 12:00 Pulse 73 10/28/20 12:00 Resp 16 10/28/20 12:00 BP 126/79 10/28/20 12:00 Pulse Ox 96 10/28/20 12:00 Weight - Most Recent: 183.569 kg I&O - Last 24 Hours: Intake & Output 10/27/20 10/28/20 10/28/20 22:59 06:59 14:59 Intake Total 250 900 Output Total 500 1000 Balance -250 -100 Lab Results Last 24 Hours: Laboratory Results - last 24 hr 10/27/20 10/27/20 10/27/20 Range/Units 15:55 16:48 23:41 WBC (4.0-11.0) K/uL RBC (4.30-5.90) M/uL Hgb (12.0-16.0) g/dL Hct (36.0-46.0) % MCV (80.0-98.0) fL MCH (27.0-32.0) pg MCHC (31.0-37.0) g/dL RDW Std Deviation (28.0-62.0) fl RDW Coeff of Nicole (11.0-15.0) % Plt Count (150-400) K/uL MPV (7.40-12.00) fL Add Manual Diff Neutrophils % (Manual) (48.0-80.0) % Band Neutrophils % % Lymphocytes % (Manual) (16.0-40.0) % Monocytes % (Manual) (0.0-15.0) % Blast Cells % % Absolute Seg Neuts (1.4-5.7) Band Neutrophils # Lymphocytes # (Manual) (0.6-2.4) Monocytes # (Manual) (0.0-0.8) Absolute Blast Cells Sodium (136-145) mmol/L Potassium (3.5-5.1) mmol/L Chloride (98-107) mmol/L Carbon Dioxide (21.0-32.0) mmol/L BUN (7.0-18.0) mg/dL Creatinine (0.6-1.0) mg/dL Est Cr Clr Drug Dosing mL/min Estimated GFR (MDRD) ml/min Glucose (74-106) mg/dL POC Glucose 100 123 H (60-110) mg/dL Calcium (8.5-10.1) mg/dL Total Bilirubin (0.2-1.0) mg/dL AST (15-37) IU/L ALT (14-63) IU/L Alkaline Phosphatase (46-116) U/L Total Protein (6.4-8.2) g/dL Albumin (3.4-5.0) g/dL Globulin (2.6-4.0) g/dL Albumin/Globulin Ratio (0.9-1.6) Group A Strep (PCR) NOT DETECTED (NOT DETECT) 10/28/20 10/28/20 10/28/20 Range/Units 04:50 04:50 05:59 WBC 5.69 (4.0-11.0) K/uL RBC 4.41 (4.30-5.90) M/uL Hgb 12.4 (12.0-16.0) g/dL Hct 37.2 (36.0-46.0) % MCV 84.4 (80.0-98.0) fL MCH 28.1 (27.0-32.0) pg MCHC 33.3 (31.0-37.0) g/dL RDW Std Deviation 41.4 (28.0-62.0) fl RDW Coeff of Nicole 14 (11.0-15.0) % Plt Count 247 (150-400) K/uL MPV 9.50 (7.40-12.00) fL Add Manual Diff YES Neutrophils % (Manual) 67 (48.0-80.0) % Band Neutrophils % 7 % Lymphocytes % (Manual) 21 (16.0-40.0) % Monocytes % (Manual) 4 (0.0-15.0) % Blast Cells % 1 % Absolute Seg Neuts 3.8 (1.4-5.7) Band Neutrophils # 0.4 Lymphocytes # (Manual) 1.2 (0.6-2.4) Monocytes # (Manual) 0.2 (0.0-0.8) Absolute Blast Cells 0.1 Sodium 141 (136-145) mmol/L Potassium 4.0 (3.5-5.1) mmol/L Chloride 103 (98-107) mmol/L Carbon Dioxide 29.3 (21.0-32.0) mmol/L BUN 14 (7.0-18.0) mg/dL Creatinine 0.8 (0.6-1.0) mg/dL Est Cr Clr Drug Dosing 137.21 mL/min Estimated GFR (MDRD) > 60.0 ml/min Glucose 115 H (74-106) mg/dL POC Glucose 107 (60-110) mg/dL Calcium 8.8 (8.5-10.1) mg/dL Total Bilirubin 0.4 (0.2-1.0) mg/dL AST 28 (15-37) IU/L ALT 34 (14-63) IU/L Alkaline Phosphatase 66 (46-116) U/L Total Protein 7.5 (6.4-8.2) g/dL Albumin 2.8 L (3.4-5.0) g/dL Globulin 4.7 H (2.6-4.0) g/dL Albumin/Globulin Ratio 0.6 L (0.9-1.6) Group A Strep (PCR) (NOT DETECT) 10/28/20 Range/Units 12:22 WBC (4.0-11.0) K/uL RBC (4.30-5.90) M/uL Hgb (12.0-16.0) g/dL Hct (36.0-46.0) % MCV (80.0-98.0) fL MCH (27.0-32.0) pg MCHC (31.0-37.0) g/dL RDW Std Deviation (28.0-62.0) fl RDW Coeff of Nicole (11.0-15.0) % Plt Count (150-400) K/uL MPV (7.40-12.00) fL Add Manual Diff Neutrophils % (Manual) (48.0-80.0) % Band Neutrophils % % Lymphocytes % (Manual) (16.0-40.0) % Monocytes % (Manual) (0.0-15.0) % Blast Cells % % Absolute Seg Neuts (1.4-5.7) Band Neutrophils # Lymphocytes # (Manual) (0.6-2.4) Monocytes # (Manual) (0.0-0.8) Absolute Blast Cells Sodium (136-145) mmol/L Potassium (3.5-5.1) mmol/L Chloride (98-107) mmol/L Carbon Dioxide (21.0-32.0) mmol/L BUN (7.0-18.0) mg/dL Creatinine (0.6-1.0) mg/dL Est Cr Clr Drug Dosing mL/min Estimated GFR (MDRD) ml/min Glucose (74-106) mg/dL POC Glucose 122 H (60-110) mg/dL Calcium (8.5-10.1) mg/dL Total Bilirubin (0.2-1.0) mg/dL AST (15-37) IU/L ALT (14-63) IU/L Alkaline Phosphatase (46-116) U/L Total Protein (6.4-8.2) g/dL Albumin (3.4-5.0) g/dL Globulin (2.6-4.0) g/dL Albumin/Globulin Ratio (0.9-1.6) Group A Strep (PCR) (NOT DETECT) Med Orders - Current: Current Medications Albuterol/Ipratropium (Duoneb 3.0-0.5 Mg/3 Ml) 3 ml NEB Q4HRRT PRN PRN Reason: Shortness Of Breath/wheezing Benzocaine (Hurricaine One 20%) 0 each MUCMEM Q6HR SONALI Last Admin: 10/28/20 07:55 Dose: 2 each Documented by: Dexamethasone (Dexamethasone Intensol) 6 mg PO DAILY [facility] Dextrose/Water (Dextrose 50% In Water) 50 ml IV ASDIRECTED PRN PRN Reason: Hypoglycemia Enoxaparin Sodium (Lovenox) 40 mg SUBCUT Q24H [facility] Last Admin: 10/27/20 18:05 Dose: 40 mg Documented by: Glucagon (Glucagen) 1 mg IM ASDIRECTED PRN PRN Reason: Hypoglycemia Hydrochlorothiazide (Hydrochlorothiazide) 25 mg PO DAILY [facility] Last Admin: 10/28/20 09:39 Dose: 25 mg Documented by: Acyclovir 1,000 mg/ Sodium (Chloride) 270 mls @ 250 mls/hr IV Q8H [facility] Last Admin: 10/28/20 10:10 Dose: 250 mls/hr Documented by: Lactated Ringer's (Ringers, Lactated) 1,000 mls @ 125 mls/hr IV Q5H [facility] Last Admin: 10/28/20 12:08 Dose: 200 mls/hr Documented by: Pantoprazole Sodium 40 mg/ (Sodium Chloride) 10 mls @ 300 mls/hr IV DAILY [facility] Last Admin: 10/28/20 09:38 Dose: 300 mls/hr Documented by: Insulin Aspart (Novolog) 0 unit SUBCUT Q6H [facility]; Protocol Last Admin: 10/28/20 13:11 Dose: Not Given Documented by: Ketorolac Tromethamine (Toradol) 15 mg IVPUSH Q3H PRN PRN Reason: Pain Last Admin: 10/28/20 10:02 Dose: 15 mg Documented by: Labetalol HCl (Normodyne) 100 mg PO DAILY [facility] Last Admin: 10/28/20 09:38 Dose: 100 mg Documented by: Lamotrigine (Lamotrigine) 150 mg PO BID [facility] Last Admin: 10/28/20 09:36 Dose: 150 mg Documented by: Non-Formulary Medication (Nf Drug) 0 each BUCCAL Q3H PRN PRN Reason: oral pain Ondansetron HCl (Zofran) 4 mg IVPUSH Q4H PRN PRN Reason: Nausea/Vomiting Oxycodone HCl (Oxycodone) 10 mg PO Q6H [facility] Last Admin: 10/28/20 12:05 Dose: 10 mg Documented by: Sertraline HCl (Zoloft) 50 mg PO DAILY [facility] Last Admin: 10/28/20 09:36 Dose: 50 mg Documented by: Sodium Chloride (Saline Flush) 2.5 ml FLUSH ASDIRECTED PRN PRN Reason: Keep Vein Open Last Admin: 10/26/20 21:49 Dose: 2.5 ml Documented by: Discontinued Medications Benzocaine (Hurricaine One 20%) 2 each MUCMEM ONETIME ONE Stop: 10/27/20 16:40 Last Admin: 10/27/20 17:59 Dose: 2 each Documented by: Benzocaine (Hurricaine One 20%) Confirm Administered Dose 2 each .ROUTE .STK-MED ONE Stop: 10/27/20 19:46 Last Admin: 10/27/20 19:54 Dose: Not Given Documented by: Lidocaine HCl 30 ml/ Al Hydroxide/Mg Hydroxide 30 ml/Diphenhydramine HCl 75 mg/Nystatin 30 ml 0 ml PO TID [facility] Last Admin: 10/27/20 07:00 Dose: 10 ml Documented by: Lidocaine HCl 30 ml/ Al Hydroxide/Mg Hydroxide 30 ml/Diphenhydramine HCl 75 mg/Nystatin 30 ml 0 ml PO TID [facility] Last Admin: 10/28/20 06:27 Dose: 10 ml Documented by: Dexamethasone (Dexamethasone Intensol) 0.5 mg PO Q6HR [facility] Last Admin: 10/27/20 11:37 Dose: 0.5 ml Documented by: Dexamethasone (Decadron) 10 mg IVPUSH ONETIME ONE Stop: 10/27/20 14:52 Last Admin: 10/27/20 15:17 Dose: 10 mg Documented by: Dexamethasone (Dexamethasone Intensol) 6 mg PO DAILY [facility] Dexamethasone (Dexamethasone Intensol) 1 mg PO DAILY [facility] Fentanyl (Sublimaze) 25 mcg IVPUSH ONETIME ONE Stop: 10/27/20 16:45 Last Admin: 10/27/20 18:04 Dose: 25 mcg Documented by: Fentanyl (Sublimaze) 25 mcg IVPUSH ONETIME ONE Stop: 10/28/20 04:05 Last Admin: 10/28/20 07:48 Dose: Not Given Documented by: Fentanyl (Sublimaze) 25 mcg IVPUSH ONETIME ONE Stop: 10/28/20 04:16 Last Admin: 10/28/20 04:18 Dose: 25 mcg Documented by: Hydromorphone HCl (Dilaudid) 0.5 mg IVPUSH ONETIME ONE Stop: 10/26/20 21:24 Last Admin: 10/26/20 21:49 Dose: 0.5 mg Documented by: Hydromorphone HCl (Dilaudid) 0.5 mg IVPUSH ONETIME ONE Stop: 10/26/20 23:45 Last Admin: 10/26/20 23:55 Dose: 0.5 mg Documented by: Hydromorphone HCl (Dilaudid) 0.5 mg IVPUSH Q3H PRN PRN Reason: Pain (severe 7-10) Last Admin: 10/27/20 01:51 Dose: 0.5 mg Documented by: Hydromorphone HCl (Dilaudid) 1 mg IVPUSH Q3H PRN PRN Reason: Pain (severe 7-10) Last Admin: 10/27/20 05:17 Dose: 1 mg Documented by: Hydromorphone HCl (Dilaudid) 1 mg IVPUSH Q3H PRN PRN Reason: Pain (severe 7-10) Last Admin: 10/27/20 08:44 Dose: 1 mg Documented by: Sodium Chloride (Normal Saline) 1,000 mls @ 999 mls/hr IV .Bolus ONE Stop: 10/26/20 22:24 Last Admin: 10/26/20 21:47 Dose: 999 mls/hr Documented by: Sodium Chloride (Normal Saline) 1,000 mls @ 999 mls/hr IV .Bolus ONE Stop: 10/26/20 22:23 Last Admin: 10/26/20 22:39 Dose: 999 mls/hr Documented by: Lactated Ringer's (Ringers, Lactated) 1,000 mls @ 125 mls/hr IV ASDIRECTED [facility] Last Admin: 10/27/20 02:22 Dose: 125 mls/hr Documented by: Ketorolac Tromethamine (Toradol) 30 mg IVPUSH ONETIME ONE Stop: 10/26/20 21:24 Last Admin: 10/26/20 21:49 Dose: 30 mg Documented by: Ketorolac Tromethamine (Toradol) 30 mg IVPUSH Q6H PRN PRN Reason: Pain Last Admin: 10/27/20 11:51 Dose: 30 mg Documented by: Lidocaine HCl (Xylocaine 2% Viscous) 20 ml PO ONETIME ONE Stop: 10/26/20 22:43 Last Admin: 10/26/20 22:47 Dose: Not Given Documented by: Lidocaine HCl (Xylocaine 2% Viscous) Confirm Administered Dose 30 ml .ROUTE .STK-MED ONE Stop: 10/26/20 22:44 Last Admin: 10/26/20 22:47 Dose: Not Given Documented by: Lidocaine HCl (Xylocaine 2% Viscous) 30 ml PO ONETIME ONE Stop: 10/26/20 22:45 Last Admin: 10/26/20 22:47 Dose: Not Given Documented by: Lidocaine HCl (Xylocaine 2% Viscous) 20 ml PO ONETIME ONE Stop: 10/26/20 22:45 Last Admin: 10/26/20 22:46 Dose: 20 ml Documented by: Lidocaine HCl (Xylocaine 2% Viscous) 20 ml PO ONETIME ONE Stop: 10/27/20 16:40 Last Admin: 10/28/20 10:57 Dose: 20 ml Documented by: Lidocaine HCl (Xylocaine 2% Viscous) 20 ml PO Q6HR [facility] Last Admin: 10/28/20 06:33 Dose: Not Given Documented by: Lidocaine HCl (Xylocaine 2% Viscous) Confirm Administered Dose 15 ml .ROUTE .STK-MED ONE Stop: 10/27/20 19:46 Last Admin: 10/27/20 19:54 Dose: Not Given Documented by: Lorazepam (Ativan) 2 mg IVPUSH ONETIME ONE Stop: 10/27/20 10:12 Last Admin: 10/27/20 10:24 Dose: 2 mg Documented by: Minocycline HCl (Minocin) 100 mg PO TID [facility] Last Admin: 10/28/20 06:26 Dose: 100 mg Documented by: Morphine Sulfate (Morphine) 4 mg IVPUSH Q3H PRN PRN Reason: Pain Last Admin: 10/27/20 15:13 Dose: 4 mg Documented by: Morphine Sulfate (Morphine) 2 mg IVPUSH ONETIME ONE Stop: 10/28/20 12:42 Ondansetron HCl (Zofran) 4 mg IVPUSH ONETIME ONE Stop: 10/26/20 21:24 Last Admin: 10/26/20 21:49 Dose: 4 mg Documented by: Oxycodone HCl (Oxycodone) 10 mg PO Q6H PRN PRN Reason: Pain (moderate 4-6) Last Admin: 10/28/20 05:31 Dose: 10 mg Documented by: Penicillin G Benzathine (Bicillin L-A) 2.4 millunits IM ONETIME ONE Stop: 10/27/20 10:38 Last Admin: 10/27/20 11:26 Dose: 2.4 millunits Documented by: Sodium Chloride (Saline Flush) 10 ml FLUSH ASDIRECTED PRN PRN Reason: Keep Vein Open Last Admin: 10/26/20 21:49 Dose: 10 ml Documented by: - Exam Quality Assessment: DVT Prophylaxis General: Alert, Oriented, Cooperative, No Acute Distress HEENT: Pupils Equal, Pupils Reactive, EOMI, Mucous Membr. Moist/[place] Neck: Supple Lungs: Clear to Auscultation, Normal Respiratory Effort Cardiovascular: Regular Rate, Regular Rhythm GI/Abdominal Exam: Normal Bowel Sounds, Soft, Non-Tender, No Organomegaly, No Distention, No Abnormal Bruit, No Mass Extremities: Normal Inspection, Normal Range of Motion, Non-Tender, No Pedal Edema, Normal Capillary Refill Peripheral Pulses: 2+: Radial (L), Radial (R), Dorsalis Pedis (L), Dorsalis Pedis (R) Skin: Warm, Dry, Intact Neurological: No New Focal Deficit Psy/Mental Status: Alert, Normal Affect, Normal Mood Sepsis Event Note - Evaluation Sepsis Screening Result: No Definite Risk - Focused Exam Vital Signs: Vital Signs Temp Pulse Pulse Resp BP BP Pulse Ox 10/28/20 12:00 96.9 F 73 16 126/79 96 10/28/20 09:38 76 154/84 H 10/28/20 04:00 97.3 F 76 18 154/84 H 95 - Problem List Review Problem List Initiated/Reviewed/Updated: Yes - My Orders Last 24 Hours: My Active Orders 10/27/20 16:45 Ketorolac [Toradol] 15 mg IVPUSH Q3H PRN 10/27/20 17:45 Enoxaparin [Lovenox] 40 mg SUBCUT Q24H 10/28/20 00:00 Benzocaine [Hurricaine One 20%] 0 each MUCMEM Q6HR 10/28/20 09:00 Labetalol [Normodyne] 100 mg PO DAILY Pantoprazole [ProTONIX IV] 40 mg Sodium Chloride 0.9% [Normal Saline] 10 ml IV DAILY hydroCHLOROthiazide 25 mg PO DAILY 10/29/20 05:11 CBC WITH AUTO DIFF [HEME] AM CMP [COMPREHENSIVE METABOLIC PN,CMP] [CHEM] AM 10/30/20 05:11 CBC WITH AUTO DIFF [HEME] AM CMP [COMPREHENSIVE METABOLIC PN,CMP] [CHEM] AM 10/31/20 05:11 CBC WITH AUTO DIFF [HEME] AM CMP [COMPREHENSIVE METABOLIC PN,CMP] [CHEM] AM 11/01/20 05:11 CBC WITH AUTO DIFF [HEME] AM CMP [COMPREHENSIVE METABOLIC PN,CMP] [CHEM] AM - Plan Plan:: Patient is a kofi 35-year-old female admitted with herpetic gingivmatosis ve rsus aphthous ulcers of the mouth and dehydration. 1. Oral herpetic vesicular lesions: Patient remains afebrile, negative CT neck, resolved wbc 5.7, Pain controlled with Viscous Lidocaine 2% crricane pray as dental balls, 6mg dexamethasone solution, 1x morphine given this morning, -10 oxycodone sonali q6h for pain Zofran 4 every 4 hours for nausea as needed continue LR 125 cc/h for hydration, with clear liquid diet Miracle mouthwash, with added minocycline to dissolve and use with Penicillin G 2.4 1x dose IM given yesterday Acyclovir, 1000 g IV daily HSV pending strep negative 2. Mild CAROLYNN: -resolved 3. Past medical history of hypertension, blood clots, anxiety, type 2 diabetes, obesity: We will resume all appropriate home medications SCDs for DVT prophylaxis 40 lovenox subq q24h, pantoprazole 40 IV for GI prophylaxis, diet clear liquid, activity as tolerated <Ravinder Choudhury - Last Filed: 10/31/20 12:50> - Patient Data Vitals - Most Recent: Last Vital Signs Temp 36.5 C 10/31/20 08:00 Pulse 76 10/31/20 08:39 Resp 18 10/31/20 08:00 BP 147/100 H 10/31/20 08:39 Pulse Ox 94 L 10/31/20 08:00 I&O - Last 24 Hours: Intake & Output 10/30/20 10/31/20 10/31/20 22:59 06:59 14:59 Intake Total 1810 1000 Output Total 1200 1800 Balance 610 -800 Lab Results Last 24 Hours: Laboratory Results - last 24 hr 01/14/21 01/15/21 01/15/21 Range/Units 17:22 04:44 04:44 WBC 8.89 (4.0-11.0) K/uL RBC 4.52 (4.30-5.90) M/uL Hgb 12.4 (12.0-16.0) g/dL Hct 38.8 (36.0-46.0) % MCV 85.8 (80.0-98.0) fL MCH 27.4 (27.0-32.0) pg MCHC 32.0 (31.0-37.0) g/dL RDW Std Deviation 42.7 (28.0-62.0) fl RDW Coeff of Nicole 14 (11.0-15.0) % Plt Count 273 (150-400) K/uL MPV 9.80 (7.40-12.00) fL Neut % (Auto) 47.1 L (48.0-80.0) % Lymph % (Auto) 41.8 H (16.0-40.0) % [place] % (Auto) 10.0 (0.0-15.0) % Eos % (Auto) 0.7 (0.0-7.0) % Baso % (Auto) 0.4 (0.0-1.5) % Neut # (Auto) 4.2 (1.4-5.7) K/uL Lymph # (Auto) 3.7 H (0.6-2.4) K/uL [place] # (Auto) 0.9 H (0.0-0.8) K/uL Eos # (Auto) 0.1 (0.0-0.7) K/uL Baso # (Auto) 0.0 (0.0-0.1) K/uL Nucleated RBC % 0.0 /100WBC Nucleated RBCs # 0 K/uL Sodium 140 (136-145) mmol/L Potassium 3.5 (3.5-5.1) mmol/L Chloride 102 (98-107) mmol/L Carbon Dioxide 30.8 (21.0-32.0) mmol/L BUN 11 (7.0-18.0) mg/dL Creatinine 1.0 (0.6-1.0) mg/dL Est Cr Clr Drug Dosing 109.63 mL/min Estimated GFR (MDRD) > 60.0 ml/min Glucose 96 (74-106) mg/dL POC Glucose 96 (60-110) mg/dL Calcium 8.8 (8.5-10.1) mg/dL Total Bilirubin 0.5 (0.2-1.0) mg/dL AST 51 H (15-37) IU/L ALT 88 H (14-63) IU/L Alkaline Phosphatase 70 (46-116) U/L Total Protein 7.3 (6.4-8.2) g/dL Albumin 2.8 L (3.4-5.0) g/dL Globulin 4.5 H (2.6-4.0) g/dL Albumin/Globulin Ratio 0.6 L (0.9-1.6) Med Orders - Current: Current Medications Albuterol/Ipratropium (Duoneb 3.0-0.5 Mg/3 Ml) 3 ml NEB Q4HRRT PRN PRN Reason: Shortness Of Breath/wheezing Benzocaine (Hurricaine One 20%) 0 each MUCMEM Q6HR [facility] Last Admin: 10/31/20 06:39 Dose: Not Given Documented by: Lidocaine HCl 30 ml/ Al Hydroxide/Mg Hydroxide 30 ml/Diphenhydramine HCl 75 mg/Nystatin 30 ml 0 ml PO Q3H PRN PRN Reason: Pain Dexamethasone (Dexamethasone Intensol) 6 mg PO DAILY [facility] Last Admin: 10/31/20 08:43 Dose: 6 mg Documented by: Dextrose/Water (Dextrose 50% In Water) 50 ml IV ASDIRECTED PRN PRN Reason: Hypoglycemia Enoxaparin Sodium (Lovenox) 40 mg SUBCUT Q24H [facility] Last Admin: 10/30/20 18:20 Dose: 40 mg Documented by: Glucagon (Glucagen) 1 mg IM ASDIRECTED PRN PRN Reason: Hypoglycemia Hydrochlorothiazide (Hydrochlorothiazide) 37.5 mg PO DAILY [facility] Last Admin: 10/31/20 08:40 Dose: 37.5 mg Documented by: Pantoprazole Sodium 40 mg/ (Sodium Chloride) 10 mls @ 300 mls/hr IV DAILY [facility] Last Admin: 10/31/20 08:42 Dose: 300 mls/hr Documented by: Acyclovir 1,000 mg/ Sodium (Chloride) 270 mls @ 270 mls/hr IV Q8H [facility] Last Admin: 10/31/20 09:34 Dose: 270 mls/hr Documented by: Insulin Aspart (Novolog) 0 unit SUBCUT TIDAC [facility]; Protocol Last Admin: 10/31/20 06:59 Dose: Not Given Documented by: Ketorolac Tromethamine (Toradol) 15 mg IVPUSH Q6H PRN PRN Reason: Pain Last Admin: 10/29/20 21:08 Dose: 15 mg Documented by: Labetalol HCl (Normodyne) 100 mg PO DAILY [facility] Last Admin: 10/31/20 08:39 Dose: 100 mg Documented by: Lamotrigine (Lamotrigine) 150 mg PO BID [facility] Last Admin: 10/31/20 08:41 Dose: 150 mg Documented by: Morphine Sulfate (Morphine) 2 mg IVPUSH BEDTIME PRN PRN Reason: Pain Last Admin: 10/29/20 20:25 Dose: 2 mg Documented by: Morphine Sulfate (Morphine) 2 mg IVPUSH Q3H PRN PRN Reason: Pain Last Admin: 10/30/20 23:03 Dose: 2 mg Documented by: Biotene Oral Rinse 0 each .XX QID PRN PRN Reason: dry mouth Last Admin: 10/30/20 22:56 Dose: 1 each Documented by: Ondansetron HCl (Zofran) 4 mg IVPUSH Q4H PRN PRN Reason: Nausea/Vomiting Last Admin: 10/31/20 02:57 Dose: 4 mg Documented by: Oxycodone HCl (Oxycodone) 10 mg PO Q6H PRN PRN Reason: Pain Last Admin: 10/31/20 02:53 Dose: 10 mg Documented by: Sertraline HCl (Zoloft) 50 mg PO DAILY [facility] Last Admin: 10/31/20 08:39 Dose: 50 mg Documented by: Sodium Chloride (Saline Flush) 2.5 ml FLUSH ASDIRECTED PRN PRN Reason: Keep Vein Open Last Admin: 10/26/20 21:49 Dose: 2.5 ml Documented by: Discontinued Medications Benzocaine (Hurricaine One 20%) 2 each MUCMEM ONETIME ONE Stop: 10/27/20 16:40 Last Admin: 10/27/20 17:59 Dose: 2 each Documented by: Benzocaine (Hurricaine One 20%) Confirm Administered Dose 2 each .ROUTE .STK-MED ONE Stop: 10/27/20 19:46 Last Admin: 10/27/20 19:54 Dose: Not Given Documented by: Lidocaine HCl 30 ml/ Al Hydroxide/Mg Hydroxide 30 ml/Diphenhydramine HCl 75 mg/Nystatin 30 ml 0 ml PO TID [facility] Last Admin: 10/27/20 07:00 Dose: 10 ml Documented by: Lidocaine HCl 30 ml/ Al Hydroxide/Mg Hydroxide 30 ml/Diphenhydramine HCl 75 mg/Nystatin 30 ml 0 ml PO TID [facility] Last Admin: 10/29/20 09:49 Dose: Not Given Documented by: Dexamethasone (Dexamethasone Intensol) 0.5 mg PO Q6HR [facility] Last Admin: 10/27/20 11:37 Dose: 0.5 ml Documented by: Dexamethasone (Decadron) 10 mg IVPUSH ONETIME ONE Stop: 10/27/20 14:52 Last Admin: 10/27/20 15:17 Dose: 10 mg Documented by: Dexamethasone (Dexamethasone Intensol) 6 mg PO DAILY [facility] Dexamethasone (Dexamethasone Intensol) 1 mg PO DAILY [facility] Last Admin: 10/28/20 20:41 Dose: Not Given Documented by: Fentanyl (Sublimaze) 25 mcg IVPUSH ONETIME ONE Stop: 10/27/20 16:45 Last Admin: 10/27/20 18:04 Dose: 25 mcg Documented by: Fentanyl (Sublimaze) 25 mcg IVPUSH ONETIME ONE Stop: 10/28/20 04:05 Last Admin: 10/28/20 07:48 Dose: Not Given Documented by: Fentanyl (Sublimaze) 25 mcg IVPUSH ONETIME ONE Stop: 10/28/20 04:16 Last Admin: 10/28/20 04:18 Dose: 25 mcg Documented by: Hydrochlorothiazide (Hydrochlorothiazide) 25 mg PO DAILY [facility] Last Admin: 10/30/20 08:57 Dose: 25 mg Documented by: Hydrochlorothiazide (Hydrochlorothiazide) 12.5 mg PO ONETIME ONE Stop: 10/30/20 11:01 Last Admin: 10/30/20 11:24 Dose: 12.5 mg Documented by: Hydromorphone HCl (Dilaudid) 0.5 mg IVPUSH ONETIME ONE Stop: 10/26/20 21:24 Last Admin: 10/26/20 21:49 Dose: 0.5 mg Documented by: Hydromorphone HCl (Dilaudid) 0.5 mg IVPUSH ONETIME ONE Stop: 10/26/20 23:45 Last Admin: 10/26/20 23:55 Dose: 0.5 mg Documented by: Hydromorphone HCl (Dilaudid) 0.5 mg IVPUSH Q3H PRN PRN Reason: Pain (severe 7-10) Last Admin: 10/27/20 01:51 Dose: 0.5 mg Documented by: Hydromorphone HCl (Dilaudid) 1 mg IVPUSH Q3H PRN PRN Reason: Pain (severe 7-10) Last Admin: 10/27/20 05:17 Dose: 1 mg Documented by: Hydromorphone HCl (Dilaudid) 1 mg IVPUSH Q3H PRN PRN Reason: Pain (severe 7-10) Last Admin: 10/27/20 08:44 Dose: 1 mg Documented by: Sodium Chloride (Normal Saline) 1,000 mls @ 999 mls/hr IV .Bolus ONE Stop: 10/26/20 22:24 Last Admin: 10/26/20 21:47 Dose: 999 mls/hr Documented by: Sodium Chloride (Normal Saline) 1,000 mls @ 999 mls/hr IV .Bolus ONE Stop: 10/26/20 22:23 Last Admin: 10/26/20 22:39 Dose: 999 mls/hr Documented by: Lactated Ringer's (Ringers, Lactated) 1,000 mls @ 125 mls/hr IV ASDIRECTED [facility] Last Admin: 10/27/20 02:22 Dose: 125 mls/hr Documented by: Acyclovir 1,000 mg/ Sodium (Chloride) 270 mls @ 250 mls/hr IV Q8H [facility] Last Admin: 10/30/20 10:08 Dose: 250 mls/hr Documented by: Lactated Ringer's (Ringers, Lactated) 1,000 mls @ 125 mls/hr IV Q5H [facility] Last Admin: 10/29/20 16:22 Dose: 125 mls/hr Documented by: Lactated Ringer's (Ringers, Lactated) 1,000 mls @ 999 mls/hr IV .BOLUS ONE Stop: 10/30/20 11:13 Last Admin: 10/30/20 11:14 Dose: 999 mls/hr Documented by: Insulin Aspart (Novolog) 0 unit SUBCUT Q6H [facility]ONALI; Protocol Last Admin: 10/29/20 12:58 Dose: Not Given Documented by: Ketorolac Tromethamine (Toradol) 30 mg IVPUSH ONETIME ONE Stop: 10/26/20 21:24 Last Admin: 10/26/20 21:49 Dose: 30 mg Documented by: Ketorolac Tromethamine (Toradol) 30 mg IVPUSH Q6H PRN PRN Reason: Pain Last Admin: 10/27/20 11:51 Dose: 30 mg Documented by: Ketorolac Tromethamine (Toradol) 15 mg IVPUSH Q3H PRN PRN Reason: Pain Last Admin: 10/29/20 08:22 Dose: 15 mg Documented by: Ketorolac Tromethamine (Toradol) 15 mg IVPUSH Q6H PRN PRN Reason: Pain Lidocaine HCl (Xylocaine 2% Viscous) 20 ml PO ONETIME ONE Stop: 10/26/20 22:43 Last Admin: 10/26/20 22:47 Dose: Not Given Documented by: Lidocaine HCl (Xylocaine 2% Viscous) Confirm Administered Dose 30 ml .ROUTE .STK-MED ONE Stop: 10/26/20 22:44 Last Admin: 10/26/20 22:47 Dose: Not Given Documented by: Lidocaine HCl (Xylocaine 2% Viscous) 30 ml PO ONETIME ONE Stop: 10/26/20 22:45 Last Admin: 10/26/20 22:47 Dose: Not Given Documented by: Lidocaine HCl (Xylocaine 2% Viscous) 20 ml PO ONETIME ONE Stop: 10/26/20 22:45 Last Admin: 10/26/20 22:46 Dose: 20 ml Documented by: Lidocaine HCl (Xylocaine 2% Viscous) 20 ml PO ONETIME ONE Stop: 10/27/20 16:40 Last Admin: 10/28/20 10:57 Dose: 20 ml Documented by: Lidocaine HCl (Xylocaine 2% Viscous) 20 ml PO Q6HR [facility] Last Admin: 10/28/20 06:33 Dose: Not Given Documented by: Lidocaine HCl (Xylocaine 2% Viscous) Confirm Administered Dose 15 ml .ROUTE .STK-MED ONE Stop: 10/27/20 19:46 Last Admin: 10/27/20 19:54 Dose: Not Given Documented by: Lorazepam (Ativan) 2 mg IVPUSH ONETIME ONE Stop: 10/27/20 10:12 Last Admin: 10/27/20 10:24 Dose: 2 mg Documented by: Lorazepam (Ativan) 2 mg IVPUSH ONETIME ONE Stop: 10/29/20 10:42 Last Admin: 10/29/20 10:51 Dose: 2 mg Documented by: Minocycline HCl (Minocin) 100 mg PO TID [facility] Last Admin: 10/28/20 06:26 Dose: 100 mg Documented by: Morphine Sulfate (Morphine) 4 mg IVPUSH Q3H PRN PRN Reason: Pain Last Admin: 10/27/20 15:13 Dose: 4 mg Documented by: Morphine Sulfate (Morphine) 2 mg IVPUSH ONETIME ONE Stop: 10/28/20 12:42 Last Admin: 10/28/20 16:22 Dose: 2 mg Documented by: Morphine Sulfate (Morphine) 2 mg IVPUSH ONETIME ONE Stop: 10/29/20 00:58 Last Admin: 10/29/20 01:14 Dose: 2 mg Documented by: Non-Formulary Medication (Nf Drug) 0 each BUCCAL Q3H PRN PRN Reason: oral pain Last Admin: 10/28/20 20:26 Dose: 6 each Documented by: Ondansetron HCl (Zofran) 4 mg IVPUSH ONETIME ONE Stop: 10/26/20 21:24 Last Admin: 10/26/20 21:49 Dose: 4 mg Documented by: Oxycodone HCl (Oxycodone) 10 mg PO Q6H PRN PRN Reason: Pain (moderate 4-6) Last Admin: 10/28/20 05:31 Dose: 10 mg Documented by: Oxycodone HCl (Oxycodone) 10 mg PO Q6H [facility] Last Admin: 10/29/20 05:38 Dose: 10 mg Documented by: Oxycodone HCl (Oxycodone) 10 mg PO Q6H PRN PRN Reason: Pain Penicillin G Benzathine (Bicillin L-A) 2.4 millunits IM ONETIME ONE Stop: 10/27/20 10:38 Last Admin: 10/27/20 11:26 Dose: 2.4 millunits Documented by: Potassium Chloride (Klor-Con M20) 40 meq PO ONETIME ONE Stop: 10/30/20 10:15 Last Admin: 10/30/20 11:25 Dose: 40 meq Documented by: Sodium Chloride (Saline Flush) 10 ml FLUSH ASDIRECTED PRN PRN Reason: Keep Vein Open Last Admin: 10/26/20 21:49 Dose: 10 ml Documented by: Sepsis Event Note - Focused Exam Vital Signs: Vital Signs Temp Pulse Pulse Resp BP BP Pulse Ox 10/31/20 08:39 76 147/100 H 10/31/20 08:00 36.5 C 76 18 147/100 H 94 L 10/31/20 04:28 36.9 C 67 17 139/78 95 - Plan Plan:: I have seen and evaluated the patient. I have discussed findings and treatment plan with resident. I agree with the assessment and plan in the following note.
[2020-10-28] MEDS: Dexamethasone 1 MG/ML Oral Drops 30 ML Bottle PO SCH (14:42)
[2020-10-28] MEDS: Enoxaparin 40 MG/0.4 ML Syringe SUBCUT SCH (18:19)
[2020-10-29] MEDS: Insulin Aspart 100 Units/ML 3 ML Pen SUBCUT SCH ×4 (00:14→16:47)
[2020-10-29] MEDS ORDERED: Morphine 2 MG/ML SYRINGE IVPUSH ONE (00:57)
[2020-10-29] MEDS: Lactated Ringers 1,000 ML IV SCH ×4 (04:48→16:22)
[2020-10-29] MEDS: Benzocaine 20% Topical Spray UD MUCMEM SCH ×3 (05:38→18:23)
[2020-10-29] MEDS: oxyCODONE 5 MG Tab PO SCH (05:38)
[2020-10-29 07:18] LABS: BLOOD UREA NITROGEN,BUN 16 mg/dL (7.0-18.0); CARBON DIOXIDE,CO2 32.3 mmol/L (21.0-32.0); CHLORIDE,CL 104 mmol/L (98-107); GLUCOSE RANDOM 93 mg/dL (74-106); POTASSIUM,K 3.9 mmol/L (3.5-5.1); SODIUM,NA 143 mmol/L (136-145)
[2020-10-29] MEDS: lamoTRIgine 100 MG Tab PO SCH ×2 (08:12→20:24)
[2020-10-29] MEDS: Hydrochlorothiazide 25 MG Tab PO SCH (08:12)
[2020-10-29] MEDS: Sertraline 50 MG Tab PO SCH (08:12)
[2020-10-29] MEDS: Pantoprazole 40 MG in Sodium Chloride 0.9% 10 ML IV SCH (08:13)
[2020-10-29] MEDS: Ketorolac 30 MG/ML SDV IVPUSH PRN (08:22)
[2020-10-29] MEDS: Labetalol 100 MG Tab PO SCH ×2 (08:23→16:15)
[2020-10-29] MEDS: Dexamethasone 1 MG/ML Oral Drops 30 ML Bottle PO SCH (08:26)
[2020-10-29] MEDS ORDERED: Diphenhydramine/Lidocaine/Nystatin Suspension 237 ML Bottle PO SCH (09:00)
[2020-10-29] MEDS: LIDOCAINE 2% PO SCH ×8 (09:31→09:49)
[2020-10-29] MEDS: DIPHENHYDRAMINE PO SCH ×8 (09:31→09:49)
[2020-10-29] MEDS: SIMETH PO SCH ×8 (09:31→09:49)
[2020-10-29] MEDS: ALUM HYDROX PO SCH ×8 (09:31→09:49)
[2020-10-29] MEDS: MAG HYDROX PO SCH ×8 (09:31→09:49)
[2020-10-29] MEDS: [UNRECOGNIZED DRUG - OTHER] PO SCH ×8 (09:31→09:49)
[2020-10-29] MEDS ORDERED: Ketorolac 15 MG/ML SDV IVPUSH PRN ×2 (09:40→15:00)
[2020-10-29] MEDS ORDERED: Morphine 2 MG/ML SYRINGE IVPUSH PRN (09:45)
[2020-10-29] MEDS ORDERED: DIPHENHYDRAMINE PO PRN ×4 (09:52)
[2020-10-29] MEDS ORDERED: ALUM HYDROX PO PRN ×4 (09:52)
[2020-10-29] MEDS ORDERED: [UNRECOGNIZED DRUG - OTHER] PO PRN ×4 (09:52)
[2020-10-29] MEDS ORDERED: SIMETH PO PRN ×4 (09:52)
[2020-10-29] MEDS ORDERED: LIDOCAINE 2% PO PRN ×4 (09:52)
[2020-10-29] MEDS ORDERED: MAG HYDROX PO PRN ×4 (09:52)
[2020-10-29] MEDS ORDERED: oxyCODONE 5 MG Tab PO PRN (09:54)
[2020-10-29] MEDS ORDERED: LORazepam 2 MG/ML SDV IVPUSH ONE (10:41)
--- NOTE | 2020-10-29 10:54 | PCM.PN ---
- General Info Date of Service: 10/29/20 Admission Dx/Problem (Free Text): Admission Diagnosis/Problem Admission Diagnosis/Problem Dehydration Subjective Update: admitted with herpetic gingival stomatosis, overnight was uncomfortable and requested pain medication was given morphine one-time and states that she slept better. This morning pt states she is much Improved, able to talk, but anxious and concerned the pain will return. Has been able to tolerate liquid diet and requesting to possibly try advancing diet. Pain is well controlled at the moment, denies any shortness of breath, fever, is alert and oriented x3. Functional Status: Reports: Pain Controlled, Tolerating Diet - Review of Systems General: Reports: No Symptoms HEENT: Reports: Dysphasia (Significant improvement, milder discomfort) Pulmonary: Reports: No Symptoms Cardiovascular: Reports: No Symptoms Gastrointestinal: Reports: No Symptoms Genitourinary: Reports: No Symptoms Musculoskeletal: Reports: No Symptoms Skin: Reports: No Symptoms Neurological: Reports: No Symptoms Psychiatric: Reports: No Symptoms - Patient Data Vitals - Most Recent: Last Vital Signs Temp 99.5 F 10/29/20 07:33 Pulse 59 L 10/29/20 07:33 Resp 14 10/29/20 07:33 BP 115/59 L 10/29/20 07:33 Pulse Ox 96 10/29/20 07:33 Weight - Most Recent: 404 lb 11.2 oz I&O - Last 24 Hours: Intake & Output 10/28/20 10/29/20 10/29/20 22:59 06:59 14:59 Intake Total 600 600 Output Total 800 Balance -200 600 Lab Results Last 24 Hours: Laboratory Results - last 24 hr 10/28/20 10/28/20 10/28/20 Range/Units 12:22 17:30 23:25 WBC (4.0-11.0) K/uL RBC (4.30-5.90) M/uL Hgb (12.0-16.0) g/dL Hct (36.0-46.0) % MCV (80.0-98.0) fL MCH (27.0-32.0) pg MCHC (31.0-37.0) g/dL RDW Std Deviation (28.0-62.0) fl RDW Coeff of Nicole (11.0-15.0) % Plt Count (150-400) K/uL MPV (7.40-12.00) fL Add Manual Diff Neutrophils % (Manual) (48.0-80.0) % Band Neutrophils % % Lymphocytes % (Manual) (16.0-40.0) % Monocytes % (Manual) (0.0-15.0) % Basophils % (Manual) (0.0-1.5) % Metamyelocytes % % Myelocytes % % Nucleated RBC % /100WBC Absolute Seg Neuts (1.4-5.7) Band Neutrophils # Lymphocytes # (Manual) (0.6-2.4) Monocytes # (Manual) (0.0-0.8) Basophils # (Manual) (0.0-0.1) Absolute Metamyelocyte Absolute Myelocytes Nucleated RBCs # K/uL Sodium (136-145) mmol/L Potassium (3.5-5.1) mmol/L Chloride (98-107) mmol/L Carbon Dioxide (21.0-32.0) mmol/L BUN (7.0-18.0) mg/dL Creatinine (0.6-1.0) mg/dL Est Cr Clr Drug Dosing mL/min Estimated GFR (MDRD) ml/min Glucose (74-106) mg/dL POC Glucose 122 H 138 H 164 H (60-110) mg/dL Calcium (8.5-10.1) mg/dL Total Bilirubin (0.2-1.0) mg/dL AST (15-37) IU/L ALT (14-63) IU/L Alkaline Phosphatase (46-116) U/L Total Protein (6.4-8.2) g/dL Albumin (3.4-5.0) g/dL Globulin (2.6-4.0) g/dL Albumin/Globulin Ratio (0.9-1.6) 10/29/20 10/29/20 10/29/20 Range/Units 05:43 06:34 06:34 WBC 7.95 (4.0-11.0) K/uL RBC 4.13 L (4.30-5.90) M/uL Hgb 11.3 L (12.0-16.0) g/dL Hct 35.6 L (36.0-46.0) % MCV 86.2 (80.0-98.0) fL MCH 27.4 (27.0-32.0) pg MCHC 31.7 (31.0-37.0) g/dL RDW Std Deviation 44.3 (28.0-62.0) fl RDW Coeff of Nicole 14 (11.0-15.0) % Plt Count 247 (150-400) K/uL MPV 9.00 (7.40-12.00) fL Add Manual Diff YES Neutrophils % (Manual) 45 L (48.0-80.0) % Band Neutrophils % 2 % Lymphocytes % (Manual) 41 H (16.0-40.0) % Monocytes % (Manual) 9 (0.0-15.0) % Basophils % (Manual) 1 (0.0-1.5) % Metamyelocytes % 1 % Myelocytes % 1 % Nucleated RBC % 0.0 /100WBC Absolute Seg Neuts 3.6 (1.4-5.7) Band Neutrophils # 0.2 Lymphocytes # (Manual) 3.3 H (0.6-2.4) Monocytes # (Manual) 0.7 (0.0-0.8) Basophils # (Manual) 0.1 (0.0-0.1) Absolute Metamyelocyte 0.1 Absolute Myelocytes 0.1 Nucleated RBCs # 0 K/uL Sodium 143 (136-145) mmol/L Potassium 3.9 (3.5-5.1) mmol/L Chloride 104 (98-107) mmol/L Carbon Dioxide 32.3 H (21.0-32.0) mmol/L BUN 16 (7.0-18.0) mg/dL Creatinine 1.0 (0.6-1.0) mg/dL Est Cr Clr Drug Dosing 109.77 mL/min Estimated GFR (MDRD) > 60.0 ml/min Glucose 93 (74-106) mg/dL POC Glucose 88 (60-110) mg/dL Calcium 8.8 (8.5-10.1) mg/dL Total Bilirubin 0.4 (0.2-1.0) mg/dL AST 29 (15-37) IU/L ALT 39 (14-63) IU/L Alkaline Phosphatase 60 (46-116) U/L Total Protein 7.0 (6.4-8.2) g/dL Albumin 2.7 L (3.4-5.0) g/dL Globulin 4.3 H (2.6-4.0) g/dL Albumin/Globulin Ratio 0.6 L (0.9-1.6) Med Orders - Current: Current Medications Albuterol/Ipratropium (Duoneb 3.0-0.5 Mg/3 Ml) 3 ml NEB Q4HRRT PRN PRN Reason: Shortness Of Breath/wheezing Benzocaine (Hurricaine One 20%) 0 each MUCMEM Q6HR [facility] Last Admin: 10/29/20 05:38 Dose: 2 each Documented by: Lidocaine HCl 30 ml/ Al Hydroxide/Mg Hydroxide 30 ml/Diphenhydramine HCl 75 mg/Nystatin 30 ml 0 ml PO Q3H PRN PRN Reason: Pain Dexamethasone (Dexamethasone Intensol) 6 mg PO DAILY [facility] Last Admin: 10/29/20 08:26 Dose: 2 mg Documented by: Dextrose/Water (Dextrose 50% In Water) 50 ml IV ASDIRECTED PRN PRN Reason: Hypoglycemia Enoxaparin Sodium (Lovenox) 40 mg SUBCUT Q24H [facility] Last Admin: 10/28/20 18:19 Dose: 40 mg Documented by: Glucagon (Glucagen) 1 mg IM ASDIRECTED PRN PRN Reason: Hypoglycemia Hydrochlorothiazide (Hydrochlorothiazide) 25 mg PO DAILY [facility] Last Admin: 10/29/20 08:12 Dose: 25 mg Documented by: Acyclovir 1,000 mg/ Sodium (Chloride) 270 mls @ 250 mls/hr IV Q8H [facility] Last Admin: 10/29/20 10:33 Dose: 250 mls/hr Documented by: Lactated Ringer's (Ringers, Lactated) 1,000 mls @ 125 mls/hr IV Q5H [facility] Last Admin: 10/29/20 08:11 Dose: 125 mls/hr Documented by: Pantoprazole Sodium 40 mg/ (Sodium Chloride) 10 mls @ 300 mls/hr IV DAILY [facility] Last Admin: 10/29/20 08:13 Dose: 300 mls/hr Documented by: Insulin Aspart (Novolog) 0 unit SUBCUT Q6H [facility]; Protocol Last Admin: 10/29/20 06:37 Dose: Not Given Documented by: Ketorolac Tromethamine (Toradol) 15 mg IVPUSH Q6H PRN PRN Reason: Pain Labetalol HCl (Normodyne) 100 mg PO DAILY [facility] Last Admin: 10/29/20 08:23 Dose: Not Given Documented by: Lamotrigine (Lamotrigine) 150 mg PO BID [facility] Last Admin: 10/29/20 08:12 Dose: 150 mg Documented by: Morphine Sulfate (Morphine) 2 mg IVPUSH BEDTIME PRN PRN Reason: Pain Ondansetron HCl (Zofran) 4 mg IVPUSH Q4H PRN PRN Reason: Nausea/Vomiting Oxycodone HCl (Oxycodone) 10 mg PO Q6H PRN PRN Reason: Pain Sertraline HCl (Zoloft) 50 mg PO DAILY [facility] Last Admin: 10/29/20 08:12 Dose: 50 mg Documented by: Sodium Chloride (Saline Flush) 2.5 ml FLUSH ASDIRECTED PRN PRN Reason: Keep Vein Open Last Admin: 10/26/20 21:49 Dose: 2.5 ml Documented by: Discontinued Medications Benzocaine (Hurricaine One 20%) 2 each MUCMEM ONETIME ONE Stop: 10/27/20 16:40 Last Admin: 10/27/20 17:59 Dose: 2 each Documented by: Benzocaine (Hurricaine One 20%) Confirm Administered Dose 2 each .ROUTE .STK-MED ONE Stop: 10/27/20 19:46 Last Admin: 10/27/20 19:54 Dose: Not Given Documented by: Lidocaine HCl 30 ml/ Al Hydroxide/Mg Hydroxide 30 ml/Diphenhydramine HCl 75 mg/Nystatin 30 ml 0 ml PO TID [facility] Last Admin: 10/27/20 07:00 Dose: 10 ml Documented by: Lidocaine HCl 30 ml/ Al Hydroxide/Mg Hydroxide 30 ml/Diphenhydramine HCl 75 mg/Nystatin 30 ml 0 ml PO TID [facility] Last Admin: 10/29/20 09:49 Dose: Not Given Documented by: Dexamethasone (Dexamethasone Intensol) 0.5 mg PO Q6HR [facility] Last Admin: 10/27/20 11:37 Dose: 0.5 ml Documented by: Dexamethasone (Decadron) 10 mg IVPUSH ONETIME ONE Stop: 10/27/20 14:52 Last Admin: 10/27/20 15:17 Dose: 10 mg Documented by: Dexamethasone (Dexamethasone Intensol) 6 mg PO DAILY [facility] Dexamethasone (Dexamethasone Intensol) 1 mg PO DAILY [facility] Last Admin: 10/28/20 20:41 Dose: Not Given Documented by: Fentanyl (Sublimaze) 25 mcg IVPUSH ONETIME ONE Stop: 10/27/20 16:45 Last Admin: 10/27/20 18:04 Dose: 25 mcg Documented by: Fentanyl (Sublimaze) 25 mcg IVPUSH ONETIME ONE Stop: 10/28/20 04:05 Last Admin: 10/28/20 07:48 Dose: Not Given Documented by: Fentanyl (Sublimaze) 25 mcg IVPUSH ONETIME ONE Stop: 10/28/20 04:16 Last Admin: 10/28/20 04:18 Dose: 25 mcg Documented by: Hydromorphone HCl (Dilaudid) 0.5 mg IVPUSH ONETIME ONE Stop: 10/26/20 21:24 Last Admin: 10/26/20 21:49 Dose: 0.5 mg Documented by: Hydromorphone HCl (Dilaudid) 0.5 mg IVPUSH ONETIME ONE Stop: 10/26/20 23:45 Last Admin: 10/26/20 23:55 Dose: 0.5 mg Documented by: Hydromorphone HCl (Dilaudid) 0.5 mg IVPUSH Q3H PRN PRN Reason: Pain (severe 7-10) Last Admin: 10/27/20 01:51 Dose: 0.5 mg Documented by: Hydromorphone HCl (Dilaudid) 1 mg IVPUSH Q3H PRN PRN Reason: Pain (severe 7-10) Last Admin: 10/27/20 05:17 Dose: 1 mg Documented by: Hydromorphone HCl (Dilaudid) 1 mg IVPUSH Q3H PRN PRN Reason: Pain (severe 7-10) Last Admin: 10/27/20 08:44 Dose: 1 mg Documented by: Sodium Chloride (Normal Saline) 1,000 mls @ 999 mls/hr IV .Bolus ONE Stop: 10/26/20 22:24 Last Admin: 10/26/20 21:47 Dose: 999 mls/hr Documented by: Sodium Chloride (Normal Saline) 1,000 mls @ 999 mls/hr IV .Bolus ONE Stop: 10/26/20 22:23 Last Admin: 10/26/20 22:39 Dose: 999 mls/hr Documented by: Lactated Ringer's (Ringers, Lactated) 1,000 mls @ 125 mls/hr IV ASDIRECTED [facility] Last Admin: 10/27/20 02:22 Dose: 125 mls/hr Documented by: Ketorolac Tromethamine (Toradol) 30 mg IVPUSH ONETIME ONE Stop: 10/26/20 21:24 Last Admin: 10/26/20 21:49 Dose: 30 mg Documented by: Ketorolac Tromethamine (Toradol) 30 mg IVPUSH Q6H PRN PRN Reason: Pain Last Admin: 10/27/20 11:51 Dose: 30 mg Documented by: Ketorolac Tromethamine (Toradol) 15 mg IVPUSH Q3H PRN PRN Reason: Pain Last Admin: 10/29/20 08:22 Dose: 15 mg Documented by: Ketorolac Tromethamine (Toradol) 15 mg IVPUSH Q6H PRN PRN Reason: Pain Lidocaine HCl (Xylocaine 2% Viscous) 20 ml PO ONETIME ONE Stop: 10/26/20 22:43 Last Admin: 10/26/20 22:47 Dose: Not Given Documented by: Lidocaine HCl (Xylocaine 2% Viscous) Confirm Administered Dose 30 ml .ROUTE .STK-MED ONE Stop: 10/26/20 22:44 Last Admin: 10/26/20 22:47 Dose: Not Given Documented by: Lidocaine HCl (Xylocaine 2% Viscous) 30 ml PO ONETIME ONE Stop: 10/26/20 22:45 Last Admin: 10/26/20 22:47 Dose: Not Given Documented by: Lidocaine HCl (Xylocaine 2% Viscous) 20 ml PO ONETIME ONE Stop: 10/26/20 22:45 Last Admin: 10/26/20 22:46 Dose: 20 ml Documented by: Lidocaine HCl (Xylocaine 2% Viscous) 20 ml PO ONETIME ONE Stop: 10/27/20 16:40 Last Admin: 10/28/20 10:57 Dose: 20 ml Documented by: Lidocaine HCl (Xylocaine 2% Viscous) 20 ml PO Q6HR [facility] Last Admin: 10/28/20 06:33 Dose: Not Given Documented by: Lidocaine HCl (Xylocaine 2% Viscous) Confirm Administered Dose 15 ml .ROUTE .STK-MED ONE Stop: 10/27/20 19:46 Last Admin: 10/27/20 19:54 Dose: Not Given Documented by: Lorazepam (Ativan) 2 mg IVPUSH ONETIME ONE Stop: 10/27/20 10:12 Last Admin: 10/27/20 10:24 Dose: 2 mg Documented by: Lorazepam (Ativan) 2 mg IVPUSH ONETIME ONE Stop: 10/29/20 10:42 Minocycline HCl (Minocin) 100 mg PO TID [facility] Last Admin: 10/28/20 06:26 Dose: 100 mg Documented by: Morphine Sulfate (Morphine) 4 mg IVPUSH Q3H PRN PRN Reason: Pain Last Admin: 10/27/20 15:13 Dose: 4 mg Documented by: Morphine Sulfate (Morphine) 2 mg IVPUSH ONETIME ONE Stop: 10/28/20 12:42 Last Admin: 10/28/20 16:22 Dose: 2 mg Documented by: Morphine Sulfate (Morphine) 2 mg IVPUSH ONETIME ONE Stop: 10/29/20 00:58 Last Admin: 10/29/20 01:14 Dose: 2 mg Documented by: Non-Formulary Medication (Nf Drug) 0 each BUCCAL Q3H PRN PRN Reason: oral pain Last Admin: 10/28/20 20:26 Dose: 6 each Documented by: Ondansetron HCl (Zofran) 4 mg IVPUSH ONETIME ONE Stop: 10/26/20 21:24 Last Admin: 10/26/20 21:49 Dose: 4 mg Documented by: Oxycodone HCl (Oxycodone) 10 mg PO Q6H PRN PRN Reason: Pain (moderate 4-6) Last Admin: 10/28/20 05:31 Dose: 10 mg Documented by: Oxycodone HCl (Oxycodone) 10 mg PO Q6H [facility] Last Admin: 10/29/20 05:38 Dose: 10 mg Documented by: Oxycodone HCl (Oxycodone) 10 mg PO Q6H PRN PRN Reason: Pain Penicillin G Benzathine (Bicillin L-A) 2.4 millunits IM ONETIME ONE Stop: 10/27/20 10:38 Last Admin: 10/27/20 11:26 Dose: 2.4 millunits Documented by: Sodium Chloride (Saline Flush) 10 ml FLUSH ASDIRECTED PRN PRN Reason: Keep Vein Open Last Admin: 10/26/20 21:49 Dose: 10 ml Documented by: - Exam Quality Assessment: Supplemental Oxygen, DVT Prophylaxis General: Alert, Oriented, Cooperative, Mild Distress HEENT: Pupils Equal, Pupils Reactive, EOMI, Mucous Membr. Moist/Christine Neck: Supple Lungs: Clear to Auscultation, Normal Respiratory Effort Cardiovascular: Regular Rate, Regular Rhythm GI/Abdominal Exam: Normal Bowel Sounds, Soft, Non-Tender Extremities: Normal Inspection, Normal Range of Motion, No Pedal Edema, Normal Capillary Refill Peripheral Pulses: 2+: Radial (L), Radial (R), Dorsalis Pedis (L), Dorsalis Pedis (R) Skin: Warm, Dry Wound/Incisions: Healing Well Neurological: No New Focal Deficit Psy/Mental Status: Alert, Normal Affect, Normal Mood Sepsis Event Note - Evaluation Sepsis Screening Result: No Definite Risk - Focused Exam Vital Signs: Vital Signs Temp Pulse Resp BP BP Pulse Ox 10/29/20 07:33 99.5 F 59 L 14 115/59 L 96 10/29/20 04:00 97.8 F 64 18 166/97 H 92 L 10/29/20 00:00 96.9 F 71 18 167/84 H 96 - Problem List Review Problem List Initiated/Reviewed/Updated: Yes - My Orders Last 24 Hours: My Active Orders 10/30/20 05:11 CBC WITH AUTO DIFF [HEME] AM CMP [COMPREHENSIVE METABOLIC PN,CMP] [CHEM] AM 10/31/20 05:11 CBC WITH AUTO DIFF [HEME] AM CMP [COMPREHENSIVE METABOLIC PN,CMP] [CHEM] AM 11/01/20 05:11 CBC WITH AUTO DIFF [HEME] AM CMP [COMPREHENSIVE METABOLIC PN,CMP] [CHEM] AM - Plan Plan:: Patient is a kofi 35-year-old female admitted with herpetic gingivmatosis versus aphthous ulcers of the mouth and dehydration. 1. Oral herpetic vesicular lesions: Patient remains afebrile, negative CT neck, resolved wbc 7.9, lesions have significantly reduced in size, and started to disappear One-time Ativan as patient is anxious 6mg dexamethasone solution, oxycodone 10 mg every 6 hours as needed and Toradol 15 as needed -Bedtime morphine as needed to help patient sleep Zofran 4 every 4 hours for nausea as needed continue LR 125 cc/h for hydration, advance to soft mechanical diet Miracle mouthwash every 3 hours as needed Acyclovir, 1000 g IV daily every 8 hours, total 7 days HSV pending We will test for HIV patient has no previous history of outbreaks strep was negative Discontinued dental balls consisting of viscous lidocaine and benzocaine 2. Past medical history of hypertension, blood clots, anxiety, type 2 diabetes, obesity: We will resume all appropriate home medications SCDs for DVT prophylaxis 40 lovenox subq q24h, pantoprazole 40 IV for GI prophylaxis, diet clear liquid, activity as tolerated
[2020-10-29] MEDS: oxyCODONE 5 MG Tab PO PRN ×2 (16:20→22:39)
[2020-10-29] MEDS: Enoxaparin 40 MG/0.4 ML Syringe SUBCUT SCH (16:49)
[2020-10-30] MEDS: Morphine 2 MG/ML SYRINGE IVPUSH PRN ×6 (00:51→23:03)
[2020-10-30] MEDS: Benzocaine 20% Topical Spray UD MUCMEM SCH ×4 (00:51→18:57)
[2020-10-30 05:36] LABS: BLOOD UREA NITROGEN,BUN 13 mg/dL (7.0-18.0); CARBON DIOXIDE,CO2 33.1 mmol/L (21.0-32.0); CHLORIDE,CL 103 mmol/L (98-107); GLUCOSE RANDOM 84 mg/dL (74-106); POTASSIUM,K 3.4 mmol/L (3.5-5.1); SODIUM,NA 143 mmol/L (136-145)
[2020-10-30] MEDS: Insulin Aspart 100 Units/ML 3 ML Pen SUBCUT SCH ×3 (07:38→17:22)
[2020-10-30] MEDS: Pantoprazole 40 MG in Sodium Chloride 0.9% 10 ML IV SCH (08:41)
[2020-10-30] MEDS: Dexamethasone 1 MG/ML Oral Drops 30 ML Bottle PO SCH (08:48)
[2020-10-30] MEDS: lamoTRIgine 100 MG Tab PO SCH ×2 (08:55→20:22)
[2020-10-30] MEDS: Labetalol 100 MG Tab PO SCH (08:56)
[2020-10-30] MEDS: Sertraline 50 MG Tab PO SCH (08:56)
[2020-10-30] MEDS: Hydrochlorothiazide 25 MG Tab PO SCH (08:57)
--- NOTE | 2020-10-30 09:56 | PCM.PN ---
- General Info Date of Service: 10/30/20 Admission Dx/Problem (Free Text): Admission Diagnosis/Problem Admission Diagnosis/Problem Dehydration Subjective Update: Pt was admitted with herpetic gingival stomatosis, states she slept well with bedtime morphine.This morning pt states she still has discomfort with tolerating soft mechanical diet, but is better with respect to being able to speak. Has been able to tolerate liquid diet and requesting to possibly try advancing diet. Pain is well controlled at the moment, denies any shortness of breath, fever, is alert and oriented x3. Functional Status: Reports: Pain Controlled, Tolerating Diet (Clear liquid diet plan to advance as tolerated) - Review of Systems General: Reports: No Symptoms HEENT: Reports: No Symptoms Pulmonary: Reports: No Symptoms Cardiovascular: Reports: No Symptoms. Denies: Chest Pain, Palpitations Gastrointestinal: Reports: No Symptoms Genitourinary: Reports: No Symptoms Musculoskeletal: Reports: No Symptoms Skin: Reports: Other (Dry mouth) Neurological: Reports: No Symptoms Psychiatric: Reports: No Symptoms - Patient Data Vitals - Most Recent: Last Vital Signs Temp 97.7 F 10/30/20 06:59 Pulse 80 10/30/20 08:56 Resp 16 10/30/20 06:59 BP 175/93 H 10/30/20 08:56 Pulse Ox 95 10/30/20 06:59 Weight - Most Recent: 404 lb 11.206 oz I&O - Last 24 Hours: Intake & Output 10/29/20 10/30/20 10/30/20 22:59 06:59 14:59 Intake Total 5650 2675 450 Output Total 800 800 Balance 4850 1875 450 Lab Results Last 24 Hours: Laboratory Results - last 24 hr 10/29/20 10/29/20 10/29/20 Range/Units 06:34 12:58 16:46 WBC (4.0-11.0) K/uL RBC (4.30-5.90) M/uL Hgb (12.0-16.0) g/dL Hct (36.0-46.0) % MCV (80.0-98.0) fL MCH (27.0-32.0) pg MCHC (31.0-37.0) g/dL RDW Std Deviation (28.0-62.0) fl RDW Coeff of Nicole (11.0-15.0) % Plt Count (150-400) K/uL MPV (7.40-12.00) fL Neut % (Auto) (48.0-80.0) % Lymph % (Auto) (16.0-40.0) % [place] % (Auto) (0.0-15.0) % Eos % (Auto) (0.0-7.0) % Baso % (Auto) (0.0-1.5) % Neut # (Auto) (1.4-5.7) K/uL Lymph # (Auto) (0.6-2.4) K/uL [place] # (Auto) (0.0-0.8) K/uL Eos # (Auto) (0.0-0.7) K/uL Baso # (Auto) (0.0-0.1) K/uL Nucleated RBC % /100WBC Nucleated RBCs # K/uL Sodium (136-145) mmol/L Potassium (3.5-5.1) mmol/L Chloride (98-107) mmol/L Carbon Dioxide (21.0-32.0) mmol/L BUN (7.0-18.0) mg/dL Creatinine (0.6-1.0) mg/dL Est Cr Clr Drug Dosing mL/min Estimated GFR (MDRD) ml/min Glucose (74-106) mg/dL POC Glucose 103 92 (60-110) mg/dL Calcium (8.5-10.1) mg/dL Total Bilirubin (0.2-1.0) mg/dL AST (15-37) IU/L ALT (14-63) IU/L Alkaline Phosphatase (46-116) U/L Total Protein (6.4-8.2) g/dL Albumin (3.4-5.0) g/dL Globulin (2.6-4.0) g/dL Albumin/Globulin Ratio (0.9-1.6) HIV 1&2 Ag/Ab, 4th Gen < 0.1 (<1.0) INDEX 10/30/20 10/30/20 10/30/20 Range/Units 04:44 04:44 06:05 WBC 9.41 (4.0-11.0) K/uL RBC 4.25 L (4.30-5.90) M/uL Hgb 11.6 L (12.0-16.0) g/dL Hct 36.6 (36.0-46.0) % MCV 86.1 (80.0-98.0) fL MCH 27.3 (27.0-32.0) pg MCHC 31.7 (31.0-37.0) g/dL RDW Std Deviation 43.3 (28.0-62.0) fl RDW Coeff of Nicole 14 (11.0-15.0) % Plt Count 276 (150-400) K/uL MPV 9.10 (7.40-12.00) fL Neut % (Auto) 44.4 L (48.0-80.0) % Lymph % (Auto) 44.5 H (16.0-40.0) % [place] % (Auto) 10.0 (0.0-15.0) % Eos % (Auto) 0.4 (0.0-7.0) % Baso % (Auto) 0.7 (0.0-1.5) % Neut # (Auto) 4.2 (1.4-5.7) K/uL Lymph # (Auto) 4.2 H (0.6-2.4) K/uL [place] # (Auto) 0.9 H (0.0-0.8) K/uL Eos # (Auto) 0.0 (0.0-0.7) K/uL Baso # (Auto) 0.1 (0.0-0.1) K/uL Nucleated RBC % 0.0 /100WBC Nucleated RBCs # 0 K/uL Sodium 143 (136-145) mmol/L Potassium 3.4 L (3.5-5.1) mmol/L Chloride 103 (98-107) mmol/L Carbon Dioxide 33.1 H (21.0-32.0) mmol/L BUN 13 (7.0-18.0) mg/dL Creatinine 1.0 (0.6-1.0) mg/dL Est Cr Clr Drug Dosing 109.77 mL/min Estimated GFR (MDRD) > 60.0 ml/min Glucose 84 (74-106) mg/dL POC Glucose 84 (60-110) mg/dL Calcium 8.6 (8.5-10.1) mg/dL Total Bilirubin 0.4 (0.2-1.0) mg/dL AST 31 (15-37) IU/L ALT 49 (14-63) IU/L Alkaline Phosphatase 64 (46-116) U/L Total Protein 7.0 (6.4-8.2) g/dL Albumin 2.8 L (3.4-5.0) g/dL Globulin 4.2 H (2.6-4.0) g/dL Albumin/Globulin Ratio 0.7 L (0.9-1.6) HIV 1&2 Ag/Ab, 4th Gen (<1.0) INDEX Med Orders - Current: Current Medications Albuterol/Ipratropium (Duoneb 3.0-0.5 Mg/3 Ml) 3 ml NEB Q4HRRT PRN PRN Reason: Shortness Of Breath/wheezing Benzocaine (Hurricaine One 20%) 0 each MUCMEM Q6HR [facility] Last Admin: 10/30/20 05:23 Dose: Not Given Documented by: Lidocaine HCl 30 ml/ Al Hydroxide/Mg Hydroxide 30 ml/Diphenhydramine HCl 75 mg/Nystatin 30 ml 0 ml PO Q3H PRN PRN Reason: Pain Dexamethasone (Dexamethasone Intensol) 6 mg PO DAILY [facility] Last Admin: 10/30/20 08:48 Dose: 6 mg Documented by: Dextrose/Water (Dextrose 50% In Water) 50 ml IV ASDIRECTED PRN PRN Reason: Hypoglycemia Enoxaparin Sodium (Lovenox) 40 mg SUBCUT Q24H [facility] Last Admin: 10/29/20 16:49 Dose: 40 mg Documented by: Glucagon (Glucagen) 1 mg IM ASDIRECTED PRN PRN Reason: Hypoglycemia Hydrochlorothiazide (Hydrochlorothiazide) 25 mg PO DAILY [facility] Last Admin: 10/30/20 08:57 Dose: 25 mg Documented by: Acyclovir 1,000 mg/ Sodium (Chloride) 270 mls @ 250 mls/hr IV Q8H [facility] Last Admin: 10/30/20 02:18 Dose: 250 mls/hr Documented by: Pantoprazole Sodium 40 mg/ (Sodium Chloride) 10 mls @ 300 mls/hr IV DAILY [facility] Last Admin: 10/30/20 08:41 Dose: 300 mls/hr Documented by: Insulin Aspart (Novolog) 0 unit SUBCUT TIDAC [facility]; Protocol Last Admin: 10/30/20 07:38 Dose: Not Given Documented by: Ketorolac Tromethamine (Toradol) 15 mg IVPUSH Q6H PRN PRN Reason: Pain Last Admin: 10/29/20 21:08 Dose: 15 mg Documented by: Labetalol HCl (Normodyne) 100 mg PO DAILY [facility] Last Admin: 10/30/20 08:56 Dose: 100 mg Documented by: Lamotrigine (Lamotrigine) 150 mg PO BID [facility] Last Admin: 10/30/20 08:55 Dose: 150 mg Documented by: Morphine Sulfate (Morphine) 2 mg IVPUSH BEDTIME PRN PRN Reason: Pain Last Admin: 10/29/20 20:25 Dose: 2 mg Documented by: Morphine Sulfate (Morphine) 2 mg IVPUSH Q3H PRN PRN Reason: Pain Last Admin: 10/30/20 08:29 Dose: 2 mg Documented by: Ondansetron HCl (Zofran) 4 mg IVPUSH Q4H PRN PRN Reason: Nausea/Vomiting Oxycodone HCl (Oxycodone) 10 mg PO Q6H PRN PRN Reason: Pain Last Admin: 10/29/20 22:39 Dose: 10 mg Documented by: Sertraline HCl (Zoloft) 50 mg PO DAILY [facility] Last Admin: 10/30/20 08:56 Dose: 50 mg Documented by: Sodium Chloride (Saline Flush) 2.5 ml FLUSH ASDIRECTED PRN PRN Reason: Keep Vein Open Last Admin: 10/26/20 21:49 Dose: 2.5 ml Documented by: Discontinued Medications Benzocaine (Hurricaine One 20%) 2 each MUCMEM ONETIME ONE Stop: 10/27/20 16:40 Last Admin: 10/27/20 17:59 Dose: 2 each Documented by: Benzocaine (Hurricaine One 20%) Confirm Administered Dose 2 each .ROUTE .STK-MED ONE Stop: 10/27/20 19:46 Last Admin: 10/27/20 19:54 Dose: Not Given Documented by: Lidocaine HCl 30 ml/ Al Hydroxide/Mg Hydroxide 30 ml/Diphenhydramine HCl 75 mg/Nystatin 30 ml 0 ml PO TID [facility] Last Admin: 10/27/20 07:00 Dose: 10 ml Documented by: Lidocaine HCl 30 ml/ Al Hydroxide/Mg Hydroxide 30 ml/Diphenhydramine HCl 75 mg/Nystatin 30 ml 0 ml PO TID [facility] Last Admin: 10/29/20 09:49 Dose: Not Given Documented by: Dexamethasone (Dexamethasone Intensol) 0.5 mg PO Q6HR [facility] Last Admin: 10/27/20 11:37 Dose: 0.5 ml Documented by: Dexamethasone (Decadron) 10 mg IVPUSH ONETIME ONE Stop: 10/27/20 14:52 Last Admin: 10/27/20 15:17 Dose: 10 mg Documented by: Dexamethasone (Dexamethasone Intensol) 6 mg PO DAILY [facility] Dexamethasone (Dexamethasone Intensol) 1 mg PO DAILY [facility] Last Admin: 10/28/20 20:41 Dose: Not Given Documented by: Fentanyl (Sublimaze) 25 mcg IVPUSH ONETIME ONE Stop: 10/27/20 16:45 Last Admin: 10/27/20 18:04 Dose: 25 mcg Documented by: Fentanyl (Sublimaze) 25 mcg IVPUSH ONETIME ONE Stop: 10/28/20 04:05 Last Admin: 10/28/20 07:48 Dose: Not Given Documented by: Fentanyl (Sublimaze) 25 mcg IVPUSH ONETIME ONE Stop: 10/28/20 04:16 Last Admin: 10/28/20 04:18 Dose: 25 mcg Documented by: Hydromorphone HCl (Dilaudid) 0.5 mg IVPUSH ONETIME ONE Stop: 10/26/20 21:24 Last Admin: 10/26/20 21:49 Dose: 0.5 mg Documented by: Hydromorphone HCl (Dilaudid) 0.5 mg IVPUSH ONETIME ONE Stop: 10/26/20 23:45 Last Admin: 10/26/20 23:55 Dose: 0.5 mg Documented by: Hydromorphone HCl (Dilaudid) 0.5 mg IVPUSH Q3H PRN PRN Reason: Pain (severe 7-10) Last Admin: 10/27/20 01:51 Dose: 0.5 mg Documented by: Hydromorphone HCl (Dilaudid) 1 mg IVPUSH Q3H PRN PRN Reason: Pain (severe 7-10) Last Admin: 10/27/20 05:17 Dose: 1 mg Documented by: Hydromorphone HCl (Dilaudid) 1 mg IVPUSH Q3H PRN PRN Reason: Pain (severe 7-10) Last Admin: 10/27/20 08:44 Dose: 1 mg Documented by: Sodium Chloride (Normal Saline) 1,000 mls @ 999 mls/hr IV .Bolus ONE Stop: 10/26/20 22:24 Last Admin: 10/26/20 21:47 Dose: 999 mls/hr Documented by: Sodium Chloride (Normal Saline) 1,000 mls @ 999 mls/hr IV .Bolus ONE Stop: 10/26/20 22:23 Last Admin: 10/26/20 22:39 Dose: 999 mls/hr Documented by: Lactated Ringer's (Ringers, Lactated) 1,000 mls @ 125 mls/hr IV ASDIRECTED [facility] Last Admin: 10/27/20 02:22 Dose: 125 mls/hr Documented by: Lactated Ringer's (Ringers, Lactated) 1,000 mls @ 125 mls/hr IV Q5H [facility] Last Admin: 10/29/20 16:22 Dose: 125 mls/hr Documented by: Insulin Aspart (Novolog) 0 unit SUBCUT Q6H [facility]; Protocol Last Admin: 10/29/20 12:58 Dose: Not Given Documented by: Ketorolac Tromethamine (Toradol) 30 mg IVPUSH ONETIME ONE Stop: 10/26/20 21:24 Last Admin: 10/26/20 21:49 Dose: 30 mg Documented by: Ketorolac Tromethamine (Toradol) 30 mg IVPUSH Q6H PRN PRN Reason: Pain Last Admin: 10/27/20 11:51 Dose: 30 mg Documented by: Ketorolac Tromethamine (Toradol) 15 mg IVPUSH Q3H PRN PRN Reason: Pain Last Admin: 10/29/20 08:22 Dose: 15 mg Documented by: Ketorolac Tromethamine (Toradol) 15 mg IVPUSH Q6H PRN PRN Reason: Pain Lidocaine HCl (Xylocaine 2% Viscous) 20 ml PO ONETIME ONE Stop: 10/26/20 22:43 Last Admin: 10/26/20 22:47 Dose: Not Given Documented by: Lidocaine HCl (Xylocaine 2% Viscous) Confirm Administered Dose 30 ml .ROUTE .STK-MED ONE Stop: 10/26/20 22:44 Last Admin: 10/26/20 22:47 Dose: Not Given Documented by: Lidocaine HCl (Xylocaine 2% Viscous) 30 ml PO ONETIME ONE Stop: 10/26/20 22:45 Last Admin: 10/26/20 22:47 Dose: Not Given Documented by: Lidocaine HCl (Xylocaine 2% Viscous) 20 ml PO ONETIME ONE Stop: 10/26/20 22:45 Last Admin: 10/26/20 22:46 Dose: 20 ml Documented by: Lidocaine HCl (Xylocaine 2% Viscous) 20 ml PO ONETIME ONE Stop: 10/27/20 16:40 Last Admin: 10/28/20 10:57 Dose: 20 ml Documented by: Lidocaine HCl (Xylocaine 2% Viscous) 20 ml PO Q6HR [facility] Last Admin: 10/28/20 06:33 Dose: Not Given Documented by: Lidocaine HCl (Xylocaine 2% Viscous) Confirm Administered Dose 15 ml .ROUTE .STK-MED ONE Stop: 10/27/20 19:46 Last Admin: 10/27/20 19:54 Dose: Not Given Documented by: Lorazepam (Ativan) 2 mg IVPUSH ONETIME ONE Stop: 10/27/20 10:12 Last Admin: 10/27/20 10:24 Dose: 2 mg Documented by: Lorazepam (Ativan) 2 mg IVPUSH ONETIME ONE Stop: 10/29/20 10:42 Last Admin: 10/29/20 10:51 Dose: 2 mg Documented by: Minocycline HCl (Minocin) 100 mg PO TID [facility] Last Admin: 10/28/20 06:26 Dose: 100 mg Documented by: Morphine Sulfate (Morphine) 4 mg IVPUSH Q3H PRN PRN Reason: Pain Last Admin: 10/27/20 15:13 Dose: 4 mg Documented by: Morphine Sulfate (Morphine) 2 mg IVPUSH ONETIME ONE Stop: 10/28/20 12:42 Last Admin: 10/28/20 16:22 Dose: 2 mg Documented by: Morphine Sulfate (Morphine) 2 mg IVPUSH ONETIME ONE Stop: 10/29/20 00:58 Last Admin: 10/29/20 01:14 Dose: 2 mg Documented by: Non-Formulary Medication (Nf Drug) 0 each BUCC[facility] Q3H PRN PRN Reason: oral pain Last Admin: 10/28/20 20:26 Dose: 6 each Documented by: Ondansetron HCl (Zofran) 4 mg IVPUSH ONETIME ONE Stop: 10/26/20 21:24 Last Admin: 10/26/20 21:49 Dose: 4 mg Documented by: Oxycodone HCl (Oxycodone) 10 mg PO Q6H PRN PRN Reason: Pain (moderate 4-6) Last Admin: 10/28/20 05:31 Dose: 10 mg Documented by: Oxycodone HCl (Oxycodone) 10 mg PO Q6H [facility] Last Admin: 10/29/20 05:38 Dose: 10 mg Documented by: Oxycodone HCl (Oxycodone) 10 mg PO Q6H PRN PRN Reason: Pain Penicillin G Benzathine (Bicillin L-A) 2.4 millunits IM ONETIME ONE Stop: 10/27/20 10:38 Last Admin: 10/27/20 11:26 Dose: 2.4 millunits Documented by: Sodium Chloride (Saline Flush) 10 ml FLUSH ASDIRECTED PRN PRN Reason: Keep Vein Open Last Admin: 10/26/20 21:49 Dose: 10 ml Documented by: - Exam Quality Assessment: DVT Prophylaxis General: Alert, Oriented, Cooperative, No Acute Distress HEENT: Pupils Equal, Pupils Reactive, EOMI, Mucous Membr. Moist/[place] Neck: Supple. No: Lymphadenopathy Lungs: Clear to Auscultation, Normal Respiratory Effort Cardiovascular: Regular Rate, Regular Rhythm GI/Abdominal Exam: Normal Bowel Sounds, Soft, Non-Tender, No Distention Extremities: Normal Inspection, Normal Range of Motion, Non-Tender, No Pedal Edema, Normal Capillary Refill Peripheral Pulses: 2+: Radial (L), Radial (R), Dorsalis Pedis (L), Dorsalis Pedis (R) Skin: Warm, Dry, Intact, Other (Improving mouth sores) Wound/Incisions: Healing Well Neurological: No New Focal Deficit Psy/Mental Status: Alert, Normal Affect, Normal Mood Sepsis Event Note - Evaluation Sepsis Screening Result: No Definite Risk - Focused Exam Vital Signs: Vital Signs Temp Pulse Pulse Resp BP BP BP 10/30/20 08:56 80 175/93 H 10/30/20 06:59 97.7 F 80 16 175/93 H 10/30/20 05:21 98 F 84 17 156/95 H 10/30/20 00:55 98.1 F 70 17 148/85 H Pulse Ox 10/30/20 08:56 10/30/20 06:59 95 10/30/20 05:21 95 10/30/20 00:55 95 - Problem List Review Problem List Initiated/Reviewed/Updated: Yes - My Orders Last 24 Hours: My Active Orders 10/31/20 05:11 CBC WITH AUTO DIFF [HEME] AM CMP [COMPREHENSIVE METABOLIC PN,CMP] [CHEM] AM 11/01/20 05:11 CBC WITH AUTO DIFF [HEME] AM CMP [COMPREHENSIVE METABOLIC PN,CMP] [CHEM] AM - Plan Plan:: Patient is a kofi 35-year-old female admitted with herpetic gingivostomatosis. 1. Oral herpetic vesicular lesions: Patient remains afebrile, negative CT neck, normal wbc 9.4, lesions have significantly reduced in size, and started to disappear 6mg dexamethasone solution, oxycodone 10 mg every 6 hours as needed and Toradol 15 as needed -Bedtime morphine as needed to help patient sleep Zofran 4 every 4 hours for nausea as needed dry mouth , given 1 L LR bolus, Biotene oral spray Did not tolerate soft mechanical diet, therefore resumed to clear liquid diet and will advance as tolerated. Miracle mouthwash every 3 hours as needed Acyclovir, 1000 g IV daily every 8 hours, total 7 days HSV pending HIV negative strep was negative 2. Hypertension: Resumed labetalol yesterday, blood pressure remains elevated, pain and anxiety could be contributing, for now we will try increasing hydrochlorothiazide to 37.5 mg daily as a suspect home blood pressure is not well controlled Pain is very well controlled, patient has home dose of lorazepam 3 times daily as needed available for anxiety 3. Mild hypokalemia: 0.4, replete 40 mEq p.o., reassess with a.m. CMP daily 4. Past medical history of hypertension, blood clots, anxiety, type 2 diabetes, obesity: We will resume all appropriate home medications SCDs for DVT prophylaxis 40 lovenox subq q24h, pantoprazole 40 IV for GI prophylaxis, diet clear liquid advance as tolerated, activity as tolerated
[2020-10-30] MEDS ORDERED: Lactated Ringers 1,000 ML IV ONE (10:13)
[2020-10-30] MEDS ORDERED: Potassium Chloride 20 MEQ Tab.ER PO ONE (10:14)
[2020-10-30] MEDS ORDERED: Non-Formulary Medication 1 Each SL PRN (10:15)
[2020-10-30] MEDS ORDERED: Hydrochlorothiazide 25 MG Tab PO ONE (11:00)
[2020-10-30] MEDS: BIOTENE RINSE PRN ×2 (16:49→22:56)
[2020-10-30] MEDS: Enoxaparin 40 MG/0.4 ML Syringe SUBCUT SCH (18:20)
[2020-10-30] MEDS: oxyCODONE 5 MG Tab PO PRN (20:21)
[2020-10-31] MEDS: Benzocaine 20% Topical Spray UD MUCMEM SCH ×3 (00:32→13:45)
[2020-10-31] MEDS: oxyCODONE 5 MG Tab PO PRN (02:53)
[2020-10-31 05:50] LABS: BLOOD UREA NITROGEN,BUN 11 mg/dL (7.0-18.0); CARBON DIOXIDE,CO2 30.8 mmol/L (21.0-32.0); CHLORIDE,CL 102 mmol/L (98-107); GLUCOSE RANDOM 96 mg/dL (74-106); POTASSIUM,K 3.5 mmol/L (3.5-5.1); SODIUM,NA 140 mmol/L (136-145)
[2020-10-31] MEDS: Insulin Aspart 100 Units/ML 3 ML Pen SUBCUT SCH ×2 (06:59→13:44)
[2020-10-31 08:39] VITALS: BP 147/100; PULSE 76
[2020-10-31] MEDS: Labetalol 100 MG Tab PO SCH (08:39)
[2020-10-31] MEDS: Sertraline 50 MG Tab PO SCH (08:39)
[2020-10-31] MEDS: lamoTRIgine 100 MG Tab PO SCH (08:41)
[2020-10-31] MEDS: Pantoprazole 40 MG in Sodium Chloride 0.9% 10 ML IV SCH (08:42)
[2020-10-31] MEDS: Dexamethasone 1 MG/ML Oral Drops 30 ML Bottle PO SCH (08:43)
[2020-10-31] MEDS ORDERED: Hydrochlorothiazide 25 MG Tab PO SCH (09:00)
--- NOTE | 2020-10-31 11:07 | PCM.DCSUM1 ---
<Dolores Barriga - Last Filed: 10/31/20 16:17> Discharge Summary - Hospital Course Brief History: Patient is a kofi 35-year-old female admitted for herpetic gingiva stomatitis ptosis versus aphthous ulcers of the mouth and significant dehydration. Patient initially came in with intractable pain, unable to tolerate p.o. both solids and liquids since last 3 days. Denies any previous similar episodes, denies any known sick contacts with similar symptoms, denies any previous herpetic outbreaks. Previously was seen in PCPs office, thought to have strep throat and was treated with amoxicillin, patient did not complete complete course of antibiotics due to difficulty tolerating p.o. Since has had repeat visits to the ER; 2 days prior was given Magic mouthwash and pain control with Percocet and Motrin. In addition CT scan of the neck did not indicate any abscess or soft tissue abnormalities. Shortly after patient returned to the ED early yesterday, was given IM morphine, Toradol and Ultram for pain. Was discharged with Ultram prescription. Patient then again resumed to the ED once IM pain medication had worn off, complaining of significant pain rated 7 out of 10 on the pain scale. Denied any alleviating factors. States worsen with talking, or putting any solids or liquids in her mouth. Overnight, continue to use oral swabs with ice water. This morning, patient is tearful and uncomfortable asking for symptom relief. Denies any shortness of breath, cough. At bedside noted multiple vesicular lesions on the inner side of her lip on peripheral margins of the tongue bilaterally and gumlines bilaterally. No erythema or discharge noted from eyes ears throat or nose. Patient remains afebrile and vitally stable. Diagnosis: Stroke: No - Discharge Data Discharge Date: 10/31/20 Discharge Disposition: Home, Self-Care 01 Condition: Good - Referral to Home Health Primary Care Physician: Mercy Cornell NP - Patient Summary/Data Hospital Course: Patient was admitted to [facility] service due to significant herpetic gingivostomatosis, unable to tolerate p.o. liquids or solids as well as unable to speak due to pain being 10 out of 10. Was admitted and started on Magic mouthwash, acyclovir, dexamethasone, LR fluid hydration, and pain control with morphine, oxycodone and dental balls. Patient symptoms significantly improved, continue to provide pain relief and hydration, following day patient was able to speak and tolerate some liquid clear diet. Following day was able to initiate soft mechanical diet. Patient discharged with appropriate antiviral medications, steroids, and pain control. Patient is to follow-up with PCP closely post discharge within the week. - Patient Instructions Diet: Heart Healthy Diet, Mechanical Soft (advance as tolerated), Pureed Activity: As Tolerated Driving: May Drive Today Showering/Bathing: May Shower Notify Provider of: Fever, Increased Pain, Swelling and Redness, Drainage, Nausea and/or Vomiting - Discharge Plan *PRESCRIPTION DRUG MONITORING PROGRAM REVIEWED*: Not Applicable *COPY OF PRESCRIPTION DRUG MONITORING REPORT IN PATIENT JAQUAN: Not Applicable Prescriptions/Med Rec: dexAMETHasone [Dexamethasone Intensol] 6 mg PO DAILY 4 Days #4 bottle Alum Hydrox/Mag Hydrox/Simeth [Mag-Al Plus] 30 ml PO Q3H PRN 5 Days #1 cup PRN Reason: Pain oxyCODONE 10 mg PO Q6H PRN 5 Days #20 tablet PRN Reason: Pain Acyclovir [Zovirax] 800 mg PO Q8H 5 Days #20 vial Home Medications: Home Meds Labetalol HCl [Labetalol] 100 mg PO DAILY 10/24/20 [History] lamoTRIgine [Lamotrigine] 150 mg PO BID 10/24/20 [History] metFORMIN [Glucophage] 1,000 mg PO WITHDINNER 10/24/20 [History] Ibuprofen 600 mg PO Q6HR PRN #30 tablet 10/26/20 [Rx] Sertraline [Zoloft] 50 mg PO DAILY 10/27/20 [History] hydroCHLOROthiazide [Hydrochlorothiazide] 1 tab PO DAILY 10/27/20 [History] Acyclovir [Zovirax] 800 mg PO Q8H 5 Days #20 vial 10/30/20 [Rx] Alum Hydrox/Mag Hydrox/Simeth [Mag-Al Plus] 30 ml PO Q3H PRN 5 Days #1 cup 10/30/20 [Rx] dexAMETHasone [Dexamethasone Intensol] 6 mg PO DAILY 4 Days #4 bottle 10/30/20 [Rx] oxyCODONE 10 mg PO Q6H PRN 5 Days #20 tablet 10/30/20 [Rx] Oxygen Therapy Mode: Room Air Patient Handouts: Oral Ulcers, Aluminum Hydroxide; Magnesium Hydroxide; Simethicone tablets, Stomatitis, [id number], Viral Illness, Adult, Acyclovir tablets or capsules, Dexamethasone tablets Referrals: Mercy Cornell LACE STRIPPER [Primary Care Provider] - 11/04/20 12:15 pm - Discharge Summary/Plan Comment DC Time >30 min.: No Discharge Summary/Plan Comment: -Patient is to return to hospital in the event her symptoms worsen or resume.discussed with patient to return to hospital in the event she experienced any shortness of breath, difficulty breathing, excruciating oral pain and difficulty tolerating oral intake. -Patient is to follow-up closely with PCP discussed possible long-term prophylactic HSV treatment. -Furthermore plan patient's blood pressure remained elevated during her hospital stay which may have been due to her pain and anxiety, therefore it is suggested to reevaluate her blood pressure and consider increasing blood pressure regimen. - Patient Data Vitals - Most Recent: Last Vital Signs Temp 97.7 F 10/31/20 08:00 Pulse 76 10/31/20 08:39 Resp 18 10/31/20 08:00 BP 147/100 H 10/31/20 08:39 Pulse Ox 94 L 10/31/20 08:00 Weight - Most Recent: 183.569 kg I&O - Last 24 hours: Intake & Output 10/30/20 10/31/20 10/31/20 22:59 06:59 14:59 Intake Total 1810 1000 Output Total 1200 1800 Balance 610 -800 Lab Results - Last 24 hrs: Laboratory Results - last 24 hr 10/30/20 10/30/20 10/31/20 Range/Units 11:56 17:22 04:44 WBC 8.89 (4.0-11.0) K/uL RBC 4.52 (4.30-5.90) M/uL Hgb 12.4 (12.0-16.0) g/dL Hct 38.8 (36.0-46.0) % MCV 85.8 (80.0-98.0) fL MCH 27.4 (27.0-32.0) pg MCHC 32.0 (31.0-37.0) g/dL RDW Std Deviation 42.7 (28.0-62.0) fl RDW Coeff of Nicole 14 (11.0-15.0) % Plt Count 273 (150-400) K/uL MPV 9.80 (7.40-12.00) fL Neut % (Auto) 47.1 L (48.0-80.0) % Lymph % (Auto) 41.8 H (16.0-40.0) % [place] % (Auto) 10.0 (0.0-15.0) % Eos % (Auto) 0.7 (0.0-7.0) % Baso % (Auto) 0.4 (0.0-1.5) % Neut # (Auto) 4.2 (1.4-5.7) K/uL Lymph # (Auto) 3.7 H (0.6-2.4) K/uL [place] # (Auto) 0.9 H (0.0-0.8) K/uL Eos # (Auto) 0.1 (0.0-0.7) K/uL Baso # (Auto) 0.0 (0.0-0.1) K/uL Nucleated RBC % 0.0 /100WBC Nucleated RBCs # 0 K/uL Sodium (136-145) mmol/L Potassium (3.5-5.1) mmol/L Chloride (98-107) mmol/L Carbon Dioxide (21.0-32.0) mmol/L BUN (7.0-18.0) mg/dL Creatinine (0.6-1.0) mg/dL Est Cr Clr Drug Dosing mL/min Estimated GFR (MDRD) ml/min Glucose (74-106) mg/dL POC Glucose 110 96 (60-110) mg/dL Calcium (8.5-10.1) mg/dL Total Bilirubin (0.2-1.0) mg/dL AST (15-37) IU/L ALT (14-63) IU/L Alkaline Phosphatase (46-116) U/L Total Protein (6.4-8.2) g/dL Albumin (3.4-5.0) g/dL Globulin (2.6-4.0) g/dL Albumin/Globulin Ratio (0.9-1.6) 10/31/20 Range/Units 04:44 WBC (4.0-11.0) K/uL RBC (4.30-5.90) M/uL Hgb (12.0-16.0) g/dL Hct (36.0-46.0) % MCV (80.0-98.0) fL MCH (27.0-32.0) pg MCHC (31.0-37.0) g/dL RDW Std Deviation (28.0-62.0) fl RDW Coeff of Nicole (11.0-15.0) % Plt Count (150-400) K/uL MPV (7.40-12.00) fL Neut % (Auto) (48.0-80.0) % Lymph % (Auto) (16.0-40.0) % [place] % (Auto) (0.0-15.0) % Eos % (Auto) (0.0-7.0) % Baso % (Auto) (0.0-1.5) % Neut # (Auto) (1.4-5.7) K/uL Lymph # (Auto) (0.6-2.4) K/uL [place] # (Auto) (0.0-0.8) K/uL Eos # (Auto) (0.0-0.7) K/uL Baso # (Auto) (0.0-0.1) K/uL Nucleated RBC % /100WBC Nucleated RBCs # K/uL Sodium 140 (136-145) mmol/L Potassium 3.5 (3.5-5.1) mmol/L Chloride 102 (98-107) mmol/L Carbon Dioxide 30.8 (21.0-32.0) mmol/L BUN 11 (7.0-18.0) mg/dL Creatinine 1.0 (0.6-1.0) mg/dL Est Cr Clr Drug Dosing 109.63 mL/min Estimated GFR (MDRD) > 60.0 ml/min Glucose 96 (74-106) mg/dL POC Glucose (60-110) mg/dL Calcium 8.8 (8.5-10.1) mg/dL Total Bilirubin 0.5 (0.2-1.0) mg/dL AST 51 H (15-37) IU/L ALT 88 H (14-63) IU/L Alkaline Phosphatase 70 (46-116) U/L Total Protein 7.3 (6.4-8.2) g/dL Albumin 2.8 L (3.4-5.0) g/dL Globulin 4.5 H (2.6-4.0) g/dL Albumin/Globulin Ratio 0.6 L (0.9-1.6) Med Orders - Current: Current Medications Albuterol/Ipratropium (Duoneb 3.0-0.5 Mg/3 Ml) 3 ml NEB Q4HRRT PRN PRN Reason: Shortness Of Breath/wheezing Benzocaine (Hurricaine One 20%) 0 each MUCMEM Q6HR [facility] Last Admin: 10/31/20 06:39 Dose: Not Given Documented by: Lidocaine HCl 30 ml/ Al Hydroxide/Mg Hydroxide 30 ml/Diphenhydramine HCl 75 mg/Nystatin 30 ml 0 ml PO Q3H PRN PRN Reason: Pain Dexamethasone (Dexamethasone Intensol) 6 mg PO DAILY [facility] Last Admin: 10/31/20 08:43 Dose: 6 mg Documented by: Dextrose/Water (Dextrose 50% In Water) 50 ml IV ASDIRECTED PRN PRN Reason: Hypoglycemia Enoxaparin Sodium (Lovenox) 40 mg SUBCUT Q24H [facility] Last Admin: 10/30/20 18:20 Dose: 40 mg Documented by: Glucagon (Glucagen) 1 mg IM ASDIRECTED PRN PRN Reason: Hypoglycemia Hydrochlorothiazide (Hydrochlorothiazide) 37.5 mg PO DAILY [facility] Last Admin: 10/31/20 08:40 Dose: 37.5 mg Documented by: Pantoprazole Sodium 40 mg/ (Sodium Chloride) 10 mls @ 300 mls/hr IV DAILY [facility] Last Admin: 10/31/20 08:42 Dose: 300 mls/hr Documented by: Acyclovir 1,000 mg/ Sodium (Chloride) 270 mls @ 270 mls/hr IV Q8H [facility] Last Admin: 10/31/20 09:34 Dose: 270 mls/hr Documented by: Insulin Aspart (Novolog) 0 unit SUBCUT TIDAC [facility]; Protocol Last Admin: 10/31/20 06:59 Dose: Not Given Documented by: Ketorolac Tromethamine (Toradol) 15 mg IVPUSH Q6H PRN PRN Reason: Pain Last Admin: 10/29/20 21:08 Dose: 15 mg Documented by: Labetalol HCl (Normodyne) 100 mg PO DAILY [facility] Last Admin: 10/31/20 08:39 Dose: 100 mg Documented by: Lamotrigine (Lamotrigine) 150 mg PO BID [facility] Last Admin: 10/31/20 08:41 Dose: 150 mg Documented by: Morphine Sulfate (Morphine) 2 mg IVPUSH BEDTIME PRN PRN Reason: Pain Last Admin: 10/29/20 20:25 Dose: 2 mg Documented by: Morphine Sulfate (Morphine) 2 mg IVPUSH Q3H PRN PRN Reason: Pain Last Admin: 10/30/20 23:03 Dose: 2 mg Documented by: Biotene Oral Rinse 0 each .XX QID PRN PRN Reason: dry mouth Last Admin: 10/30/20 22:56 Dose: 1 each Documented by: Ondansetron HCl (Zofran) 4 mg IVPUSH Q4H PRN PRN Reason: Nausea/Vomiting Last Admin: 10/31/20 02:57 Dose: 4 mg Documented by: Oxycodone HCl (Oxycodone) 10 mg PO Q6H PRN PRN Reason: Pain Last Admin: 10/31/20 02:53 Dose: 10 mg Documented by: Sertraline HCl (Zoloft) 50 mg PO DAILY [facility] Last Admin: 10/31/20 08:39 Dose: 50 mg Documented by: Sodium Chloride (Saline Flush) 2.5 ml FLUSH ASDIRECTED PRN PRN Reason: Keep Vein Open Last Admin: 10/26/20 21:49 Dose: 2.5 ml Documented by: Discontinued Medications Benzocaine (Hurricaine One 20%) 2 each MUCMEM ONETIME ONE Stop: 10/27/20 16:40 Last Admin: 10/27/20 17:59 Dose: 2 each Documented by: Benzocaine (Hurricaine One 20%) Confirm Administered Dose 2 each .ROUTE .STK-MED ONE Stop: 10/27/20 19:46 Last Admin: 10/27/20 19:54 Dose: Not Given Documented by: Lidocaine HCl 30 ml/ Al Hydroxide/Mg Hydroxide 30 ml/Diphenhydramine HCl 75 mg/Nystatin 30 ml 0 ml PO TID [facility] Last Admin: 10/27/20 07:00 Dose: 10 ml Documented by: Lidocaine HCl 30 ml/ Al Hydroxide/Mg Hydroxide 30 ml/Diphenhydramine HCl 75 mg/Nystatin 30 ml 0 ml PO TID [facility] Last Admin: 10/29/20 09:49 Dose: Not Given Documented by: Dexamethasone (Dexamethasone Intensol) 0.5 mg PO Q6HR [facility] Last Admin: 10/27/20 11:37 Dose: 0.5 ml Documented by: Dexamethasone (Decadron) 10 mg IVPUSH ONETIME ONE Stop: 10/27/20 14:52 Last Admin: 10/27/20 15:17 Dose: 10 mg Documented by: Dexamethasone (Dexamethasone Intensol) 6 mg PO DAILY [facility] Dexamethasone (Dexamethasone Intensol) 1 mg PO DAILY [facility] Last Admin: 10/28/20 20:41 Dose: Not Given Documented by: Fentanyl (Sublimaze) 25 mcg IVPUSH ONETIME ONE Stop: 10/27/20 16:45 Last Admin: 10/27/20 18:04 Dose: 25 mcg Documented by: Fentanyl (Sublimaze) 25 mcg IVPUSH ONETIME ONE Stop: 10/28/20 04:05 Last Admin: 10/28/20 07:48 Dose: Not Given Documented by: Fentanyl (Sublimaze) 25 mcg IVPUSH ONETIME ONE Stop: 10/28/20 04:16 Last Admin: 10/28/20 04:18 Dose: 25 mcg Documented by: Hydrochlorothiazide (Hydrochlorothiazide) 25 mg PO DAILY [facility] Last Admin: 10/30/20 08:57 Dose: 25 mg Documented by: Hydrochlorothiazide (Hydrochlorothiazide) 12.5 mg PO ONETIME ONE Stop: 10/30/20 11:01 Last Admin: 10/30/20 11:24 Dose: 12.5 mg Documented by: Hydromorphone HCl (Dilaudid) 0.5 mg IVPUSH ONETIME ONE Stop: 10/26/20 21:24 Last Admin: 10/26/20 21:49 Dose: 0.5 mg Documented by: Hydromorphone HCl (Dilaudid) 0.5 mg IVPUSH ONETIME ONE Stop: 10/26/20 23:45 Last Admin: 10/26/20 23:55 Dose: 0.5 mg Documented by: Hydromorphone HCl (Dilaudid) 0.5 mg IVPUSH Q3H PRN PRN Reason: Pain (severe 7-10) Last Admin: 10/27/20 01:51 Dose: 0.5 mg Documented by: Hydromorphone HCl (Dilaudid) 1 mg IVPUSH Q3H PRN PRN Reason: Pain (severe 7-10) Last Admin: 10/27/20 05:17 Dose: 1 mg Documented by: Hydromorphone HCl (Dilaudid) 1 mg IVPUSH Q3H PRN PRN Reason: Pain (severe 7-10) Last Admin: 10/27/20 08:44 Dose: 1 mg Documented by: Sodium Chloride (Normal Saline) 1,000 mls @ 999 mls/hr IV .Bolus ONE Stop: 10/26/20 22:24 Last Admin: 10/26/20 21:47 Dose: 999 mls/hr Documented by: Sodium Chloride (Normal Saline) 1,000 mls @ 999 mls/hr IV .Bolus ONE Stop: 10/26/20 22:23 Last Admin: 10/26/20 22:39 Dose: 999 mls/hr Documented by: Lactated Ringer's (Ringers, Lactated) 1,000 mls @ 125 mls/hr IV ASDIRECTED [facility] Last Admin: 10/27/20 02:22 Dose: 125 mls/hr Documented by: Acyclovir 1,000 mg/ Sodium (Chloride) 270 mls @ 250 mls/hr IV Q8H [facility] Last Admin: 10/30/20 10:08 Dose: 250 mls/hr Documented by: Lactated Ringer's (Ringers, Lactated) 1,000 mls @ 125 mls/hr IV Q5H [facility] Last Admin: 10/29/20 16:22 Dose: 125 mls/hr Documented by: Lactated Ringer's (Ringers, Lactated) 1,000 mls @ 999 mls/hr IV .BOLUS ONE Stop: 10/30/20 11:13 Last Admin: 10/30/20 11:14 Dose: 999 mls/hr Documented by: Insulin Aspart (Novolog) 0 unit SUBCUT Q6H [facility]; Protocol Last Admin: 10/29/20 12:58 Dose: Not Given Documented by: Ketorolac Tromethamine (Toradol) 30 mg IVPUSH ONETIME ONE Stop: 10/26/20 21:24 Last Admin: 10/26/20 21:49 Dose: 30 mg Documented by: Ketorolac Tromethamine (Toradol) 30 mg IVPUSH Q6H PRN PRN Reason: Pain Last Admin: 10/27/20 11:51 Dose: 30 mg Documented by: Ketorolac Tromethamine (Toradol) 15 mg IVPUSH Q3H PRN PRN Reason: Pain Last Admin: 10/29/20 08:22 Dose: 15 mg Documented by: Ketorolac Tromethamine (Toradol) 15 mg IVPUSH Q6H PRN PRN Reason: Pain Lidocaine HCl (Xylocaine 2% Viscous) 20 ml PO ONETIME ONE Stop: 10/26/20 22:43 Last Admin: 10/26/20 22:47 Dose: Not Given Documented by: Lidocaine HCl (Xylocaine 2% Viscous) Confirm Administered Dose 30 ml .ROUTE .STK-MED ONE Stop: 10/26/20 22:44 Last Admin: 10/26/20 22:47 Dose: Not Given Documented by: Lidocaine HCl (Xylocaine 2% Viscous) 30 ml PO ONETIME ONE Stop: 10/26/20 22:45 Last Admin: 10/26/20 22:47 Dose: Not Given Documented by: Lidocaine HCl (Xylocaine 2% Viscous) 20 ml PO ONETIME ONE Stop: 10/26/20 22:45 Last Admin: 10/26/20 22:46 Dose: 20 ml Documented by: Lidocaine HCl (Xylocaine 2% Viscous) 20 ml PO ONETIME ONE Stop: 10/27/20 16:40 Last Admin: 10/28/20 10:57 Dose: 20 ml Documented by: Lidocaine HCl (Xylocaine 2% Viscous) 20 ml PO Q6HR [facility] Last Admin: 10/28/20 06:33 Dose: Not Given Documented by: Lidocaine HCl (Xylocaine 2% Viscous) Confirm Administered Dose 15 ml .ROUTE .STK-MED ONE Stop: 10/27/20 19:46 Last Admin: 10/27/20 19:54 Dose: Not Given Documented by: Lorazepam (Ativan) 2 mg IVPUSH ONETIME ONE Stop: 10/27/20 10:12 Last Admin: 10/27/20 10:24 Dose: 2 mg Documented by: Lorazepam (Ativan) 2 mg IVPUSH ONETIME ONE Stop: 10/29/20 10:42 Last Admin: 10/29/20 10:51 Dose: 2 mg Documented by: Minocycline HCl (Minocin) 100 mg PO TID [facility] Last Admin: 10/28/20 06:26 Dose: 100 mg Documented by: Morphine Sulfate (Morphine) 4 mg IVPUSH Q3H PRN PRN Reason: Pain Last Admin: 10/27/20 15:13 Dose: 4 mg Documented by: Morphine Sulfate (Morphine) 2 mg IVPUSH ONETIME ONE Stop: 10/28/20 12:42 Last Admin: 10/28/20 16:22 Dose: 2 mg Documented by: Morphine Sulfate (Morphine) 2 mg IVPUSH ONETIME ONE Stop: 10/29/20 00:58 Last Admin: 10/29/20 01:14 Dose: 2 mg Documented by: Non-Formulary Medication (Nf Drug) 0 each BUCC[place] Q3H PRN PRN Reason: oral pain Last Admin: 10/28/20 20:26 Dose: 6 each Documented by: Ondansetron HCl (Zofran) 4 mg IVPUSH ONETIME ONE Stop: 10/26/20 21:24 Last Admin: 10/26/20 21:49 Dose: 4 mg Documented by: Oxycodone HCl (Oxycodone) 10 mg PO Q6H PRN PRN Reason: Pain (moderate 4-6) Last Admin: 10/28/20 05:31 Dose: 10 mg Documented by: Oxycodone HCl (Oxycodone) 10 mg PO Q6H [facility] Last Admin: 10/29/20 05:38 Dose: 10 mg Documented by: Oxycodone HCl (Oxycodone) 10 mg PO Q6H PRN PRN Reason: Pain Penicillin G Benzathine (Bicillin L-A) 2.4 millunits IM ONETIME ONE Stop: 10/27/20 10:38 Last Admin: 10/27/20 11:26 Dose: 2.4 millunits Documented by: Potassium Chloride (Klor-Con M20) 40 meq PO ONETIME ONE Stop: 10/30/20 10:15 Last Admin: 10/30/20 11:25 Dose: 40 meq Documented by: Sodium Chloride (Saline Flush) 10 ml FLUSH ASDIRECTED PRN PRN Reason: Keep Vein Open Last Admin: 10/26/20 21:49 Dose: 10 ml Documented by: <Sammy Winters - Last Filed: 11/01/20 19:20> Discharge Summary - Referral to Home Health Primary Care Physician: Mercy A Settelmeyer, L[facility]IPPER - Patient Data Vitals - Most Recent: Last Vital Signs Temp 36.5 C 10/31/20 08:00 Pulse 76 10/31/20 08:39 Resp 18 10/31/20 08:00 BP 147/100 H 10/31/20 08:39 Pulse Ox 94 L 10/31/20 08:00 Lab Results - Last 24 hrs: Laboratory Results - last 24 hr 10/26/20 10/31/20 Range/Units 23:26 06:26 POC Glucose 91 (60-110) mg/dL 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) HSV II DNA Quant (PCR) Negative (Negative) Med Orders - Current: Current Medications Discontinued Medications Albuterol/Ipratropium (Duoneb 3.0-0.5 Mg/3 Ml) 3 ml NEB Q4HRRT PRN PRN Reason: Shortness Of Breath/wheezing Benzocaine (Hurricaine One 20%) 2 each MUCMEM ONETIME ONE Stop: 10/27/20 16:40 Last Admin: 10/27/20 17:59 Dose: 2 each Documented by: Benzocaine (Hurricaine One 20%) 0 each MUCMEM Q6HR [facility] Last Admin: 10/31/20 13:45 Dose: Not Given Documented by: Benzocaine (Hurricaine One 20%) Confirm Administered Dose 2 each .ROUTE .STK-MED ONE Stop: 10/27/20 19:46 Last Admin: 10/27/20 19:54 Dose: Not Given Documented by: Lidocaine HCl 30 ml/ Al Hydroxide/Mg Hydroxide 30 ml/Diphenhydramine HCl 75 mg/Nystatin 30 ml 0 ml PO TID [facility] Last Admin: 10/27/20 07:00 Dose: 10 ml Documented by: Lidocaine HCl 30 ml/ Al Hydroxide/Mg Hydroxide 30 ml/Diphenhydramine HCl 75 mg/Nystatin 30 ml 0 ml PO TID [facility] Last Admin: 10/29/20 09:49 Dose: Not Given Documented by: Lidocaine HCl 30 ml/ Al Hydroxide/Mg Hydroxide 30 ml/Diphenhydramine HCl 75 mg/Nystatin 30 ml 0 ml PO Q3H PRN PRN Reason: Pain Dexamethasone (Dexamethasone Intensol) 0.5 mg PO Q6HR [facility] Last Admin: 10/27/20 11:37 Dose: 0.5 ml Documented by: Dexamethasone (Decadron) 10 mg IVPUSH ONETIME ONE Stop: 10/27/20 14:52 Last Admin: 10/27/20 15:17 Dose: 10 mg Documented by: Dexamethasone (Dexamethasone Intensol) 6 mg PO DAILY [facility] Dexamethasone (Dexamethasone Intensol) 1 mg PO DAILY [facility] Last Admin: 10/28/20 20:41 Dose: Not Given Documented by: Dexamethasone (Dexamethasone Intensol) 6 mg PO DAILY [facility] Last Admin: 10/31/20 08:43 Dose: 6 mg Documented by: Dextrose/Water (Dextrose 50% In Water) 50 ml IV ASDIRECTED PRN PRN Reason: Hypoglycemia Enoxaparin Sodium (Lovenox) 40 mg SUBCUT Q24H [facility] Last Admin: 10/30/20 18:20 Dose: 40 mg Documented by: Fentanyl (Sublimaze) 25 mcg IVPUSH ONETIME ONE Stop: 10/27/20 16:45 Last Admin: 10/27/20 18:04 Dose: 25 mcg Documented by: Fentanyl (Sublimaze) 25 mcg IVPUSH ONETIME ONE Stop: 10/28/20 04:05 Last Admin: 10/28/20 07:48 Dose: Not Given Documented by: Fentanyl (Sublimaze) 25 mcg IVPUSH ONETIME ONE Stop: 10/28/20 04:16 Last Admin: 10/28/20 04:18 Dose: 25 mcg Documented by: Glucagon (Glucagen) 1 mg IM ASDIRECTED PRN PRN Reason: Hypoglycemia Hydrochlorothiazide (Hydrochlorothiazide) 25 mg PO DAILY [facility] Last Admin: 10/30/20 08:57 Dose: 25 mg Documented by: Hydrochlorothiazide (Hydrochlorothiazide) 37.5 mg PO DAILY [facility] Last Admin: 10/31/20 08:40 Dose: 37.5 mg Documented by: Hydrochlorothiazide (Hydrochlorothiazide) 12.5 mg PO ONETIME ONE Stop: 10/30/20 11:01 Last Admin: 10/30/20 11:24 Dose: 12.5 mg Documented by: Hydromorphone HCl (Dilaudid) 0.5 mg IVPUSH ONETIME ONE Stop: 10/26/20 21:24 Last Admin: 10/26/20 21:49 Dose: 0.5 mg Documented by: Hydromorphone HCl (Dilaudid) 0.5 mg IVPUSH ONETIME ONE Stop: 10/26/20 23:45 Last Admin: 10/26/20 23:55 Dose: 0.5 mg Documented by: Hydromorphone HCl (Dilaudid) 0.5 mg IVPUSH Q3H PRN PRN Reason: Pain (severe 7-10) Last Admin: 10/27/20 01:51 Dose: 0.5 mg Documented by: Hydromorphone HCl (Dilaudid) 1 mg IVPUSH Q3H PRN PRN Reason: Pain (severe 7-10) Last Admin: 10/27/20 05:17 Dose: 1 mg Documented by: Hydromorphone HCl (Dilaudid) 1 mg IVPUSH Q3H PRN PRN Reason: Pain (severe 7-10) Last Admin: 10/27/20 08:44 Dose: 1 mg Documented by: Sodium Chloride (Normal Saline) 1,000 mls @ 999 mls/hr IV .Bolus ONE Stop: 10/26/20 22:24 Last Admin: 10/26/20 21:47 Dose: 999 mls/hr Documented by: Sodium Chloride (Normal Saline) 1,000 mls @ 999 mls/hr IV .Bolus ONE Stop: 10/26/20 22:23 Last Admin: 10/26/20 22:39 Dose: 999 mls/hr Documented by: Lactated Ringer's (Ringers, Lactated) 1,000 mls @ 125 mls/hr IV ASDIRECTED [facility] Last Admin: 10/27/20 02:22 Dose: 125 mls/hr Documented by: Acyclovir 1,000 mg/ Sodium (Chloride) 270 mls @ 250 mls/hr IV Q8H [facility] Last Admin: 10/30/20 10:08 Dose: 250 mls/hr Documented by: Lactated Ringer's (Ringers, Lactated) 1,000 mls @ 125 mls/hr IV Q5H [facility] Last Admin: 10/29/20 16:22 Dose: 125 mls/hr Documented by: Pantoprazole Sodium 40 mg/ (Sodium Chloride) 10 mls @ 300 mls/hr IV DAILY [facility] Last Admin: 10/31/20 08:42 Dose: 300 mls/hr Documented by: Lactated Ringer's (Ringers, Lactated) 1,000 mls @ 999 mls/hr IV .BOLUS ONE Stop: 10/30/20 11:13 Last Admin: 10/30/20 11:14 Dose: 999 mls/hr Documented by: Acyclovir 1,000 mg/ Sodium (Chloride) 270 mls @ 270 mls/hr IV Q8H [facility] Last Admin: 10/31/20 09:34 Dose: 270 mls/hr Documented by: Insulin Aspart (Novolog) 0 unit SUBCUT Q6H [facility]; Protocol Last Admin: 10/29/20 12:58 Dose: Not Given Documented by: Insulin Aspart (Novolog) 0 unit SUBCUT TIDAC [facility]; Protocol Last Admin: 10/31/20 13:44 Dose: Not Given Documented by: Ketorolac Tromethamine (Toradol) 30 mg IVPUSH ONETIME ONE Stop: 10/26/20 21:24 Last Admin: 10/26/20 21:49 Dose: 30 mg Documented by: Ketorolac Tromethamine (Toradol) 30 mg IVPUSH Q6H PRN PRN Reason: Pain Last Admin: 10/27/20 11:51 Dose: 30 mg Documented by: Ketorolac Tromethamine (Toradol) 15 mg IVPUSH Q3H PRN PRN Reason: Pain Last Admin: 10/29/20 08:22 Dose: 15 mg Documented by: Ketorolac Tromethamine (Toradol) 15 mg IVPUSH Q6H PRN PRN Reason: Pain Ketorolac Tromethamine (Toradol) 15 mg IVPUSH Q6H PRN PRN Reason: Pain Last Admin: 10/29/20 21:08 Dose: 15 mg Documented by: Labetalol HCl (Normodyne) 100 mg PO DAILY [facility] Last Admin: 10/31/20 08:39 Dose: 100 mg Documented by: Lamotrigine (Lamotrigine) 150 mg PO BID [facility] Last Admin: 10/31/20 08:41 Dose: 150 mg Documented by: Lidocaine HCl (Xylocaine 2% Viscous) 20 ml PO ONETIME ONE Stop: 10/26/20 22:43 Last Admin: 10/26/20 22:47 Dose: Not Given Documented by: Lidocaine HCl (Xylocaine 2% Viscous) Confirm Administered Dose 30 ml .ROUTE .STK-MED ONE Stop: 10/26/20 22:44 Last Admin: 10/26/20 22:47 Dose: Not Given Documented by: Lidocaine HCl (Xylocaine 2% Viscous) 30 ml PO ONETIME ONE Stop: 10/26/20 22:45 Last Admin: 10/26/20 22:47 Dose: Not Given Documented by: Lidocaine HCl (Xylocaine 2% Viscous) 20 ml PO ONETIME ONE Stop: 10/26/20 22:45 Last Admin: 10/26/20 22:46 Dose: 20 ml Documented by: Lidocaine HCl (Xylocaine 2% Viscous) 20 ml PO ONETIME ONE Stop: 10/27/20 16:40 Last Admin: 10/28/20 10:57 Dose: 20 ml Documented by: Lidocaine HCl (Xylocaine 2% Viscous) 20 ml PO Q6HR [facility] Last Admin: 10/28/20 06:33 Dose: Not Given Documented by: Lidocaine HCl (Xylocaine 2% Viscous) Confirm Administered Dose 15 ml .ROUTE .STK-MED ONE Stop: 10/27/20 19:46 Last Admin: 10/27/20 19:54 Dose: Not Given Documented by: Lorazepam (Ativan) 2 mg IVPUSH ONETIME ONE Stop: 10/27/20 10:12 Last Admin: 10/27/20 10:24 Dose: 2 mg Documented by: Lorazepam (Ativan) 2 mg IVPUSH ONETIME ONE Stop: 10/29/20 10:42 Last Admin: 10/29/20 10:51 Dose: 2 mg Documented by: Minocycline HCl (Minocin) 100 mg PO TID [facility] Last Admin: 10/28/20 06:26 Dose: 100 mg Documented by: Morphine Sulfate (Morphine) 4 mg IVPUSH Q3H PRN PRN Reason: Pain Last Admin: 10/27/20 15:13 Dose: 4 mg Documented by: Morphine Sulfate (Morphine) 2 mg IVPUSH ONETIME ONE Stop: 10/28/20 12:42 Last Admin: 10/28/20 16:22 Dose: 2 mg Documented by: Morphine Sulfate (Morphine) 2 mg IVPUSH ONETIME ONE Stop: 10/29/20 00:58 Last Admin: 10/29/20 01:14 Dose: 2 mg Documented by: Morphine Sulfate (Morphine) 2 mg IVPUSH BEDTIME PRN PRN Reason: Pain Last Admin: 10/29/20 20:25 Dose: 2 mg Documented by: Morphine Sulfate (Morphine) 2 mg IVPUSH Q3H PRN PRN Reason: Pain Last Admin: 10/30/20 23:03 Dose: 2 mg Documented by: Non-Formulary Medication (Nf Drug) 0 each BUCCAL Q3H PRN PRN Reason: oral pain Last Admin: 10/28/20 20:26 Dose: 6 each Documented by: Biotene Oral Rinse 0 each .XX QID PRN PRN Reason: dry mouth Last Admin: 10/30/20 22:56 Dose: 1 each Documented by: Ondansetron HCl (Zofran) 4 mg IVPUSH ONETIME ONE Stop: 10/26/20 21:24 Last Admin: 10/26/20 21:49 Dose: 4 mg Documented by: Ondansetron HCl (Zofran) 4 mg IVPUSH Q4H PRN PRN Reason: Nausea/Vomiting Last Admin: 10/31/20 02:57 Dose: 4 mg Documented by: Oxycodone HCl (Oxycodone) 10 mg PO Q6H PRN PRN Reason: Pain (moderate 4-6) Last Admin: 10/28/20 05:31 Dose: 10 mg Documented by: Oxycodone HCl (Oxycodone) 10 mg PO Q6H [facility] Last Admin: 10/29/20 05:38 Dose: 10 mg Documented by: Oxycodone HCl (Oxycodone) 10 mg PO Q6H PRN PRN Reason: Pain Oxycodone HCl (Oxycodone) 10 mg PO Q6H PRN PRN Reason: Pain Last Admin: 10/31/20 02:53 Dose: 10 mg Documented by: Penicillin G Benzathine (Bicillin L-A) 2.4 millunits IM ONETIME ONE Stop: 10/27/20 10:38 Last Admin: 10/27/20 11:26 Dose: 2.4 millunits Documented by: Potassium Chloride (Klor-Con M20) 40 meq PO ONETIME ONE Stop: 10/30/20 10:15 Last Admin: 10/30/20 11:25 Dose: 40 meq Documented by: Sertraline HCl (Zoloft) 50 mg PO DAILY [facility] Last Admin: 10/31/20 08:39 Dose: 50 mg Documented by: Sodium Chloride (Saline Flush) 10 ml FLUSH ASDIRECTED PRN PRN Reason: Keep Vein Open Last Admin: 01/10/21 21:49 Dose: 10 ml Documented by: Sodium Chloride (Saline Flush) 2.5 ml FLUSH ASDIRECTED PRN PRN Reason: Keep Vein Open Last Admin: 10/26/20 21:49 Dose: 2.5 ml Documented by: - Free Text/Narrative Note: I have seen and evaluated the patient. I have discussed findings and treatment plan with resident. I agree with the assessment and plan in the following note.
== END 2020-10-31 13:20 | disposition home or self-care (01) | DRG 114 ==
LOC: MW.ED 21:12 → MW.MS 22:53 → OBSVTOIN 10-28 10:57 → MW.MS 10-28 17:22
PROVIDERS: ADMIT Student in an Organized Health Care Education/Training Program; ATTEND Student in an Organized Health Care Education/Training Program
DX: B00.2 Herpesviral gingivostomatitis and pharyngotonsillitis (principal); N17.9 Acute kidney failure, unspecified; E86.0 Dehydration; H54.7 Unspecified visual loss; I10 Essential (primary) hypertension; F41.9 Anxiety disorder, unspecified; Z20.822 Contact with and (suspected) exposure to COVID-19; E11.9 Type 2 diabetes mellitus without complications; E66.9 Obesity, unspecified; K13.70 Unspecified lesions of oral mucosa; E87.6 Hypokalemia; Z79.84 Long term (current) use of oral hypoglycemic drugs; Z79.899 Other long term (current) drug therapy; Z86.718 Personal history of other venous thrombosis and embolism; Z68.42 Body mass index [BMI] 45.0-49.9, adult
CPT/HCPCS: 36415; 80048; 80053; 82962; 83735; 84100; 84703; 85025; 87389; 87529; 87651-QW; 96365; 96366; 96372; 96374; 96375; 96376; 99284; 99284-25; A9270-GY; C9113; G0378; J0133; J0561; J1100; J1170; J1650; J1885; J2060; J2270; J2405; J3010; J7030; J7050; J7120; U0002

== ENCOUNTER 2022-07-26 05:25 | Emergency (ER) | payer BC | END 2022-07-26 09:35 | disposition home or self-care (01) | LOC: MW.ED 05:25 | DX: O03.9 Complete or unspecified spontaneous abortion without complication (principal); Z3A.01 Less than 8 weeks gestation of pregnancy | CPT/HCPCS: 76817; 76817-26; 99284 ==

== ENCOUNTER 2023-12-24 09:54 | Emergency (ER) | payer BC ==
[2023-12-24] MEDS: Sodium Chloride 0.9% 10 ML Syringe FLUSH PRN (11:08)
[2023-12-24] MEDS: Sodium Chloride 0.9% 2.5 ML Syringe FLUSH PRN (11:08)
[2023-12-24] MEDS: Ondansetron 4 MG/2 ML SDV IVPUSH STA (11:08)
[2023-12-24 11:17] LABS: BASOPHILS ABSOLUTE AUTO 0.06 K/uL (0.00-0.20); BASOPHILS PERCENT AUTO 0.8 % (0.0-1.0); EOSINOPHILS ABSOLUTE AUTO 0.22 K/uL (0.00-0.45); EOSINOPHILS PERCENT AUTO 2.9 % (0.0-6.0); HEMATOCRIT 38.3 % (37.0-47.0); HEMOGLOBIN 12.4 g/dL (12.0-16.0); IMMATURE GRAN ABSOLUTE AUTO 0.02 K/uL (0.00-0.05); IMMATURE GRAN PERCENT AUTO 0.3 % (0.0-0.4); MEAN CORPUSCULAR HEMOGLOBIN 27.2 pg (28.0-32.0); MEAN CORPUSCULAR HGB CONC 32.4 g/dL (32.0-36.0); MONOCYTES ABSOLUTE AUTO 0.54 K/uL (0.00-0.80); NEUTROPHILS ABSOLUTE AUTO 4.84 K/uL (1.80-7.70); PLATELET COUNT,PLT 332 K/uL (150-400); RED BLOOD CELL COUNT 4.56 M/uL (4.10-5.30); WHITE BLOOD CELL COUNT,WBC 7.68 K/uL (3.9-11.3)
[2023-12-24 11:32] LABS: INR 1.03 (0.86-1.11); PTT,PARTIAL THROMBOPLSTIN TIME 30.9 SEC (23.9-30.7)
[2023-12-24 11:41] LABS: A/G RATIO 0.9 (0.9-1.6); ALANINE AMINOTRANSFERASE,ALT 27 IU/L (14-63); ALBUMIN 3.7 g/dL (3.4-5.0); ALKALINE PHOSPHATASE 93 U/L (46-116); ASPARTATE AMNIOTRANSFERASE,AST 10 IU/L (15-37); BILIRUBIN TOTAL 0.4 mg/dL (0.2-1.0); BLOOD UREA NITROGEN,BUN 16 mg/dL (7.0-18.0); CALCIUM 8.9 mg/dL (8.5-10.1); CHLORIDE,CL 103 mmol/L (98-107); CREATININE 0.9 mg/dL (0.6-1.0); EST CRCL DRUG DOSING (CG) 118.55 mL/min; ESTIMATED GFR 85 mL/min (>60); GLUCOSE RANDOM 135 mg/dL (74-106); LIPASE 36 U/L (16-77); MAGNESIUM 1.9 mg/dL (1.8-2.4); POTASSIUM,K 4.8 mmol/L (3.5-5.1); PROTEIN TOTAL,TP 7.6 g/dL (6.4-8.2); SODIUM,NA 139 mmol/L (136-145)
[2023-12-24] MEDS: Iopamidol 755 Mg/ML 100 ML Bottle IVPUSH STA (12:08)
[2023-12-24] MEDS: LORazepam 2 MG/ML SDV IVPUSH STA (12:24)
[2023-12-24] MEDS: Ketorolac 30 MG/ML SDV IVPUSH STA (13:44)
[2023-12-24 14:34] VITALS: BP 148/80; PULSE 81
== END 2023-12-24 14:34 | disposition home or self-care (01) ==
LOC: MW.ED 09:54
DX: M62.830 Muscle spasm of back (principal); K80.50 Calculus of bile duct without cholangitis or cholecystitis without obstruction; I10 Essential (primary) hypertension; E11.9 Type 2 diabetes mellitus without complications; E66.9 Obesity, unspecified; Z86.711 Personal history of pulmonary embolism; Z79.899 Other long term (current) drug therapy; Z68.43 Body mass index [BMI] 50.0-59.9, adult; Z79.84 Long term (current) use of oral hypoglycemic drugs; Z75.8 Other problems related to medical facilities and other health care
CPT/HCPCS: 36415; 71275; 80053; 83690; 83735; 84484; 84703; 85025; 85610; 85730; 93005; 96374; 96375; 99284; J1885; J2060; J2405; J3490; Q9967; 93010

== ENCOUNTER 2025-01-08 05:16 | Emergency (ER) | payer BC ==
[2025-01-08 06:05] LABS: APPEARANCE,URINE CLEAR; BILIRUBIN,URINE NEGATIVE (NEGATIVE); COLOR,URINE YELLOW; GLUCOSE,URINE NEGATIVE (NEGATIVE); KETONES,URINE NEGATIVE (NEGATIVE); LEUKOCYTE ESTERASE,URINE SMALL (NEGATIVE); NITRITE,URINE NEGATIVE (NEGATIVE); OCCULT BLOOD,URINE NEGATIVE (NEGATIVE); PROTEIN,URINE NEGATIVE (NEGATIVE); UROBILINOGEN,URINE 0.2 EU/dL (<2.0)
[2025-01-08 06:05] LABS: BASOPHILS ABSOLUTE AUTO 0.05 K/uL (0.00-0.20); BASOPHILS PERCENT AUTO 0.5 % (0.0-1.0); EOSINOPHILS PERCENT AUTO 2.8 % (0.0-6.0); HEMATOCRIT 39.2 % (37.0-47.0); HEMOGLOBIN 13.2 g/dL (12.0-16.0); IMMATURE GRAN ABSOLUTE AUTO 0.03 K/uL (0.00-0.05); IMMATURE GRAN PERCENT AUTO 0.3 % (0.0-0.4); LYMPHOCYTES ABSOLUTE AUTO 3.06 K/uL (1.00-4.80); LYMPHOCYTES PERCENT AUTO 28.8 % (24.0-44.0); MEAN CORPUSCULAR HEMOGLOBIN 28.9 pg (28.0-32.0); MEAN CORPUSCULAR HGB CONC 33.7 g/dL (32.0-36.0); MEAN PLATELET VOLUME 9.5 fL (9.4-12.3); MONOCYTES ABSOLUTE AUTO 0.65 K/uL (0.00-0.80); MONOCYTES PERCENT AUTO 6.1 % (0.0-8.0); NEUTROPHILS ABSOLUTE AUTO 6.52 K/uL (1.80-7.70); NEUTROPHILS PERCENT AUTO 61.5 % (41.0-71.0); PLATELET COUNT,PLT 308 K/uL (150-400); RED BLOOD CELL COUNT 4.56 M/uL (4.10-5.30); WHITE BLOOD CELL COUNT,WBC 10.61 K/uL (3.9-11.3)
[2025-01-08] MEDS ORDERED: Morphine 4 MG/ML Syringe IM ONE (06:07)
[2025-01-08] MEDS: Sodium Chloride 0.9% 1,000 ML IV ONE (06:18)
[2025-01-08] MEDS: Metoclopramide 10 MG/2 ML SDV IVPUSH ONE (06:18)
[2025-01-08 06:24] LABS: BACTERIA,URINE FEW (NEGATIVE); EPITHELIAL CELLS,URINE MODERATE (NONE-FEW); RBC,URINE 0-2 (0-2/HPF)
[2025-01-08] MEDS: Morphine 4 MG/ML Syringe IVPUSH ONE (06:33)
[2025-01-08 06:49] LABS: A/G RATIO 0.9 (0.9-1.6); ALBUMIN 3.3 g/dL (3.4-5.0); BILIRUBIN TOTAL 0.4 mg/dL (0.2-1.0); CARBON DIOXIDE,CO2 25.3 mmol/L (21.0-32.0); EST CRCL DRUG DOSING (CG) 105.67 mL/min; POTASSIUM,K 3.7 mmol/L (3.5-5.1)
[2025-01-08] MEDS: Acetaminophen 1,000 MG in Premix Bag 1 BAG IV ONE (07:54)
[2025-01-08 10:39] VITALS: BP 138/77; PULSE 71
== END 2025-01-08 10:39 | disposition home or self-care (01) ==
LOC: MW.ED 05:16
DX: O99.891 Other specified diseases and conditions complicating pregnancy (principal); M54.14 Radiculopathy, thoracic region; I10 Essential (primary) hypertension; E11.9 Type 2 diabetes mellitus without complications; E66.9 Obesity, unspecified; Z68.41 Body mass index [BMI] 40.0-44.9, adult; Z90.49 Acquired absence of other specified parts of digestive tract; Z87.891 Personal history of nicotine dependence; Z79.84 Long term (current) use of oral hypoglycemic drugs; Z79.899 Other long term (current) drug therapy; Z3A.08 8 weeks gestation of pregnancy
CPT/HCPCS: 36415; 76705; 80053; 81001; 83690; 84702; 85025; 96361; 96374; 96375; 99284; J0131; J2270; J2765; J7030; 99283

== ENCOUNTER 2025-04-14 18:35 | Inpatient (IN) | payer BC ==
[2025-04-14] MEDS ORDERED: Sodium Chloride 0.9% 20 ML SDV IV PRN (18:39)
[2025-04-14] MEDS ORDERED: Calcium Gluconate 10% 1 GM/10 ML SDV IV PRN (18:39)
[2025-04-14] MEDS ORDERED: Sodium Chloride 0.9% 2.5 ML Syringe FLUSH PRN (18:39)
[2025-04-14] MEDS ORDERED: Labetalol 100 MG/20 ML MDV ONE (18:39)
[2025-04-14] MEDS ORDERED: Sodium Chloride 0.9% 10 ML Syringe FLUSH PRN (18:39)
[2025-04-14] MEDS: Labetalol 100 MG/20 ML MDV IVPUSH ONE (18:48)
[2025-04-14 18:54] LABS: HEMATOCRIT 37.2 % (37.0-47.0); HEMOGLOBIN 13.1 g/dL (12.0-16.0); MEAN CORPUSCULAR HEMOGLOBIN 30.5 pg (28.0-32.0); MEAN CORPUSCULAR HGB CONC 35.2 g/dL (32.0-36.0); MEAN CORPUSCULAR VOLUME 86.7 fL (83.0-99.0); MEAN PLATELET VOLUME 9.5 fL (9.4-12.3); PLATELET COUNT,PLT 277 K/uL (150-400); RED BLOOD CELL COUNT 4.29 M/uL (4.10-5.30); WHITE BLOOD CELL COUNT,WBC 14.35 K/uL (3.9-11.3)
[2025-04-14 19:08] LABS: A/G RATIO 0.8 (0.9-1.6); ALBUMIN 3.2 g/dL (3.4-5.0); BILIRUBIN TOTAL 0.3 mg/dL (0.2-1.0); CALCIUM 8.7 mg/dL (8.5-10.1); CARBON DIOXIDE,CO2 23.7 mmol/L (21.0-32.0); CREATININE 0.8 mg/dL (0.6-1.0); EST CRCL DRUG DOSING (CG) 130.8 mL/min; POTASSIUM,K 3.9 mmol/L (3.5-5.1); PROTEIN TOTAL,TP 7.1 g/dL (6.4-8.2); URIC ACID 10.1 mg/dL (2.6-7.2)
[2025-04-14] MEDS: Lactated Ringers 1,000 ML IV SCH (19:23)
[2025-04-14] MEDS: Magnesium Sulfate 4 GM/100 mL 4 GM in Premix Bag 1 BAG IV ONE (19:24)
[2025-04-14] MEDS: Magnesium Sulfate 2 GM/50 mL 2 GM in Premix Bag 1 BAG IV ONE (19:45)
[2025-04-14] MEDS: Magnesium Sulfate 20 GM/500mL 20 GM/500 ML BAG IV SCH (19:57)
[2025-04-14] MEDS ORDERED: NIFEdipine 30 MG Tab.ER PO SCH (20:30)
[2025-04-14] MEDS ORDERED: NIFEdipine 30 MG Tab.ER ONE (20:44)
[2025-04-14] MEDS: Acetaminophen 500 MG Tab PO PRN (20:51)
[2025-04-14] MEDS: NIFEdipine 30 MG Tab.ER PO SCH (20:53)
[2025-04-14] MEDS ORDERED: lamoTRIgine 100 MG Tab PO SCH (21:00)
[2025-04-14 21:01] LABS: CREATININE,URINE RAND 145.5 mg/dL; PROTEIN CREATININE RATIO,URINE 0.1; PROTEIN,URINE RANDOM 13.5 mg/dL (<11.9)
[2025-04-14] MEDS: lamoTRIgine 100 MG Tab PO SCH (21:21)
[2025-04-14] MEDS ORDERED: lamoTRIgine 100 MG Tab PO ONE (21:30)
[2025-04-14] MEDS ORDERED: Enoxaparin 40 MG/0.4 ML Syringe ONE (23:30)
[2025-04-14] MEDS: Enoxaparin 40 MG/0.4 ML Syringe SUBCUT SCH (23:35)
[2025-04-15 06:16] LABS: BASOPHILS ABSOLUTE AUTO 0.06 K/uL (0.00-0.20); BASOPHILS PERCENT AUTO 0.5 % (0.0-1.0); EOSINOPHILS ABSOLUTE AUTO 0.18 K/uL (0.00-0.45); EOSINOPHILS PERCENT AUTO 1.6 % (0.0-6.0); HEMOGLOBIN 12.5 g/dL (12.0-16.0); IMMATURE GRAN ABSOLUTE AUTO 0.03 K/uL (0.00-0.05); IMMATURE GRAN PERCENT AUTO 0.3 % (0.0-0.4); LYMPHOCYTES ABSOLUTE AUTO 3.17 K/uL (1.00-4.80); LYMPHOCYTES PERCENT AUTO 27.5 % (24.0-44.0); MEAN CORPUSCULAR HGB CONC 34.7 g/dL (32.0-36.0); MEAN CORPUSCULAR VOLUME 86.5 fL (83.0-99.0); MEAN PLATELET VOLUME 9.3 fL (9.4-12.3); MONOCYTES ABSOLUTE AUTO 0.56 K/uL (0.00-0.80); MONOCYTES PERCENT AUTO 4.9 % (0.0-8.0); NEUTROPHILS ABSOLUTE AUTO 7.54 K/uL (1.80-7.70); NEUTROPHILS PERCENT AUTO 65.2 % (41.0-71.0); PLATELET COUNT,PLT 284 K/uL (150-400); RED BLOOD CELL COUNT 4.16 M/uL (4.10-5.30); WHITE BLOOD CELL COUNT,WBC 11.54 K/uL (3.9-11.3)
[2025-04-15 06:45] LABS: A/G RATIO 0.8 (0.9-1.6); BILIRUBIN TOTAL 0.3 mg/dL (0.2-1.0); CALCIUM 7.9 mg/dL (8.5-10.1); CARBON DIOXIDE,CO2 24.1 mmol/L (21.0-32.0); EST CRCL DRUG DOSING (CG) 104.64 mL/min; POTASSIUM,K 3.3 mmol/L (3.5-5.1); PROTEIN TOTAL,TP 6.8 g/dL (6.4-8.2)
[2025-04-15] MEDS: Labetalol 100 MG Tab PO SCH (08:41)
[2025-04-15] MEDS: lamoTRIgine 100 MG Tab PO SCH (08:51)
[2025-04-15] MEDS: Prenatal Multivitamin with Calcium/Folic Acid/Iron Tab PO SCH (08:52)
[2025-04-15] MEDS ORDERED: Aspirin 81 MG Tab.Chew PO SCH (09:00)
[2025-04-15] MEDS ORDERED: lamoTRIgine 100 MG Tab PO SCH (09:00)
[2025-04-15] MEDS: Potassium Chloride 10 MEQ in Premix Bag 1 BAG IV SCH (14:49)
[2025-04-15] MEDS: Aspirin 81 MG Tab.Chew PO SCH (15:02)
[2025-04-15 20:08] VITALS: BP 139/84; PULSE 87
[2025-04-18 07:02] LABS: LAMOTROGINE 3.4 ug/mL (3.0-15.0)
== END 2025-04-15 21:01 | disposition home or self-care (01) | DRG 566 ==
LOC: MW.OBCHECK 18:35 → MW.OB 18:35 → OBSVTOIN 18:39 → MW.OBCHECK 18:46 → MW.OB 20:11
PROVIDERS: ADMIT Obstetrics & Gynecology; ATTEND Obstetrics & Gynecology
DX: O99.352 Diseases of the nervous system complicating pregnancy, second trimester (principal); G40.409 Other generalized epilepsy and epileptic syndromes, not intractable, without status epilepticus; O99.212 Obesity complicating pregnancy, second trimester; O10.912 Unspecified pre-existing hypertension complicating pregnancy, second trimester; E66.813 Obesity, class 3; O99.282 Endocrine, nutritional and metabolic diseases complicating pregnancy, second trimester; E87.6 Hypokalemia; O99.112 Other diseases of the blood and blood-forming organs and certain disorders involving the immune mechanism complicating pregnancy, second trimester; D68.59 Other primary thrombophilia; Z3A.21 21 weeks gestation of pregnancy; Z86.711 Personal history of pulmonary embolism; Z79.01 Long term (current) use of anticoagulants; Z79.82 Long term (current) use of aspirin; Z79.899 Other long term (current) drug therapy
CPT/HCPCS: 36415; 76815; 76815-26; 80053; 80175; 82570; 83615; 84156; 84550; 85025; 85027; 86850; 86900; 86901; A9270-GY; J1650; J1920; J3475; J3480; J7120